=== PATIENT | female | born 1940 | race Caucasian/White ===

== ENCOUNTER 2017-11-15 10:36 | Emergency (ER) | payer MEDICARE, OTHER, SELFPAY ==
[2017-11-15 10:37] VITALS: BP 99/50; PULSE 58; RESP 17; TEMP 36.1; O2SAT 100; BMI 21.5
--- NOTE | 2017-11-15 12:06 | CT_ITS ---
STUDY: CT ABDOMEN AND PELVIS WITHOUT CONTRAST REASON FOR EXAM: Female, 77 years old. Abdominal pain and diarrhea. RADIATION DOSAGE (If Supplied By Facility): CTDIvol = ( 6.09 ) mGy, DLP = ( 283.11 ) mGycm TECHNIQUE: Transaxial images were obtained from the dome of the diaphragm to the symphysis pubis without oral contrast, and without intravenous contrast. Sagittal and coronal images were reconstructed. Individualized dose optimization techniques were used for this CT. COMPARISON: Comparison is made with prior study dated April 07, 2017. FINDINGS: The visualized lung bases are unremarkable. The visualized portions of the heart are within normal limits. Normal liver. There are surgical clips in the gallbladder fossa consistent with a prior cholecystectomy. Normal spleen. Normal pancreas. Normal bilateral adrenal glands. Normal right kidney. Normal left kidney. Normal visualized stomach. Normal small intestine. There are multiple colonic diverticula consistent with diverticulosis. The appendix is visualized and appears normal. There is diffuse atherosclerotic calcification of the abdominal aorta and its major visceral branches, without a demonstrated aneurysm. Normal inferior vena cava. There is borderline retroperitoneal lymphadenopathy with enlarged nodes no greater than 10mm in the short axis diameter. Normal urinary bladder. Normal abdominal wall. There are diffuse degenerative changes of the visualized lumbar spine. CT/Abdomen/Pelvis without Cont IMPRESSION: Sigmoid diverticulosis. No inflammatory changes are seen at this time. Electronically Signed: Miki Fuentes MD at 14:12 EDT Tel [phone], Service support ,
[2017-11-15 13:05] VITALS: PULSE 60; RESP 16
[2017-11-15] MEDS: 0.9% Normal Saline 1,000 ML 1000 ML IV (13:16)
[2017-11-15] MEDS: Ondansetron 4 MG/2 ML Vial IV (13:17)
[2017-11-15 13:26] LABS: ALB/GLOB Ratio 0.8 RATIO (0.9-2.4); AST(SGOT) 43 U/L (15-37); Alanine Aminotransfer ALT/SGPT 43 U/L (13-56); Alkaline Phosphatase 111 U/L (45-117); Anion Gap 8 (5-15); BUN 11 mg/dL (7-18); BUN/Creat Ratio 12.6 RATIO (10-20); Calcium,Total 9.4 mg/dL (8.5-10.1); Chloride 102 mmol/L (98-107); Creatinine, Serum 0.87 mg/dL (0.55-1.02); EST Glomerular Filtration Rate 67 mL/min (>60); Est Glom Filt Rate - Afr Amer 81 mL/min (>60); Estimated Creatinine Clearance 48.73 ml/min; Globulin 4.9 g/dL (2.2-4.2); Glucose 87 mg/dL (74-106); Lipase 172 U/L (73-393); Potassium 3.9 mmol/L (3.5-5.1); Protein, Total 8.9 g/dL (6.4-8.2); Sodium Level 138 mmol/L (136-145)
[2017-11-15 13:39] LABS: Absolute Lymphocyte Count 2.65 X10^3/ul (0.83-4.51); Absolute Neutrophil Count 5.9 X10^3/uL (2.0-7.7); Basophil# 0.03 X10^3/uL; Basophil% 0.3 % (0-1); Eosinophil# 0.18 X10^3/uL; Eosinophils% 1.9 % (0-5); Hematocrit 40.9 % (37-47); Hemoglobin 12.9 g/dl (12.0-15.0); Lymphocyte # 2.65 X10^3/ul (4.0); Lymphocyte % 27.9 % (19-41); Mean Corp Hgb Conc 31.5 g/gl (32-36); Mean Corpuscular Hgb 29.5 pg (27.0-32.0); Mean Corpuscular Volume 93.4 fL (81-99); Mean Platelet Vol. 10.7 fl (6.2-12.0); Monocyte# 0.67 X10^3/uL; Monocyte% 7.1 % (0-10); Neutrophil # 5.94 X10^3/uL (2.7-7.7); Neutrophil % 62.6 % (47-70); Platelet Count 273 K/mm3 (150-450); RBC Distribution Width CV 14.1 % (11.6-14.6); RBC Distribution Width SD 46.2 fl (35.1-43.9); Red Blood Count 4.38 M/mm3 (4.2-5.4); White Blood Count 9.5 K/mm3 (4.4-11.0)
[2017-11-15 13:41] LABS: POSITIVE COUNT NO; POSITIVE DIFFERENTIAL NO; POSITIVE MORPHOLOGY NO
[2017-11-15 14:20] LABS: International Normalized Ratio 2.7; Prothrombin Time (Protime)PT. 28.8 SECONDS (11.7-14.9)
--- NOTE | 2017-11-15 15:01 | ED.DCSUM_ITS ---
- ER Visit Summary Date of Service: 11/15/17 Chief Complaint: Abdominal pain and diarrhea History of Present Illness: The patient is a 77 F who states that for the past 4 days she has had diarrhea. She notes 2 episodes last night an episode this morning. She notes a crampy pain that comes and goes across her upper abdomen. She notes a history of IBS as well as diverticulitis. She is on digoxin as well as Coumadin for atrial fibrillation. She denies any fevers. She denies any blood in stool. She has been not eating as much but has been drinking water and notes that her urine is the same color as before the diarrhea. Physical Examination: Afebrile vital signs are stable blood pressure 99/56 which the patient states is normal. Gen: Well-nourished well-developed Head: Normocephalic atraumatic Eyes: Perrl EOMI ENT: TMs clear no rhinorrhea moist mucous membranes Neck: Supple no lymphadenopathy no JVD nontender CVS: Regular rate rhythm no murmurs normal S1-S2 Respiratory: No distress clear to auscultation bilaterally chest nontender Abdomen: Soft nontender nondistended normal bowel sounds no masses Back: Nontender Extremity: Nontender no edema Skin: Normal color no rash Neuro: alert orientated ?3 CN II-XII intact normal strength sensation reflexes gait cerebellar Psych: Normal affect normal mood Test Results: A [address] the pelvis without IV contrast did not demonstrate any colitis. Emergency Department Course and Treatment: Patient received IV fluids and Zofran. Patient will be discharged home with supportive care with instructions for Imodium. She is to continue hydration. She would like to advance her diet to think this is reasonable. Return if worsening or concerns. Impression: 1. Diarrhea This note was generated with [employer] dictation software. It may contain incorrect words, spelling, and punctuation that were not noted in review of the chart prior to signing ED Disposition - Plan for ED Patient: Disposition: Home or Assisted Living Chief Complaint: Diarrhea Instructions: ED Diarrhea Viral Referrals: Kwabena Marques MD [Primary Care Provider] - 3-5 Days if not improving
[2017-11-15 15:06] LABS: Digoxin Level 1.37 ng/mL (0.80-2.00)
[2017-11-15 15:47] VITALS: BP 116/52; PULSE 61; RESP 16
== END 2017-11-15 15:48 | disposition home or self-care (01) ==
PROVIDERS: Emergency Provider Emergency Medicine; Family Provider Family Medicine; PCP Family Medicine
DX: K58.0 Irritable bowel syndrome with diarrhea (principal); R10.9 Unspecified abdominal pain; R11.0 Nausea; I48.91 Unspecified atrial fibrillation; Z79.01 Long term (current) use of anticoagulants
CPT/HCPCS: 74176; 80053; 80162; 83690; 85025; 85610; 99283; J7030; A4216; J2405

== ENCOUNTER 2021-04-30 09:22 | Inpatient (IN) | payer MEDICARE, OTHER, SELFPAY ==
[2021-04-30] VITALS (30 sets, daily range): BP systolic 83–127; BP diastolic 38–88; PULSE 70–161; RESP 16–24; TEMP 35.9–37.2; O2SAT 87–96; BMI 23.0; BMI 22.6
--- NOTE | 2021-04-30 09:37 | EKG12_ITS ---
Test Reason : SOB Blood Pressure : / mmHG Vent. Rate : 095 BPM Atrial Rate : 202 BPM P-R Int : 000 ms QRS Dur : 074 ms QT Int : 336 ms P-R-T Axes : 000 076 099 degrees QTc Int : 422 ms Atrial fibrillation Nonspecific ST abnormality Abnormal ECG Confirmed by REJI FLEMING, LAITH ([id number]), film editor supervisor JACE EPPS ([id number]) on 05/02/2021 11:26:24 AM Referred By: MR Confirmed By:LAITH MENDOZA MD
--- NOTE | 2021-04-30 09:41 | ED.VIS.DYS ---
HPI History of Present Illness Chief Complaint: Shortness of Breath Narrative Narrative: Patient presenting for evaluation secondary to shortness of breath. Patient has a underlying history of chronically atrial fibrillation on anticoagulation, hypothyroidism, and mild intermittent asthma. Patient apparently had a relatively sudden onset of symptoms. Associated with cough, shortness of breath, chills, and dry heaves that started yesterday. Patient states that she has been feeling generally ill. She has not measured her temperature at home. She denies any chest pain. She denies any abdominal pain. She does feel that potentially she is getting dehydrated. Daughter called EMS EMS noted that the patient had low pulse ox is in the 70s and 80s she was placed on supplemental oxygen was brought to the emergency department. Patient denies any sick contacts. Review of systems otherwise negative. PFSH PFSH Home Medications acetaminophen [Tylenol] 325 mg PO Q4H PRN PRN 04/10/16 [History Last Taken 04/09/16] digoxin 0.125 mg PO DAILY 04/10/16 [History Last Taken 04/26/16 10:20] levothyroxine 50 mcg PO DAILY 04/10/16 [History Last Taken 04/26/16 05:30] cholestyramine (with sugar) 4 g PO DAILY 30 Days powder 04/14/16 [Rx Last Taken Unknown] loperamide 2 mg PO Q4H PRN PRN #0 capsule 04/14/16 [Rx Last Taken Unknown] metoprolol tartrate 50 mg PO BID tablet 04/14/16 [Rx Last Taken Unknown] multivitamin,[id number]-[id number]-thsgfokh [Therems-M] 1 tab PO DAILY 04/18/16 [History Last Taken 04/26/16 09:25] pantoprazole 40 mg PO DAILY tablet 04/26/16 [Rx Last Taken 04/26/16 09:25] ondansetron 4 mg PO Q8H PRN PRN #60 tablet 05/02/16 [Rx Last Taken Unknown] sertraline 100 mg PO DAILY #30 tablet 05/02/16 [Rx Last Taken Unknown] alprazolam 0.25 mg PO QHS 04/07/17 [History Last Taken Unknown] amoxicillin-pot clavulanate 875 mg PO Q12H #20 tablet 04/07/17 [Rx Last Taken Unknown] mometasone [Asmanex 220 mcg Twisthaler] 440 mcg INHALATION DAILY PRN 04/07/17 [History Last Taken Unknown] ondansetron 4 mg PO Q8H PRN PRN #10 tab 04/07/17 [Rx Last Taken Unknown] oxycodone 5 mg PO Q6H PRN PRN #20 tablet 04/07/17 [Rx Last Taken Unknown] warfarin [Jantoven] 2.5 mg PO DAILY 04/07/17 [History Last Taken Unknown] dicyclomine mg 04/30/21 [History Last Taken Unknown] warfarin [Jantoven] 04/30/21 [History Last Taken Unknown] Allergy/AdvReac Type Severity Reaction Status Date / Time morphine Allergy Intermediate Other Verified 04/30/21 09:44 aspirin Allergy Rash, hives Verified 04/30/21 09:44 Iodinated Contrast Media Allergy Hives Verified 04/30/21 09:44 [DYEE] Tetanus Vaccines and Toxoid Allergy Rash Verified 04/30/21 09:44 codeine AdvReac Severe Other Verified 04/30/21 09:44 azithromycin AdvReac Other Verified 04/30/21 09:44 [From Zithromax Z-Landen] cefaclor [From Ceclor] AdvReac Vomiting Verified 04/30/21 09:44 metronidazole [From Flagyl] AdvReac Nausea Verified 04/30/21 09:44 Sulfa (Sulfonamide AdvReac double Verified 04/30/21 09:44 Antibiotics) vision Social History Smoking Status: Former smoker ROS ROS ED Constitutional Constitutional ED: Reports chills ENT ENT ED: Denies rhinorrhea Cardiovascular Cardiovascular: Denies chest pain Respiratory/Chest Respiratory/Chest: Reports cough and dyspnea Gastrointestinal Gastrointestinal: Reports nausea and vomiting Genitourinary Genitourinary ED: Denies dysuria or hematuria Musculoskeletal Musculoskeletal: Denies back pain Integumentary Denies rash Neurologic Neurologic: Denies paresthesias or weakness Psychiatric Psychiatric: Denies depression Endocrine Endocrinology: Denies fatigue Allergic/Immunologic Allergic/Immunologic ED: Denies urticaria EXAM Physical Exam Const Vital Signs: 04/30/21 09:23 04/30/21 09:28 04/30/21 09:29 Temperature 98 F 98 F Temperature Source Oral Oral Pulse Rate 78 78 Respiratory Rate 24 H 24 H Respiratory Effort Short of Breath Respiratory Depth Deep Respiratory Pattern Hyperpnea Blood Pressure 83/58 L 83/58 L Blood Pressure Mean 66 66 Pulse Ox 87 93 Oxygen Delivery Method Room Air Nasal Cannula Oxygen Flow Rate (L/min) 2 2 04/30/21 09:45 04/30/21 09:46 04/30/21 10:11 Temperature 98 F Temperature Source Oral Pulse Rate Respiratory Rate Respiratory Effort Respiratory Depth Respiratory Pattern Blood Pressure 90/49 L Blood Pressure Mean 62 Pulse Ox 93 Oxygen Delivery Method Nasal Cannula Oxygen Flow Rate (L/min) 2 04/30/21 10:29 04/30/21 10:48 04/30/21 10:49 Temperature 98.9 F Temperature Source Temporal Pulse Rate Respiratory Rate Respiratory Effort Respiratory Depth Respiratory Pattern Blood Pressure 99/54 L Blood Pressure Mean 69 Pulse Ox 94 Oxygen Delivery Method Nasal Cannula Oxygen Flow Rate (L/min) 04/30/21 10:50 04/30/21 11:14 04/30/21 11:32 Temperature 98.9 F 98.9 F 99 F Temperature Source Temporal Temporal Temporal Pulse Rate 78 78 Respiratory Rate 24 H 24 H Respiratory Effort Respiratory Depth Respiratory Pattern Blood Pressure 99/54 L 99/54 L 114/88 H Blood Pressure Mean 69 69 96 Pulse Ox 94 94 Oxygen Delivery Method Nasal Cannula Nasal Cannula Oxygen Flow Rate (L/min) 2 2 04/30/21 11:34 Temperature 99 F Temperature Source Temporal Pulse Rate 80 Respiratory Rate 24 H Respiratory Effort Respiratory Depth Respiratory Pattern Blood Pressure 114/88 H Blood Pressure Mean 96 Pulse Ox 94 Oxygen Delivery Method Nasal Cannula Oxygen Flow Rate (L/min) 2 Positive well nourished and well developed Constitutional Narrative: Elderly female not acutely distressed General Appearance ED: well developed and NAD HEENT Reports dry mucous membranes Negative for trauma or tenderness Mouth ED: Yes dry mucous membranes Mouth: dry mucous membranes Eyes EOMs intact bilaterally Neck no lymphadenopathy, supple and no JVD Chest Wall inspection of chest normal Resp normal respiratory effort Resp Narrative: Rales noted throughout the left lung Cardio regular rate, no murmurs and peripheral pulses 2+ throughout Cardio Narrative: Irregular rhythm 2+ radial pulses bilaterally symmetric GI normal to inspection, nondistended, normoactive bowel sounds, non-tender and no masses Palpation: soft Back/Spine normal to inspection Extremity normal to inspection General Extremety ED: Negative for tenderness Neuro oriented x3 and no sensory deficits noted Sensorium / Orientation: alert Motor Exam: strength 5/5 throughout Psych mental status grossly normal Skin no rashes or lesions noted MDM MDM MDM Narrative Medical decision making narrative: Patient presented secondary to shortness of breath. Patient was noted to be hypoxic on room air has unilateral abnormal breath sounds, my supposition is that the patient likely has pneumonia. Chest x-ray by my personal review as well as radiology demonstrates asymmetry on the left with prominent interstitial markings potentially consistent with pneumonia patient was noted to have a leukocytosis. Patient was given fluids as she presented with modest hypotension she has a leukocytosis of 24,000 she was given Rocephin and azithromycin. Patient's blood pressure was fluid responsive, her lactic acid resulted as 4 so she was given additional fluid resuscitation. Patient has mild JOYCE. This is a presentation of severe sepsis with fluid responsive hypotension. Patient will be admitted for further treatment. Lab Data Labs: Laboratory Results - last 24 hr 04/30/21 04/30/21 04/30/21 09:30 10:10 10:10 WBC 24.0 H RBC 4.41 Hgb 13.4 Hct 41.1 MCV 93.2 MCH 30.4 MCHC 32.6 RDW Std Deviation 49.6 H RDW Coeff of Saundra 14.5 Plt Count 158 MPV 10.7 Immature Gran % (Auto) 1.200 H Neut % (Auto) 83.5 H Lymph % (Auto) 10.1 L [place] % (Auto) 4.8 Eos % (Auto) 0.0 Baso % (Auto) 0.4 Absolute Neuts (auto) 20.0 H Absolute Lymphs (auto) 2.41 Nucleated RBC % 0 PT 23.8 H INR 2.2 APTT 38.3 H Sodium Potassium Chloride Carbon Dioxide Anion Gap BUN Creatinine Estim Creat Clear Calc Est GFR (MDRD) Af Amer Est GFR (MDRD) Non-Af BUN/Creatinine Ratio Glucose Lactic Acid Calcium Magnesium 1.8 Total Bilirubin AST ALT Alkaline Phosphatase Total Creatine Kinase 29 Total Protein Albumin Globulin Albumin/Globulin Ratio 04/30/21 04/30/21 10:10 10:10 WBC RBC Hgb Hct MCV MCH MCHC RDW Std Deviation RDW Coeff of Saundra Plt Count MPV Immature Gran % (Auto) Neut % (Auto) Lymph % (Auto) [place] % (Auto) Eos % (Auto) Baso % (Auto) Absolute Neuts (auto) Absolute Lymphs (auto) Nucleated RBC % PT INR APTT Sodium 141 Potassium 4.0 Chloride 106 Carbon Dioxide 27.0 Anion Gap 8 BUN 21 H Creatinine 1.25 H Estim Creat Clear Calc 32.30 Est GFR (MDRD) Af Amer 53 L Est GFR (MDRD) Non-Af 44 L BUN/Creatinine Ratio 16.8 Glucose 134 H Lactic Acid 4.3 H* Calcium 9.7 Magnesium Total Bilirubin 2.80 H AST 38 H ALT 37 Alkaline Phosphatase 87 Total Creatine Kinase Total Protein 7.5 Albumin 3.2 Globulin 4.3 H Albumin/Globulin Ratio 0.7 L Radiography Diagnostic Testing: Clinical Impression(s) from Imaging Studies Chest X-Ray 04/30/21 09:50 IMPRESSION: Cardiomegaly. Prominent interstitial markings within the left midlung, may be secondary to confluence of shadows however cannot exclude underlying edema and/or an infectious process. Electronically Signed: Nieves Torres MD at 10:05 EST Tel , Service support , Critical Care Time Critical care time (excluding procedures): 30-74 minutes (41), Including time spent:, Discussing w/Patient &/or Family/Financial Services Agent, Discussing w/Consultants, Arranging Admission or Transfer and Performing Direct Patient Care at Bedside Discharge Plan Dx/Rx/DC Orders Clinical Impression: Community acquired pneumonia, Severe sepsis Disposition Disposition: Acute Care [facility] Discharge Date/Time: 04/30/21 12:31
--- NOTE | 2021-04-30 09:50 | RAD_ITS ---
STUDY: X-RAY CHEST REASON FOR EXAM: Female, 80 years old. Shortness of breath TECHNIQUE: Single frontal view of the chest. COMPARISON: 04/10/2016 FINDINGS: There are prominent interstitial markings within the left midlung. There is stable minimal left basilar atelectasis and/or scarring. There is cardiomegaly. Normal mediastinum and jorge luis. Normal visualized pulmonary arteries. Normal visualized aortic arch and descending thoracic aorta. Normal visualized thoracic spine. Normal visualized ribs, clavicles, and shoulders. There is no demonstrated abnormality of the visualized soft tissue structures of the upper abdomen. RAD/Chest 1 View (Portable) IMPRESSION: Cardiomegaly. Prominent interstitial markings within the left midlung, may be secondary to confluence of shadows however cannot exclude underlying edema and/or an infectious process. Electronically Signed: Nieves Torres MD at 10:05 EST Tel , Service support ,
[2021-04-30] MEDS: 0.9% Normal Saline 1,000 ML 999 ML IV ×2 (10:02→13:09)
[2021-04-30] MEDS: Ondansetron 4 MG/2 ML Vial IV ×2 (10:02→12:21)
[2021-04-30 10:24] LABS: Absolute Lymphocyte Count 2.41 X10^3/uL (0.83-4.51); Basophil% 0.4 % (0-1); Hematocrit 41.1 % (37-47); Hemoglobin 13.4 g/dL (12.0-15.0); Lymphocyte # 2.41 X10^3/ul (0.83-4.51); Lymphocyte % 10.1 % (19-41); Mean Corp Hgb Conc 32.6 g/dL (32-36); Mean Corpuscular Hgb 30.4 pg (27.0-32.0); Mean Corpuscular Volume 93.2 fL (81-99); Mean Platelet Vol. 10.7 fl (6.2-12.0); Monocyte# 1.15 X10^3/uL; Monocyte% 4.8 % (0-10); NRBC Flagged by Analyzer 0 % (0-5); Neutrophil # 20.02 X10^3/uL (2.7-7.7); Neutrophil % 83.5 % (47-70); POSITIVE DIFFERENTIAL YES; Platelet Count 158 K/mm3 (150-450); RBC Distribution Width CV 14.5 % (11.6-14.6); RBC Distribution Width SD 49.6 fl (35.1-43.9); Red Blood Count 4.41 M/mm3 (4.2-5.4)
[2021-04-30 10:27] LABS: Differential Indicated SCAN CRITERIA MET
[2021-04-30 10:31] LABS: International Normalized Ratio 2.2; Partial Thromboplast Time 38.3 Seconds (24.1-36.2); Prothrombin Time (Protime)PT. 23.8 SECONDS (11.7-14.9)
[2021-04-30 10:40] LABS: ALB/GLOB Ratio 0.7 RATIO (0.9-2.4); AST(SGOT) 38 U/L (15-37); Alanine Aminotransfer ALT/SGPT 37 U/L (13-56); Albumin, Serum 3.2 g/dL (3.2-5.0); Alkaline Phosphatase 87 U/L (45-117); Anion Gap 8 (5-15); BUN 21 mg/dL (7-18); BUN/Creat Ratio 16.8 RATIO (10-20); Calcium,Total 9.7 mg/dL (8.5-10.1); Chloride 106 mmol/L (98-107); Creatinine, Serum 1.25 mg/dL (0.55-1.02); EST Glomerular Filtration Rate 44 mL/min (>60); Est Glom Filt Rate - Afr Amer 53 mL/min (>60); Globulin 4.3 g/dL (2.2-4.2); Glucose 134 mg/dL (74-106); Protein, Total 7.5 g/dL (6.4-8.2); Sodium Level 141 mmol/L (136-145)
[2021-04-30] MEDS: Ceftriaxone 1 GM/50 ML BAG IV (11:06)
[2021-04-30 11:16] LABS: Lactic Acid 4.3 mmol/L (0.4-1.9)
[2021-04-30] MEDS: 0.9% Normal Saline 1,000 ML 1000 ML IV (11:23)
--- NOTE | 2021-04-30 11:48 | PCM.HP.STD ---
HPI - General General Date of Admission: 04/30/21 HPI Narrative ION MUNIZ, is a 80 F with multiple medical problems as listed below was brought in by EMS for shortness of breath, shallow and slow breathing, mild cough low-grade fever and hypoxia. Patient has been feeling weak and tired for last 1 week but yesterday she developed chills, cough, dry heaving, body aches and shortness of breath. She was found hypoxic pulse ox 85% on room air, not on oxygen at baseline. Patient has history of asthma but does not use his rescue inhaler, in fact she does not have and does not require it. She uses maintenance inhaler Asmanex. She had Covid vaccine but did not had booster yet. In ED, she was found hypotensive blood pressure 83/58, baseline systolic 110 during her last PCP office visit in February 2021. T-max 99 Fahrenheit. Her blood pressure responded with IV fluid, 110/88. Lactic acid elevated, 4.3. Leukocytosis with left shift, immature granulocytes. INR therapeutic. Magnesium 1.8. Chest x-ray shows interstitial opacity over left midlung. Patient is started on ceftriaxone and further admitted azithromycin [facility] Home Medications acetaminophen [Tylenol] 325 mg PO Q4H PRN PRN 04/10/16 [History Last Taken 04/09/16] digoxin 0.125 mg PO DAILY 04/10/16 [History Last Taken 04/26/16 10:20] levothyroxine 50 mcg PO DAILY 04/10/16 [History Last Taken 04/26/16 05:30] cholestyramine (with sugar) 4 g PO DAILY 30 Days powder 04/14/16 [Rx Last Taken Unknown] loperamide 2 mg PO Q4H PRN PRN #0 capsule 04/14/16 [Rx Last Taken Unknown] metoprolol tartrate 50 mg PO BID tablet 04/14/16 [Rx Last Taken Unknown] multivitamin,[id number] [Therems-M] 1 tab PO DAILY 04/18/16 [History Last Taken 04/26/16 09:25] pantoprazole 40 mg PO DAILY tablet 04/26/16 [Rx Last Taken 04/26/16 09:25] ondansetron 4 mg PO Q8H PRN PRN #60 tablet 05/02/16 [Rx Last Taken Unknown] sertraline 100 mg PO DAILY #30 tablet 05/02/16 [Rx Last Taken Unknown] alprazolam 0.25 mg PO QHS 04/07/17 [History Last Taken Unknown] amoxicillin-pot clavulanate 875 mg PO Q12H #20 tablet 04/07/17 [Rx Last Taken Unknown] mometasone [Asmanex 220 mcg Twisthaler] 440 mcg INHALATION DAILY PRN 04/07/17 [History Last Taken Unknown] ondansetron 4 mg PO Q8H PRN PRN #10 tab 04/07/17 [Rx Last Taken Unknown] oxycodone 5 mg PO Q6H PRN PRN #20 tablet 04/07/17 [Rx Last Taken Unknown] warfarin [Jantoven] 2.5 mg PO DAILY 04/07/17 [History Last Taken Unknown] dicyclomine mg 04/30/21 [History Last Taken Unknown] warfarin [Jantoven] 04/30/21 [History Last Taken Unknown] Allergy/AdvReac Type Severity Reaction Status Date / Time morphine Allergy Intermediate Other Verified 04/30/21 09:44 aspirin Allergy Rash, hives Verified 04/30/21 09:44 Iodinated Contrast Media Allergy Hives Verified 04/30/21 09:44 [DYEE] Tetanus Vaccines and Toxoid Allergy Rash Verified 04/30/21 09:44 codeine AdvReac Severe Other Verified 04/30/21 09:44 azithromycin AdvReac Other Verified 04/30/21 09:44 [From Zithromax Z-Landen] cefaclor [From Ceclor] AdvReac Vomiting Verified 04/30/21 09:44 metronidazole [From Flagyl] AdvReac Nausea Verified 04/30/21 09:44 Sulfa (Sulfonamide AdvReac double Verified 04/30/21 09:44 Antibiotics) vision Social History Smoking Status: Former smoker ROS ROS Narrative Constitutional: Reports fatigue and weakness. Chills HEENT: Reports systems reviewed and no addt'l complaints, except as documented Respiratory/Chest: Denies chest pain, shallow and slow breathing as per daughter Gastrointestinal: Denies coffee ground emesis, hematemesis or vomiting Genitourinary: Denies burning urination or new urinary tract symptoms Musculoskeletal: Left shoulder pain probably from shortness of breath. Denies chronic left shoulder pain. Reports arthritis and limited range of motion in lower extremities Neurologic: Denies seizure-like activity skin: No ulcer. No rash Endocrinology: Reports systems reviewed and no addt'l complaints, except as documented Hematologic/Lymphatic: Reports systems reviewed and no addt'l complaints, except as documented Rest 12 ROS are negative except as mentioned in HPI Vital Signs Vital Signs Vital Signs: 04/30/21 09:23 04/30/21 09:28 04/30/21 09:29 Temperature 98 F 98 F Temperature Source Oral Oral Pulse Rate 78 78 Respiratory Rate 24 H 24 H Respiratory Effort Short of Breath Respiratory Depth Deep Respiratory Pattern Hyperpnea Blood Pressure 83/58 L 83/58 L Blood Pressure Mean 66 66 Pulse Ox 87 93 Oxygen Delivery Method Room Air Nasal Cannula Oxygen Flow Rate (L/min) 2 2 04/30/21 09:45 04/30/21 09:46 04/30/21 10:11 Temperature 98 F Temperature Source Oral Pulse Rate Respiratory Rate Respiratory Effort Respiratory Depth Respiratory Pattern Blood Pressure 90/49 L Blood Pressure Mean 62 Pulse Ox 93 Oxygen Delivery Method Nasal Cannula Oxygen Flow Rate (L/min) 2 04/30/21 10:29 04/30/21 10:48 04/30/21 10:49 Temperature 98.9 F Temperature Source Temporal Pulse Rate Respiratory Rate Respiratory Effort Respiratory Depth Respiratory Pattern Blood Pressure 99/54 L Blood Pressure Mean 69 Pulse Ox 94 Oxygen Delivery Method Nasal Cannula Oxygen Flow Rate (L/min) 04/30/21 10:50 04/30/21 11:14 04/30/21 11:32 Temperature 98.9 F 98.9 F 99 F Temperature Source Temporal Temporal Temporal Pulse Rate 78 78 Respiratory Rate 24 H 24 H Respiratory Effort Respiratory Depth Respiratory Pattern Blood Pressure 99/54 L 99/54 L 114/88 H Blood Pressure Mean 69 69 96 Pulse Ox 94 94 Oxygen Delivery Method Nasal Cannula Nasal Cannula Oxygen Flow Rate (L/min) 2 2 Weight Weight: 138 lb 3.677 oz Body Mass Index (BMI) 23.0 Physical Exam Narrative General: Alert, Oriented x3, Cooperative HEENT: Atraumatic, PERRLA, EOMI, Normocephalic Oral: No Gingival or Mucosal Lesions/ Ulcerations Neck: Supple, No JVD, Negative Carotid Bruits Lungs: Air entry diminished predominantly in left lung. Mild bilateral expiratory rhonchi mainly left lung. Hypoxia Cardiovascular: A. fib, Normal S1, Normal S2, mid diastolic murmur over cardiac apex Abdomen: Bowel Sounds Present, Soft, Non Tender, Non-Distended : No renal angle tenderness. No suprapubic tenderness. Extremities: No edema, Capillary Refill Less than 3 Seconds Skin: No rashes, No breakdown Musculoskeletal: No Tenderness to Palpation of Joints or Extremities Neurological: Cranial nerves II-XII grossly intact, DTR 2+/4 and Symmetrical, Neuro grossly intact Psych/Mental Status: Flat affect. Results Lab / Micro Data Result Diagrams: 04/30/21 10:10 04/30/21 10:10 Labs: Laboratory Results - last 24 hr 04/30/21 10:10: WBC 24.0 H, RBC 4.41, Hgb 13.4, Hct 41.1, MCV 93.2, MCH 30.4, MCHC 32.6, RDW Std Deviation 49.6 H, RDW Coeff of Saundra 14.5, Plt Count 158, MPV 10.7, Immature Gran % (Auto) 1.200 H, Neut % (Auto) 83.5 H, Lymph % (Auto) 10.1 L, [place] % (Auto) 4.8, Eos % (Auto) 0.0, Baso % (Auto) 0.4, Absolute Neuts (auto) 20.0 H, Absolute Lymphs (auto) 2.41, Nucleated RBC % 0 04/30/21 10:10: PT 23.8 H, INR 2.2, APTT 38.3 H 04/30/21 10:10: Sodium 141, Potassium 4.0, Chloride 106, Carbon Dioxide 27.0, Anion Gap 8, BUN 21 H, Creatinine 1.25 H, Estim Creat Clear Calc 32.30, Est GFR (MDRD) Af Amer 53 L, Est GFR (MDRD) Non-Af 44 L, BUN/Creatinine Ratio 16.8, Glucose 134 H, Calcium 9.7, Total Bilirubin 2.80 H, AST 38 H, ALT 37, Alkaline Phosphatase 87, Total Protein 7.5, Albumin 3.2, Globulin 4.3 H, Albumin/Globulin Ratio 0.7 L 04/30/21 10:10: Lactic Acid 4.3 H* Micro: Microbiology 04/30/21 09:50 Mucosa - Nasopharyngeal Influenza Types A,B Direct FA (TYREE) - Final 04/30/21 09:50 Nasal Secretion SARS-CoV-2 Antigen (Rapid) - Final Radiology Impression Chest X-Ray 04/30/21 09:50 IMPRESSION: Cardiomegaly. Prominent interstitial markings within the left midlung, may be secondary to confluence of shadows however cannot exclude underlying edema and/or an infectious process. Electronically Signed: Nieves Torres MD at 10:05 EST Tel , Service support , Assessment & Plan Assessment/Plan (1) Community acquired pneumonia: (2) Severe sepsis: PLAN: 1. Septic shock (hypotension, lactic acidosis 4.3, total bilirubin 2.8, creatinine 1.25, leukocytosis with left shift) from left community-acquired pneumonia: Patient responded appropriately with IV fluid and blood pressure 114/88, 106/52. Continue IV fluid normal saline 100 mill per hour. Started on broad-spectrum antibiotic IV Zosyn and continue Zithromax for atypical coverage. Pneumonia work-up ordered. COVID-19 rapid antigen negative, PCR pending. MRSA nasal screen ordered. 2. Asthma exacerbation mostly due to pneumonia: IV Solu-Medrol 20 mg lower dose every 8 hourly, DuoNeb every 4 hourly, incentive spirometry and PEP. 3. Chronic A. fib on warfarin: INR is therapeutic. Hold antihypertensive and metoprolol today and resume when clinical status/hypotension improves and stabilizes on baseline. 4. Irritable bowel syndrome, diverticulosis, history of a sphincterotomy/removal of CBD sludge by ERCP in April 2016: Intermittently patient gets constipation, soft bowel/loose bowel movement. Monitor clinically. 5. Other comorbidities include chronic GERD/gastritis, hypothyroidism: Home medication reconciliation VTE prophylaxis: Patient on warfarin INR therapeutic. Monitor INR daily Living will/advanced directive/end of life care: Patient does have living will or advanced directive. Her is power of district attorney who is also elderly and daughter is trying to change, POA to her. After discussion of benefits/risks procedures involved with full code, DNR CC arrest and DNR CC, the patient and her daughter Mrs. Dailey Navarro unclear. His daughter said she will ask from her father and discuss among their family. By default we will put full code. Patient does want artificial life support including intubation, tube feed, ventilator and/chest compression, central venous catheter, vasopressor and DC shock if needed Total time spent in [id number] encounter in discussion of advanced directive 16 minutes. Microbiology Past 72 Hours 04/30/21 09:50 Mucosa - Nasopharyngeal Influenza Types A,B Direct FA (TYREE) - Final 04/30/21 09:50 Nasal Secretion SARS-CoV-2 Antigen (Rapid) - Final Laboratory Results 04/30/21 09:30: Magnesium 1.8, Total Creatine Kinase 29 04/30/21 10:10: WBC 24.0 H, RBC 4.41, Hgb 13.4, Hct 41.1, MCV 93.2, MCH 30.4, MCHC 32.6, RDW Std Deviation 49.6 H, RDW Coeff of Saundra 14.5, Plt Count 158, MPV 10.7, Immature Gran % (Auto) 1.200 H, Neut % (Auto) 83.5 H, Lymph % (Auto) 10.1 L, [place] % (Auto) 4.8, Eos % (Auto) 0.0, Baso % (Auto) 0.4, Absolute Neuts (auto) 20.0 H, Absolute Lymphs (auto) 2.41, Nucleated RBC % 0 04/30/21 10:10: PT 23.8 H, INR 2.2, APTT 38.3 H 04/30/21 10:10: Sodium 141, Potassium 4.0, Chloride 106, Carbon Dioxide 27.0, Anion Gap 8, BUN 21 H, Creatinine 1.25 H, Estim Creat Clear Calc 32.30, Est GFR (MDRD) Af Amer 53 L, Est GFR (MDRD) Non-Af 44 L, BUN/Creatinine Ratio 16.8, Glucose 134 H, Calcium 9.7, Total Bilirubin 2.80 H, AST 38 H, ALT 37, Alkaline Phosphatase 87, Total Protein 7.5, Albumin 3.2, Globulin 4.3 H, Albumin/Globulin Ratio 0.7 L 04/30/21 10:10: Lactic Acid 4.3 H* 04/30/21 11:43: COVID-19 ([place]) Pending Charges/Coding Visit Charges Inpatient E&M: 12307 Init Hosp L3 Procedures Hospitalists Procedures: 27531 Advncd Care Plan 30 Min
[2021-04-30 12:23] LABS: CPK Total, Creatine Kinase 29 U/L (26-192); Magnesium 1.8 mg/dL (1.6-2.6)
--- NOTE | 2021-04-30 13:23 | PCS.PANDOC ---
PANDEMIC DOCUMENTATION INITIATED: Date: 12/27/2020 Time: 190
[2021-04-30] MEDS: 0.9% Normal Saline 1,000 ML 100 ML IV (14:08)
[2021-04-30 14:14] LABS: Reflex Lactate? Y
[2021-04-30 15:08] LABS: M R Staph aureus DNA By PCR Negative (Negative)
[2021-04-30 15:09] LABS: Probe Check PASS; Specimen Processing Control PASS
[2021-04-30] MEDS: Ipratropium/Albuterol Sulfate 3 ML AMPUL.NEB INHALATION ×2 (15:15→18:57)
[2021-04-30 15:29] LABS: Lactic Acid 7.2 mmol/L (0.4-1.9)
[2021-04-30] MEDS: Metoclopramide 10 MG/2 ML Vial 5 MG IV (15:40)
[2021-04-30] MEDS: 0.9% Saline Lock 10 ML Syringe IV (15:40)
[2021-04-30] MEDS: Vancomycin IV 1,000 MG/200 ML BAG 200 MG IV (18:22)
[2021-04-30 18:57] LABS: Phosphorus 4.1 mg/dL (2.5-4.9)
[2021-04-30 19:34] LABS: Mucous, Urine 0 SEEN /hpf (<or=2+)
[2021-04-30 19:51] LABS: Lactic Acid 4.6 mmol/L (0.4-1.9)
[2021-04-30 19:58] LABS: Color, Urine Yellow (Yellow); Glucose, Dipstick Normal (Normal); Ketone-Dipstick 5 mg/dl (Negative); Leukocyte Esterase-Dipstick 25 /ul (Negative); Nitrite-Dipstick Negative (Negative); Occult Blood-Urine 10 /ul (Negative); Protein-Dipstick 30 mg/dl (Negative); Urine Bilirubin Dipstick Negative (Negative); Urine Clarity Cloudy (Clear); Urine Urobilinogen Normal (Normal)
[2021-04-30 20:04] LABS: Squamous Epithelial Cells - UA 0-5 SEEN /hpf (5-10)
[2021-04-30 20:06] LABS: Bacteria 1+ /hpf (None Seen); Hyaline Cast 0-5 SEEN /lpf (0-5)
[2021-04-30 20:08] LABS: Red Blood Cells-Urine 0-5 SEEN /hpf (0-5); White Blood Cells 0-5 SEEN /hpf (0-5)
--- NOTE | 2021-04-30 20:11 | PCM.RX.CS ---
Consult Pharmacy has been consulted to manage selected antiobiotic: Vancomycin Type of Consult: New start Suspected Infection: Pneumonia Labs: Sodium 141 mmol/L (136-145) 04/30/21 10:10 Potassium 4.0 mmol/L (3.5-5.1) 04/30/21 10:10 Chloride 106 mmol/L (98-107) 04/30/21 10:10 Carbon Dioxide 27.0 mmol/L (21.0-32.0) 04/30/21 10:10 Anion Gap 8 (5-15) 04/30/21 10:10 BUN 21 mg/dL (7-18) H 04/30/21 10:10 Creatinine 1.25 mg/dL (0.55-1.02) H 04/30/21 10:10 Est GFR (MDRD) Af Amer 53 mL/min (>60) L 04/30/21 10:10 Est GFR (MDRD) Non-Af 44 mL/min (>60) L 04/30/21 10:10 BUN/Creatinine Ratio 16.8 RATIO (10-20) 04/30/21 10:10 Glucose 134 mg/dL (74-106) H 04/30/21 10:10 Microbiology: Microbiology 04/30/21 17:45 Urine, Clean Catch Legionella Antigen - Final 04/30/21 17:45 Urine, Clean Catch Streptococcus pneumoniae Antigen (M - Final 04/30/21 13:45 Mucosa - Nasopharyngeal Respiratory Panel (PCR) - Final 04/30/21 09:50 Mucosa - Nasopharyngeal Influenza Types A,B Direct FA (TYREE) - Final 04/30/21 09:50 Nasal Secretion SARS-CoV-2 Antigen (Rapid) - Final Goal Trough: 15-20 mcg/mL Pharmacy Plan for Drug Dosing: Pharmacy Service will continue to monitor and adjust dosing as required. Medications Vancomycin HCl 750 mg/ Sodium (Chloride) 265 mls @ 250 mls/hr IV Q24H MIKE Discontinued Medications Vancomycin HCl (Vancomycin) 1,000 mg in 200 mls @ 200 mls/hr IV X1 ONE Stop: 04/30/21 18:59 Last Admin: 04/30/21 19:22 Dose: Infused Documented by: Follow-Up Labs: Trough Vancomycin Labs to be done on [date and time ordered]: 05/02 @ 0417
[2021-04-30] MEDS: 0.9% Normal Saline 1,000 ML 500 ML IV (20:28)
[2021-04-30 22:50] LABS: Reflex Lactate? Y
[2021-05-01] VITALS (22 sets, daily range): BP systolic 93–125; BP diastolic 51–74; PULSE 74–129; RESP 15–22; TEMP 35.8–36.7; O2SAT 93–99
[2021-05-01] MEDS: 0.9% Normal Saline 1,000 ML 125 ML IV ×2 (00:38→07:27)
[2021-05-01] MEDS: Ipratropium/Albuterol Sulfate 3 ML AMPUL.NEB INHALATION ×4 (06:48→18:54)
[2021-05-01 06:54] LABS: Absolute Lymphocyte Count 1.79 X10^3/uL (0.83-4.51); Absolute Neutrophil Count 17.6 X10^3/uL (2.0-7.7); Basophil# 0.06 X10^3/uL; Basophil% 0.3 % (0-1); Hematocrit 34.5 % (37-47); Hemoglobin 11.2 g/dL (12.0-15.0); Lymphocyte # 1.79 X10^3/ul (0.83-4.51); Lymphocyte % 8.6 % (19-41); Mean Corp Hgb Conc 32.5 g/dL (32-36); Mean Corpuscular Hgb 29.6 pg (27.0-32.0); Mean Platelet Vol. 11.2 fl (6.2-12.0); Monocyte# 1.02 X10^3/uL; Monocyte% 4.9 % (0-10); NRBC Flagged by Analyzer 0 % (0-5); Neutrophil # 17.56 X10^3/uL (2.7-7.7); Neutrophil % 83.8 % (47-70); Platelet Count 121 K/mm3 (150-450); RBC Distribution Width CV 14.9 % (11.6-14.6); RBC Distribution Width SD 49.9 fl (35.1-43.9); Red Blood Count 3.79 M/mm3 (4.2-5.4); White Blood Count 20.9 K/mm3 (4.4-11.0)
[2021-05-01 06:57] LABS: International Normalized Ratio 3.4; Prothrombin Time (Protime)PT. 33.5 SECONDS (11.7-14.9)
[2021-05-01 07:32] LABS: Anion Gap 8 (5-15); BUN 15 mg/dL (7-18); BUN/Creat Ratio 19.6 RATIO (10-20); Calcium,Total 8.1 mg/dL (8.5-10.1); Chloride 114 mmol/L (98-107); Creatinine, Serum 0.77 mg/dL (0.55-1.02); EST Glomerular Filtration Rate 77 mL/min (>60); Est Glom Filt Rate - Afr Amer 93 mL/min (>60); Glucose 141 mg/dL (74-106); Sodium Level 144 mmol/L (136-145)
[2021-05-01] MEDS: Digoxin 125 MCG Tablet PO (09:28)
[2021-05-01] MEDS: Pantoprazole Sodium 40 MG Tablet PO (09:29)
[2021-05-01] MEDS: Sertraline 100 MG Tablet PO (09:29)
[2021-05-01] MEDS: Doxycycline 100 MG CAPSULE PO ×2 (11:34→22:47)
--- NOTE | 2021-05-01 12:55 | PCM.PN.HOSP ---
Subjective Subjective Patient breathing status is better. No fever. Blood pressure 91/61 last night therefore 1 L was given. Patient is positive for liter balance therefore discontinue IV fluid. Temperature 96.8 ?F low. Objective Data Objective Data Vital Signs: Vital Signs Temp Pulse Resp BP Pulse Ox 96.7 F L 100 20 H 114/74 94 05/01/21 11:00 05/01/21 11:07 05/01/21 11:07 05/01/21 11:00 05/01/21 11:00 Oxygen Flow Rate (L/min) 2 Oxygen Delivery Method Nasal Cannula Weight: 140 lb 3.424 oz Body Mass Index (BMI) 22.6 Intake & Output: Intake and Output for Last 24 Hours 04/29/21 04/30/21 05/01/21 23:59 23:59 23:59 Intake Total 5045.42 / 5045.42 1861.66 / 1861.66 Output Total 900 / 900 700 / 700 Balance 4145.42 / 4145.42 1161.66 / 1161.66 Lab / Micro Data Result Diagrams: 05/01/21 06:19 05/01/21 06:19 Labs: Laboratory Results - last 24 hr 04/30/21 09:30: Phosphorus 4.1 04/30/21 11:43: COVID-19 ([place]) Not Detected 04/30/21 13:40: MRSA (PCR) Negative 04/30/21 14:40: Lactic Acid 7.2 H* 04/30/21 17:45: Urine Color Yellow, Urine Clarity Cloudy, Urine pH 5.0, Ur Specific [place] 1.020, Urine Protein 30 H, Urine Glucose (UA) Normal, Urine Ketones 5 H, Urine Occult Blood 10 H, Urine Nitrite Negative, Urine Bilirubin Negative, Urine Urobilinogen Normal, Ur Leukocyte Esterase 25 H, Urine RBC 0-5 SEEN, Urine WBC 0-5 SEEN, Ur Squamous Epith Cells 0-5 SEEN, Urine Bacteria 1+, Hyaline Casts 0-5 SEEN, Urine Mucus 0 SEEN 04/30/21 18:40: Lactic Acid 4.6 H* 05/01/21 06:19: WBC 20.9 H, RBC 3.79 L, Hgb 11.2 L, Hct 34.5 L, MCV 91.0, MCH 29.6, MCHC 32.5, RDW Std Deviation 49.9 H, RDW Coeff of Saundra 14.9 H, Plt Count 121 L, MPV 11.2, Immature Gran % (Auto) 2.400 H, Neut % (Auto) 83.8 H, Lymph % (Auto) 8.6 L, [place] % (Auto) 4.9, Eos % (Auto) 0.0, Baso % (Auto) 0.3, Absolute Neuts (auto) 17.6 H, Absolute Lymphs (auto) 1.79, Nucleated RBC % 0 05/01/21 06:19: Sodium 144, Potassium 4.0, Chloride 114 H, Carbon Dioxide 22.0, Anion Gap 8, BUN 15, Creatinine 0.77, Estim Creat Clear Calc 42.00, Est GFR (MDRD) Af Amer 93, Est GFR (MDRD) Non-Af 77, BUN/Creatinine Ratio 19.6, Glucose 141 H, Calcium 8.1 L 05/01/21 06:19: PT 33.5 H, INR 3.4 Micro: Microbiology 04/30/21 17:45 Urine, Clean Catch Legionella Antigen - Final 04/30/21 17:45 Urine, Clean Catch Streptococcus pneumoniae Antigen (M - Final 04/30/21 13:45 Mucosa - Nasopharyngeal Respiratory Panel (PCR) - Final 04/30/21 09:50 Mucosa - Nasopharyngeal Influenza Types A,B Direct FA (TYREE) - Final 04/30/21 09:50 Nasal Secretion SARS-CoV-2 Antigen (Rapid) - Final Physical Exam Narrative The patient had 6 beats of NSVT. Serum magnesium phosphorus level normal. Serum potassium 4.0. General: Alert, Oriented x3, Cooperative HEENT: Atraumatic, PERRLA, EOMI, Normocephalic Oral: No Gingival or Mucosal Lesions/ Ulcerations Neck: Supple, No JVD, Negative Carotid Bruits Lungs: Air entry diminished in bilateral lung bases. Mild expiratory rhonchi. Mild bilateral expiratory rhonchi mainly left lung. Hypoxia on 2 L of oxygen Cardiovascular: A. fib, heart rate in 90s normal S1, Normal S2, mid diastolic murmur over cardiac apex Abdomen: Bowel Sounds Present, Soft, Non Tender, Non-Distended : No renal angle tenderness. No suprapubic tenderness. Extremities: No edema, Capillary Refill Less than 3 Seconds Skin: No rashes, No breakdown Musculoskeletal: No Tenderness to Palpation of Joints or Extremities Neurological: Cranial nerves II-XII grossly intact, DTR 2+/4 and Symmetrical, Neuro grossly intact Psych/Mental Status: Flat affect. Assessment & Plan Assessment/Plan (1) Community acquired pneumonia: (2) Severe sepsis: PLAN: 1. Septic shock (hypotension, lactic acidosis 4.3, total bilirubin 2.8, creatinine 1.25, leukocytosis with left shift) from left community-acquired pneumonia: Patient responded appropriately with IV fluid and blood pressure 114/88, 106/52. Continue IV fluid normal saline 100 mill per hour. Started on broad-spectrum antibiotic IV Zosyn and continue Zithromax for atypical coverage. Pneumonia work-up ordered. COVID-19 rapid antigen negative, PCR pending. MRSA nasal screen ordered. 05/01: WBC count decreasing. Blood pressure improved. Patient is positive 4 liter balance therefore IV fluid discontinued. Discussed with nursing staff. WBC count improving. Patient does not want to take Zithromax but agreed for doxycycline. Vancomycin discontinued as MRSA nasal screen negative seems community-acquired pneumonia and low risk for MRSA. Respiratory panel negative urinary antigens negative. Previous culture reported no history of MRSA. On IV Zosyn. 2. Asthma exacerbation mostly due to pneumonia: IV Solu-Medrol 20 mg lower dose every 8 hourly, DuoNeb every 4 hourly, incentive spirometry and PEP. 3. Chronic A. fib on warfarin: INR is therapeutic. Hold antihypertensive and metoprolol today and resume when clinical status/hypotension improves and stabilizes on baseline. 05/01: INR 3.4. Warfarin discontinued. Monitor INR daily. 4. Irritable bowel syndrome, diverticulosis, history of a sphincterotomy/removal of CBD sludge by ERCP in April 2016: Intermittently patient gets constipation, soft bowel/loose bowel movement. Monitor clinically. 5. Other comorbidities include chronic GERD/gastritis, hypothyroidism: Home medication reconciliation VTE prophylaxis: Patient on warfarin INR therapeutic. Monitor INR daily Living will/advanced directive/end of life care: Patient does have living will or advanced directive. Her is power of criminal attorney who is also elderly and daughter is trying to change, POA to her. After discussion of benefits/risks procedures involved with full code, DNR CC arrest and DNR CC, the patient and her daughter Mrs. Dailey [place] unclear. His daughter said she will ask from her father and discuss among their family. By default we will put full code. Patient does want artificial life support including intubation, tube feed, ventilator and/chest compression, central venous catheter, vasopressor and DC shock if needed Total time spent in [id number] encounter in discussion of advanced directive 16 minutes. Microbiology Past 72 Hours 04/30/21 17:45 Urine, Clean Catch Legionella Antigen - Final 04/30/21 17:45 Urine, Clean Catch Streptococcus pneumoniae Antigen (M - Final 04/30/21 13:45 Mucosa - Nasopharyngeal Respiratory Panel (PCR) - Final 04/30/21 09:50 Mucosa - Nasopharyngeal Influenza Types A,B Direct FA (TYREE) - Final 04/30/21 09:50 Nasal Secretion SARS-CoV-2 Antigen (Rapid) - Final Laboratory Results 04/30/21 09:30: Phosphorus 4.1 04/30/21 11:43: COVID-19 ([place]) Not Detected 04/30/21 13:40: MRSA (PCR) Negative 04/30/21 14:40: Lactic Acid 7.2 H* 04/30/21 17:45: Urine Color Yellow, Urine Clarity Cloudy, Urine pH 5.0, Ur Specific [place] 1.020, Urine Protein 30 H, Urine Glucose (UA) Normal, Urine Ketones 5 H, Urine Occult Blood 10 H, Urine Nitrite Negative, Urine Bilirubin Negative, Urine Urobilinogen Normal, Ur Leukocyte Esterase 25 H, Urine RBC 0-5 SEEN, Urine WBC 0-5 SEEN, Ur Squamous Epith Cells 0-5 SEEN, Urine Bacteria 1+, Hyaline Casts 0-5 SEEN, Urine Mucus 0 SEEN 04/30/21 18:40: Lactic Acid 4.6 H* 05/01/21 06:19: WBC 20.9 H, RBC 3.79 L, Hgb 11.2 L, Hct 34.5 L, MCV 91.0, MCH 29.6, MCHC 32.5, RDW Std Deviation 49.9 H, RDW Coeff of Saundra 14.9 H, Plt Count 121 L, MPV 11.2, Immature Gran % (Auto) 2.400 H, Neut % (Auto) 83.8 H, Lymph % (Auto) 8.6 L, [place] % (Auto) 4.9, Eos % (Auto) 0.0, Baso % (Auto) 0.3, Absolute Neuts (auto) 17.6 H, Absolute Lymphs (auto) 1.79, Nucleated RBC % 0 05/01/21 06:19: Sodium 144, Potassium 4.0, Chloride 114 H, Carbon Dioxide 22.0, Anion Gap 8, BUN 15, Creatinine 0.77, Estim Creat Clear Calc 42.00, Est GFR (MDRD) Af Amer 93, Est GFR (MDRD) Non-Af 77, BUN/Creatinine Ratio 19.6, Glucose 141 H, Calcium 8.1 L 05/01/21 06:19: PT 33.5 H, INR 3.4 Charges/Coding Visit Charges Inpatient E&M: 28841 Subs Hosp L2
[2021-05-01] MEDS: 0.9% Saline Lock 10 ML Syringe IV ×2 (13:09→23:05)
[2021-05-01] MEDS: Metoprolol Tartrate 25 MG Tablet PO (17:51)
[2021-05-01] MEDS: Acetaminophen 325 MG Tablet 650 MG PO (20:17)
[2021-05-02] VITALS (18 sets, daily range): BP systolic 123–152; BP diastolic 64–80; PULSE 73–97; RESP 16–22; TEMP 36.4–36.7; O2SAT 92–96
[2021-05-02] MEDS: Levothyroxine 50 MCG Tablet PO (05:18)
[2021-05-02 06:22] LABS: Absolute Lymphocyte Count 1.18 X10^3/uL (0.83-4.51); Absolute Neutrophil Count 17.8 X10^3/uL (2.0-7.7); Basophil# 0.03 X10^3/uL; Basophil% 0.2 % (0-1); Hemoglobin 10.6 g/dL (12.0-15.0); Lymphocyte # 1.18 X10^3/ul (0.83-4.51); Lymphocyte % 5.9 % (19-41); Mean Corp Hgb Conc 32.1 g/dL (32-36); Mean Corpuscular Hgb 30.1 pg (27.0-32.0); Mean Corpuscular Volume 93.8 fL (81-99); Mean Platelet Vol. 11.5 fl (6.2-12.0); Monocyte# 0.64 X10^3/uL; Monocyte% 3.2 % (0-10); NRBC Flagged by Analyzer 0 % (0-5); Neutrophil # 17.83 X10^3/uL (2.7-7.7); Neutrophil % 89.6 % (47-70); Platelet Count 114 K/mm3 (150-450); RBC Distribution Width SD 52.1 fl (35.1-43.9); Red Blood Count 3.52 M/mm3 (4.2-5.4); White Blood Count 19.9 K/mm3 (4.4-11.0)
[2021-05-02 06:25] LABS: Prothrombin Time (Protime)PT. 39.3 SECONDS (11.7-14.9)
[2021-05-02 06:45] LABS: Anion Gap 6 (5-15); BUN 15 mg/dL (7-18); BUN/Creat Ratio 22.5 RATIO (10-20); Calcium,Total 9.2 mg/dL (8.5-10.1); Chloride 112 mmol/L (98-107); Creatinine, Serum 0.67 mg/dL (0.55-1.02); EST Glomerular Filtration Rate 90 mL/min (>60); Est Glom Filt Rate - Afr Amer 109 mL/min (>60); Glucose 139 mg/dL (74-106); Potassium 3.8 mmol/L (3.5-5.1); Sodium Level 141 mmol/L (136-145)
[2021-05-02] MEDS: Ipratropium/Albuterol Sulfate 3 ML AMPUL.NEB INHALATION ×4 (07:24→20:25)
[2021-05-02 07:57] LABS: International Normalized Ratio 4.1
[2021-05-02] MEDS: Digoxin 125 MCG Tablet PO (09:08)
[2021-05-02] MEDS: Sertraline 100 MG Tablet PO (09:09)
[2021-05-02] MEDS: Metoprolol Tartrate 25 MG Tablet PO ×2 (09:09→20:32)
[2021-05-02] MEDS: Pantoprazole Sodium 40 MG Tablet PO (09:09)
[2021-05-02] MEDS: Doxycycline 100 MG CAPSULE PO ×2 (09:09→20:32)
[2021-05-02] MEDS: Acetaminophen 325 MG Tablet 650 MG PO (09:13)
--- NOTE | 2021-05-02 11:50 | CASEMGMT ---
ARACELI GERBER assessment: Face to Face with patient for initial transition planning/care coordination assessment. ARACELI GERBER introduced self and role at [facility], pt voices understanding and consents to assessment. Pt is sitting up in chair in no distress on room air. Pt is A/Ox4 and answers all questions appropriately. Pt's daughter, Hermelinda, is at bedside during assessment. Care providers, pharmacy, and demographics verified. Presentation: Pt c/o not feeling well after dinner the night before, c/o chills, SOB, nausea, pulse ox 85% on RA Admitting dx: Sepsis, pna PCP: Shelli Specialists: Priya, eyes; Yolis, cardio; Joellen GI [facility] [place] Insurance: [facility] A/B, AAR Prescription Benefit: [employer] Living Will/HPOA: Pt/daughter believe that pt does have LW/HPOA but pt only has financial POA on file at [facility]. Pt/daughter aware. LNOK: Kwabena Adorno, ; Ashlie Israel, daughter; Beverly Adorno, daughter Living Arrangements: Pt lives with in 1 story home and states no concerns at home. Pt is independent with ADL's. Transportation: Pt states drives self or family drives and states no transportation concerns. DME/HHC: Pt has the following DME: cane, walker, director of religious life, and grab bars in shower. Pt states no need for any further DME. Pt states has had HHC in the past and has been to [place] in [place] and [facility] in past. HHC list provided. Pt/daughter state no concerns with pt going home at discharge. Pt is retired. Pt states does not smoke or drink ETOH. Pt states no further concerns/needs. CM to follow for home oxygen need and any further discharge planning/needs. Advised pt/daughter to ask for CM if any further questions/concerns/needs arise, voice understanding. Pt Goal: Home Plan[place] ARACELI GERBER
--- NOTE | 2021-05-02 12:55 | PN.HOSP_ITS ---
Subjective Subjective Doing well, not requiring any oxygen though she does still feel little bit weak. Is concerned about going home today Objective Data Objective Data Vital Signs: Vital Signs Temp Pulse Resp BP Pulse Ox 98.0 F 78 17 123/80 H 96 05/02/21 09:05 05/02/21 11:30 05/02/21 11:18 05/02/21 09:09 05/02/21 10:44 Oxygen Flow Rate (L/min) 2 Oxygen Delivery Method Room Air Weight: 140 lb 3.424 oz Body Mass Index (BMI) 22.6 Intake & Output: Intake and Output for Last 24 Hours 05/01/21 05/02/21 05/03/21 03:59 03:59 03:59 Intake Total 5605.00 / 5605.00 2902.08 / 2902.08 50 / 50 Output Total 900 / 900 1800 / 1800 Balance 4705.00 / 4705.00 1102.08 / 1102.08 50 / 50 Lab / Micro Data Result Diagrams: 05/02/21 05:55 05/02/21 05:55 Labs: Laboratory Results - last 24 hr 05/02/21 05:55: WBC 19.9 H, RBC 3.52 L, Hgb 10.6 L, Hct 33.0 L, MCV 93.8, MCH 30.1, MCHC 32.1, RDW Std Deviation 52.1 H, RDW Coeff of Saundra 15.0 H, Plt Count 114 L, MPV 11.5, Immature Gran % (Auto) 1.100 H, Neut % (Auto) 89.6 H, Lymph % (Auto) 5.9 L, [place] % (Auto) 3.2, Eos % (Auto) 0.0, Baso % (Auto) 0.2, Absolute Neuts (auto) 17.8 H, Absolute Lymphs (auto) 1.18, Nucleated RBC % 0 05/02/21 05:55: Sodium 141, Potassium 3.8, Chloride 112 H, Carbon Dioxide 23.0, Anion Gap 6, BUN 15, Creatinine 0.67, Estim Creat Clear Calc 42.00, Est GFR ( MDRD) Af Amer 109, Est GFR (MDRD) Non-Af 90, BUN/Creatinine Ratio 22.5 H, Glucose 139 H, Calcium 9.2 05/02/21 05:55: PT 39.3 H, INR 4.1 H* Micro: Microbiology 04/30/21 10:10 Blood Culture (Wb) - Left Wrist Blood Culture - Preliminary No growth in 48 hours. 04/30/21 09:30 Blood Culture (Wb) - Right Hand Blood Culture - Preliminary No growth in 48 hours. 04/30/21 17:45 Urine, Clean Catch Urine Culture - Final Mixed Gram Positive Organisms 04/30/21 17:45 Urine, Clean Catch Legionella Antigen - Final 04/30/21 17:45 Urine, Clean Catch Streptococcus pneumoniae Antigen (M - Final 04/30/21 13:45 Mucosa - Nasopharyngeal Respiratory Panel (PCR) - Final 04/30/21 09:50 Mucosa - Nasopharyngeal Influenza Types A,B Direct FA (TYREE) - Final 04/30/21 09:50 Nasal Secretion SARS-CoV-2 Antigen (Rapid) - Final Physical Exam Const alert, oriented x3 and no apparent distress General Appearance: cooperative HEENT normocephalic and moist oral mucous membranes Eyes PERRL, EOMs intact bilaterally and conjunctivae normal Neck supple and no JVD Resp normal respiratory effort, no retractions and no use of accessory muscles Auscultation: diminished lung sounds; Negative for crackles, rales, rhonchi or wheezes Cardio regular rate, regular rhythm, S1 normal heart sound, S2 normal heart sound and no murmurs GI soft to palpation, non-tender and non-distended; Negative for hepatosplenomegaly Extremity no clubbing, cyanosis or edema Skin no rashes or lesions noted Neuro no focal motor deficits and no sensory deficits noted Psych affect normal Appearance: appropriate Assessment & Plan Assessment/Plan (1) Community acquired pneumonia: (2) Severe sepsis: PLAN: 1. Septic shock (hypotension, lactic acidosis 4.3, total bilirubin 2.8, creatinine 1.25, leukocytosis with left shift) from left community- acquired pneumonia: Patient responded appropriately with IV fluid and blood pressure 114/88, 106/52. Continue IV fluid normal saline 100 mill per hour. Started on broad-spectrum antibiotic IV Zosyn and continue Zithromax for atypical coverage. Pneumonia work-up ordered. COVID-19 rapid antigen negative, PCR pending. MRSA nasal screen ordered. 05/01: WBC count decreasing. Blood pressure improved. Patient is positive 4 liter balance therefore IV fluid discontinued. Discussed with nursing staff. WBC count improving. Patient does not want to take Zithromax but agreed for doxycycline. Vancomycin discontinued as MRSA nasal screen negative seems community-acquired pneumonia and low risk for MRSA. Respiratory panel negative urinary antigens negative. Previous culture reported no history of MRSA. On IV Zosyn. 05/02/2021: With IV Zosyn and doxycycline. On discharge recommend Levaquin. She is concerned about azithromycin with QT prolongation and her A. fib. She feels little bit weak today and is uncomfortable going home. Physical therapy does not think that she will need placement. Unable to assess WBC response given the fact that she is on steroids 2. Asthma exacerbation mostly due to pneumonia: IV Solu-Medrol 20 mg lower dose every 8 hourly, DuoNeb every 4 hourly, incentive spirometry and PEP. 3. Chronic A. fib on warfarin: INR is therapeutic. Hold antihypertensive and metoprolol today and resume when clinical status/hypotension improves and stabilizes on baseline. 05/01: INR 3.4. Warfarin discontinued. Monitor INR daily. 05/02/2021: INR is 4.1 therefore continue to hold Coumadin 4. Irritable bowel syndrome, diverticulosis, history of a sphincterotomy/removal of CBD sludge by ERCP in April 2016: Intermittently patient gets constipation, soft bowel/loose bowel movement. Monitor clinically. 5. Other comorbidities include chronic GERD/gastritis, hypothyroidism: Home medication reconciliation DVT: Supratherapeutic INR Charges/Coding Visit Charges Inpatient E&M: 37276 [facility] Hosp L2
[2021-05-02] MEDS: 0.9% Saline Lock 10 ML Syringe IV (13:42)
[2021-05-02] MEDS: Loperamide 2 MG Capsule PO (22:16)
[2021-05-03] VITALS (9 sets, daily range): BP systolic 133–166; BP diastolic 61–98; PULSE 62–82; RESP 18–20; TEMP 36.2–36.6; O2SAT 93–97
[2021-05-03] MEDS: Levothyroxine 50 MCG Tablet PO (05:44)
[2021-05-03 06:44] LABS: Absolute Lymphocyte Count 1.22 X10^3/uL (0.83-4.51); Absolute Neutrophil Count 12.4 X10^3/uL (2.0-7.7); Basophil# 0.01 X10^3/uL; Basophil% 0.1 % (0-1); Hemoglobin 11.1 g/dL (12.0-15.0); Lymphocyte # 1.22 X10^3/ul (0.83-4.51); Lymphocyte % 8.6 % (19-41); Mean Corp Hgb Conc 32.6 g/dL (32-36); Mean Corpuscular Hgb 29.9 pg (27.0-32.0); Mean Corpuscular Volume 91.6 fL (81-99); Mean Platelet Vol. 11.1 fl (6.2-12.0); Monocyte# 0.56 X10^3/uL; Monocyte% 3.9 % (0-10); NRBC Flagged by Analyzer 0 % (0-5); Neutrophil # 12.35 X10^3/uL (2.7-7.7); Neutrophil % 86.7 % (47-70); Platelet Count 142 K/mm3 (150-450); RBC Distribution Width CV 14.9 % (11.6-14.6); RBC Distribution Width SD 50.4 fl (35.1-43.9); Red Blood Count 3.71 M/mm3 (4.2-5.4); White Blood Count 14.2 K/mm3 (4.4-11.0)
[2021-05-03 06:46] LABS: International Normalized Ratio 2.8
[2021-05-03 07:02] LABS: Anion Gap 8 (5-15); BUN 17 mg/dL (7-18); BUN/Creat Ratio 24.1 RATIO (10-20); Chloride 110 mmol/L (98-107); EST Glomerular Filtration Rate 85 mL/min (>60); Est Glom Filt Rate - Afr Amer 103 mL/min (>60); Glucose 142 mg/dL (74-106); Potassium 3.8 mmol/L (3.5-5.1); Sodium Level 143 mmol/L (136-145)
[2021-05-03] MEDS: Ipratropium/Albuterol Sulfate 3 ML AMPUL.NEB INHALATION ×2 (07:35→11:05)
[2021-05-03] MEDS: Doxycycline 100 MG CAPSULE PO (09:43)
[2021-05-03] MEDS: Metoprolol Tartrate 25 MG Tablet PO (09:43)
[2021-05-03] MEDS: Sertraline 100 MG Tablet PO (09:43)
[2021-05-03] MEDS: Digoxin 125 MCG Tablet PO (09:43)
[2021-05-03] MEDS: Pantoprazole Sodium 40 MG Tablet PO (09:43)
--- NOTE | 2021-05-03 10:28 | PCM.DC ---
Discharge Instructions Diet Discharge Diet: Low fat / Low cholesterol Activity Discharge Activity: Return to Normal Activity Dressing / Incision Call your doctor if you observe: Fever of 101 or Higher, Shortness of breath, Dizziness, Fainting spells, Swelling in the ankles, Chest pain and Increased palpitations (irregular heartbeat) Follow Up Care Test Results: Test results from this visit will be discussed in further detail at your follow-up appointment, if applicable. Discharge Plan Admission Admit Date/Time: 04/30/21 11:35 Attending Provider: Myles Reddy Primary Care Provider: Kwabena Marques Instructions Additional Instructions / Restrictions: Levaquin can interact with your Coumadin therefore follow-up with your PCP to obtain an INR prior to restarting your Coumadin. Discharge Orders/Prescriptions Prescriptions: New levofloxacin 750 mg tablet 750 mg PO Q48H Qty: 3 RF: 0 Continued digoxin 0.125 MG/2.5 ML solution 0.125 mg PO DAILY RF: 0 levothyroxine 50 MCG tablet 75 mcg PO DAILY RF: 0 cholestyramine (with sugar) 378 GM powder 4 g PO DAILY 30 Days RF: 0 sertraline 100 MG tablet 100 mg PO DAILY Qty: 30 RF: 0 alprazolam 0.5 MG tablet 0.25 mg PO QHS RF: 0 dicyclomine 20 mg tablet 20 mg PO BID RF: 0 Flovent HFA 220 mcg/actuation HFA aerosol inhaler 2 puff INHALATION BID RF: 0 metoprolol tartrate 25 mg tablet 25 mg PO BID RF: 0 rabeprazole 20 mg tablet,delayed release (DR/EC) 20 mg PO DAILY RF: 0 nitrofurantoin monohyd/m-cryst 100 mg capsule 100 mg PO Q12H RF: 0 Held warfarin [Jantoven] 2 MG tablet 2.5 mg PO DAILY RF: 0 Hold Instructions: Resume on 05/09/21. Referrals / Follow Up: Kwabena Marques MD [Primary Care Provider] - Within 1 Week Disposition Disposition (needs filled in before D/C Order can be placed): Home, Self Care
--- NOTE | 2021-05-03 10:34 | PCM.DC.SUM ---
Providers Date of Admission: 04/30/21 Primary Care Physician: Dr. Kwabena Marques MD Reason For Visit: SEPSIS Diagnosis Discharge Diagnosis (1) Community acquired pneumonia: Status: Acute Code(s): J18.9 - Pneumonia, unspecified organism (2) Severe sepsis: Status: Acute Code(s): A41.9 - Sepsis, unspecified organism; R65.20 - Severe sepsis without septic shock Medications at Discharge Home Medications digoxin 0.125 mg PO DAILY 04/10/16 levothyroxine 75 mcg PO DAILY 04/10/16 cholestyramine (with sugar) 4 g PO DAILY 30 Days powder 04/14/16 sertraline 100 mg PO DAILY #30 tablet 05/02/16 alprazolam 0.25 mg PO QHS 04/07/17 warfarin [Jantoven] 2.5 mg PO DAILY 04/07/17 Flovent HFA 2 puff INHALATION BID 04/30/21 dicyclomine 20 mg PO BID 04/30/21 metoprolol tartrate 25 mg PO BID 04/30/21 nitrofurantoin monohyd/m-cryst 100 mg PO Q12H 04/30/21 rabeprazole 20 mg PO DAILY 04/30/21 levofloxacin 750 mg PO Q48H #3 tab 05/03/21 Hospital Course Operations None Procedures None Summary of Care Provided Minutes Spent on Discharge: 45 Hospital Course: Per HPI: ION MUNIZ, is a 80 F with multiple medical problems as listed below was brought in by EMS for shortness of breath, shallow and slow breathing, mild cough low-grade fever and hypoxia. Patient has been feeling weak and tired for last 1 week but yesterday she developed chills, cough, dry heaving, body aches and shortness of breath. She was found hypoxic pulse ox 85% on room air, not on oxygen at baseline. Patient has history of asthma but does not use his rescue inhaler, in fact she does not have and does not require it. She uses maintenance inhaler Asmanex. She had Covid vaccine but did not had booster yet. In ED, she was found hypotensive blood pressure 83/58, baseline systolic 110 during her last PCP office visit in February 2021. T-max 99 Fahrenheit. Her blood pressure responded with IV fluid, 110/88. Lactic acid elevated, 4.3. Leukocytosis with left shift, immature granulocytes. INR therapeutic. Magnesium 1.8. Chest x-ray shows interstitial opacity over left midlung. Patient is started on ceftriaxone and further admitted azithromycin Hospital Course: 1. Septic shock (hypotension, lactic acidosis 4.3, total bilirubin 2.8, creatinine 1.25, leukocytosis with left shift) from left community-acquired pneumonia: Patient responded appropriately with IV fluid and blood pressure 114/88, 106/52. Continue IV fluid normal saline 100 mill per hour. Started on broad-spectrum antibiotic IV Zosyn and continue Zithromax for atypical coverage. Pneumonia work-up ordered. COVID-19 rapid antigen negative, PCR pending. MRSA nasal screen ordered. 05/01: WBC count decreasing. Blood pressure improved. Patient is positive 4 liter balance therefore IV fluid discontinued. Discussed with nursing staff. WBC count improving. Patient does not want to take Zithromax but agreed for doxycycline. Vancomycin discontinued as MRSA nasal screen negative seems community-acquired pneumonia and low risk for MRSA. Respiratory panel negative urinary antigens negative. Previous culture reported no history of MRSA. On IV Zosyn. 05/02/2021: With IV Zosyn and doxycycline. On discharge recommend Levaquin. She is concerned about azithromycin with QT prolongation and her A. fib. She feels little bit weak today and is uncomfortable going home. Physical therapy does not think that she will need placement. Unable to assess WBC response given the fact that she is on steroids 05/03/2021: She is feeling much better today and would like to go home. Given her creatinine clearance and the fact that she does not want to be on azithromycin, will place her on Levaquin 750 to 48 hours to complete 6 more days on discharge. I do recommend she follow-up with her PCP in 3 to 5 days for evaluation and adjustment of her medications. I also explained to her that Levaquin and Coumadin do interact and her INR today is less than 3 however I do recommend that she hold her Coumadin until she obtain an outpatient INR for evaluation and then her PCP can help monitor her Coumadin and make adjustments as necessary as an outpatient. I did discuss with her the plan for discharge today and she expressed understanding the risk benefits of going home and would like to go home today. 2. Asthma exacerbation mostly due to pneumonia: IV Solu-Medrol 20 mg lower dose every 8 hourly, DuoNeb every 4 hourly, incentive spirometry and PEP. 05/03/2021: This does appear to have resolved, therefore we will hold off on prednisone on discharge however if she does develop wheezing at home her PCP can prescribe her prednisone 3. Chronic A. fib on warfarin: INR is therapeutic. Hold antihypertensive and metoprolol today and resume when clinical status/hypotension improves and stabilizes on baseline. 05/01: INR 3.4. Warfarin discontinued. Monitor INR daily. 05/02/2021: INR is 4.1 therefore continue to hold Coumadin 05/03/2021: INR is less than 3 hold Coumadin and have outpatient follow-up as described above 4. Irritable bowel syndrome, diverticulosis, history of a sphincterotomy/removal of CBD sludge by ERCP in April 2016: Intermittently patient gets constipation, soft bowel/loose bowel movement. Monitor clinically. 5. Other comorbidities include chronic GERD/gastritis, hypothyroidism: Home medication reconciliation Physical Exam Const alert, oriented x3 and no apparent distress General Appearance: cooperative HEENT normocephalic and moist oral mucous membranes Eyes PERRL, EOMs intact bilaterally and conjunctivae normal Neck supple and no JVD Resp normal respiratory effort, no retractions and no use of accessory muscles Auscultation: diminished lung sounds; Negative for crackles, rales, rhonchi or wheezes Cardio regular rate, regular rhythm, S1 normal heart sound, S2 normal heart sound and no murmurs GI soft to palpation, non-tender and non-distended; Negative for hepatosplenomegaly Extremity no clubbing, cyanosis or edema Skin no rashes or lesions noted Neuro no focal motor deficits and no sensory deficits noted Psych affect normal Appearance: appropriate Weight / BMI Weight Weight: 140 lb 3.424 oz Body Mass Index (BMI) 22.6 ABG / Lab / Microbiology Data Result Diagrams: 05/03/21 06:00 05/03/21 06:00 Laboratory: Laboratory Results - last 24 hr 05/03/21 06:00: WBC 14.2 H, RBC 3.71 L, Hgb 11.1 L, Hct 34.0 L, MCV 91.6, MCH 29.9, MCHC 32.6, RDW Std Deviation 50.4 H, RDW Coeff of Saundra 14.9 H, Plt Count 142 L, MPV 11.1, Immature Gran % (Auto) 0.700, Neut % (Auto) 86.7 H, Lymph % (Auto) 8.6 L, [place] % (Auto) 3.9, Eos % (Auto) 0.0, Baso % (Auto) 0.1, Absolute Neuts (auto) 12.4 H, Absolute Lymphs (auto) 1.22, Nucleated RBC % 0 05/03/21 06:00: Sodium 143, Potassium 3.8, Chloride 110 H, Carbon Dioxide 25.0, Anion Gap 8, BUN 17, Creatinine 0.70, Estim Creat Clear Calc 42.00, Est GFR (MDRD) Af Amer 103, Est GFR (MDRD) Non-Af 85, BUN/Creatinine Ratio 24.1 H, Glucose 142 H, Calcium 9.0 05/03/21 06:00: PT 29.0 H, INR 2.8 Microbiology: Microbiology 04/30/21 10:10 Blood Culture (Wb) - Left Wrist Blood Culture - Preliminary No growth in 48 hours. 04/30/21 09:30 Blood Culture (Wb) - Right Hand Blood Culture - Preliminary No growth in 48 hours. 04/30/21 17:45 Urine, Clean Catch Urine Culture - Final Mixed Gram Positive Organisms 04/30/21 17:45 Urine, Clean Catch Legionella Antigen - Final 04/30/21 17:45 Urine, Clean Catch Streptococcus pneumoniae Antigen (M - Final 04/30/21 13:45 Mucosa - Nasopharyngeal Respiratory Panel (PCR) - Final 04/30/21 09:50 Mucosa - Nasopharyngeal Influenza Types A,B Direct FA (TYREE) - Final 04/30/21 09:50 Nasal Secretion SARS-CoV-2 Antigen (Rapid) - Final D/C Instructions Discharge Diet: Low fat / Low cholesterol Call your doctor if you observe: Fever of 101 or Higher, Shortness of breath, Dizziness, Fainting spells, Swelling in the ankles, Chest pain and Increased palpitations (irregular heartbeat) Meaningful Use Info Meaningful Use Diagnoses (Choose all that apply): None applicable Discharge Plan Admission Admit Date/Time: 04/30/21 11:35 Attending Provider: Myles Reddy Primary Care Provider: Kwabena Marques Instructions Additional Instructions / Restrictions: Levaquin can interact with your Coumadin therefore follow-up with your PCP to obtain an INR prior to restarting your Coumadin. Discharge Orders/Prescriptions Prescriptions: New levofloxacin 750 mg tablet 750 mg PO Q48H Qty: 3 RF: 0 Continued digoxin 0.125 MG/2.5 ML solution 0.125 mg PO DAILY RF: 0 levothyroxine 50 MCG tablet 75 mcg PO DAILY RF: 0 cholestyramine (with sugar) 378 GM powder 4 g PO DAILY 30 Days RF: 0 sertraline 100 MG tablet 100 mg PO DAILY Qty: 30 RF: 0 alprazolam 0.5 MG tablet 0.25 mg PO QHS RF: 0 dicyclomine 20 mg tablet 20 mg PO BID RF: 0 Flovent HFA 220 mcg/actuation HFA aerosol inhaler 2 puff INHALATION BID RF: 0 metoprolol tartrate 25 mg tablet 25 mg PO BID RF: 0 rabeprazole 20 mg tablet,delayed release (DR/EC) 20 mg PO DAILY RF: 0 nitrofurantoin monohyd/m-cryst 100 mg capsule 100 mg PO Q12H RF: 0 Held warfarin [Jantoven] 2 MG tablet 2.5 mg PO DAILY RF: 0 Hold Instructions: Resume on 05/09/21. Referrals / Follow Up: Kwabena Marques MD [Primary Care Provider] - Within 1 Week Disposition Disposition (needs filled in before D/C Order can be placed): Home, Self Care Charges/Coding Visit Charges Inpatient E&M: 69286 Disch Hosp
--- NOTE | 2021-05-03 11:02 | CASEMGMT ---
Addendum entered by Jagruti Harkins 05/03/21 11:23: Per Harsh CHALRES, pt does not qualify for home oxygen at discharge. Ernesto CHARLES CM Original Note: Pt declines need for any further therapy at discharge. Pt states has family that can assist, if needed. CM following for ambulatory pulse ox. Ernesto CHARLES CM
== END 2021-05-03 12:39 | disposition home or self-care (01) | DRG 871 ==
LOC: ED 09:59 → PCU 11:54
PROVIDERS: Admitting Provider Internal Medicine; Emergency Provider Emergency Medicine; PCP Family Medicine; Visit Provider Family Medicine
DX: A41.9 Sepsis, unspecified organism (principal); J18.9 Pneumonia, unspecified organism; R65.21 Severe sepsis with septic shock; I48.20 Chronic atrial fibrillation, unspecified; E87.2 Acidosis; J45.21 Mild intermittent asthma with (acute) exacerbation; E03.9 Hypothyroidism, unspecified; K58.9 Irritable bowel syndrome, unspecified; K21.9 Gastro-esophageal reflux disease without esophagitis; Z66 Do not resuscitate; K57.90 Diverticulosis of intestine, part unspecified, without perforation or abscess without bleeding; K29.70 Gastritis, unspecified, without bleeding; Z87.891 Personal history of nicotine dependence; Z79.01 Long term (current) use of anticoagulants; Z88.5 Allergy status to narcotic agent; Z88.6 Allergy status to analgesic agent; Z91.041 Radiographic dye allergy status
CPT/HCPCS: 36415; 71045; 80048; 80053; 81001; 82550; 83605; 83735; 84100; 85025; 85610; 85730; 87040; 87086; 87088; 87426; 87449; 87633; 87635; 87641; 87804; 92610; 93005; 94640; 94667; 94668; 97110; 97162; 97166; 97530; 97535; 97802; 99285; J7030; J7040; J7050; U0005; A4216; J2405; U0003

== ENCOUNTER 2023-06-29 19:45 | Inpatient (IN) | payer MEDICARE, SELFPAY ==
[2023-06-29 20:43] VITALS: BP 101/58; PULSE 101; RESP 16; TEMP 36.8; O2SAT 95; BMI 18.7
[2023-06-30] MEDS: Petrolatum,White 3.75GM OPTH.TUBE 1 APPLIC EACH EYE (01:31)
[2023-06-30 01:34] VITALS: BP 113/50; PULSE 99
[2023-06-30] MEDS: Metoprolol Tartrate 25 MG Tablet GT ×3 (01:34→22:50)
[2023-06-30] MEDS: MELATONIN 3 MG TABLET GT ×2 (01:35→22:53)
[2023-06-30] MEDS: traMADol 50 MG Tablet GT ×2 (01:47→22:52)
[2023-06-30] MEDS: Jevity 1.5 1,000 ML 55 ML GT ×2 (01:48→23:03)
[2023-06-30 02:15] VITALS: BP 113/50; PULSE 99
[2023-06-30 06:00] VITALS: BMI 18.7
[2023-06-30] MEDS: Levothyroxine 50 MCG Tablet GT (06:09)
[2023-06-30 07:27] LABS: Absolute Lymphocyte Count 2.75 X10^3/uL (0.83-4.51); Basophil# 0.07 X10^3/uL; Basophil% 0.8 % (0-1); Eosinophils% 3.3 % (0-5); Hematocrit 31.9 % (37-47); Hemoglobin 9.9 g/dL (12.0-15.0); Lymphocyte # 2.75 X10^3/ul (0.83-4.51); Mean Corpuscular Hgb 29.6 pg (27.0-32.0); Mean Corpuscular Volume 95.2 fL (81-99); Mean Platelet Vol. 10.5 fl (6.2-12.0); Monocyte# 1.02 X10^3/uL; Monocyte% 11.1 % (0-10); NRBC Flagged by Analyzer 0 % (0-5); Neutrophil # 4.99 X10^3/uL (2.7-7.7); Neutrophil % 54.5 % (47-70); Platelet Count 204 K/mm3 (150-450); RBC Distribution Width SD 51.2 fl (35.1-43.9); Red Blood Count 3.35 M/mm3 (4.2-5.4); White Blood Count 9.2 K/mm3 (4.4-11.0)
[2023-06-30 07:58] LABS: Anion Gap 1 (5-15); BUN 24 mg/dL (7-18); BUN/Creat Ratio 37.3 RATIO (10-20); Calcium,Total 9.1 mg/dL (8.5-10.1); Chloride 105 mmol/L (98-107); Creatinine, Serum 0.64 mg/dL (0.55-1.02); EST Glomerular Filtration Rate 94 mL/min (>60); Est Glom Filt Rate - Afr Amer 113 mL/min (>60); Estimated Creatinine Clearance 42.88 ml/min; Glucose 128 mg/dL (74-106); Sodium Level 138 mmol/L (136-145)
[2023-06-30 08:01] LABS: Prothrombin Time (Protime)PT. 22.7 SECONDS (11.7-14.9)
--- NOTE | 2023-06-30 09:06 | HP.PCM_ITS ---
HPI - General General Date of Admission: 06/29/23 Date of Service: 07/02/23 Chief Complaint: Here for rehabilitation. HPI Narrative ION MUNIZ, is a 83 Female who presents with followin06/04/2023 Admit to [facility]. 82 year old female who presents with history significant for rheumatic heart disease, severe mitral stenosis, moderate tricuspid regurgitation, and aortic insufficiency, for elective heart cath as part of scheduled MV/LASHAUN+MAZE/AMY surgery on 06/07/[address] Taylor. PMH also significant for chronic afib (On coumadin), HTN, Hypothyroidism, cataracts, GERD, scarlet fever, anxiety/depression. List of Surgeries: 06/07/2023 Cryomaze, Mitral Valve Replacement with 33mm Epic Plus, Tricuspid Valve repair with 28mm MC3 Band, Removal of mass Aortic Valve. 07/09/2023 Chest exploration/washout. Findings: Diffuse coagulopathy noticed and no specific source found for bleeding. Repair sutures with autologous pericardium were reinforced on the aortic suture line and right atrial suture line, prior right superior wire site with some venous bleeding that was repaired, right lung with small area bleeding was repaired. 06/22/2023 PEG tube placed by IR. Active problems: 1. 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 2. Delirium - since resolved, A&O x 3, Psych recommended hold home Xanax, schedule Melatonin at HS, PRN Zyprexa discontinued per TCU request, ordered qhs for insomnia. 3. Vision changes - Postop, first mentioned 06/16/2023, Likely 2/2 delirium, now resolved. Ophthalmology evaluated patient 06/20/2023 per patient/family, unremarkable, improvement in symptoms, no interventions. 4. History of afib (preop on digoxin, BB, coumadin)s/p MAZE, currently in rate controlled afib, continue BB, on Bival (HIT+) and coumadin. 5. HTN (preop on Metoprolol) - SBP stable, continue management BB, PO Lasix, and Cardura ( started for urinary retention as Flomax cannot be crushed). Adjuste as needed. 6. Pleural efusions - Chest ultrasound with bilateral pleural effusions, both sides marked on 06/13/2023, Underwent right thoracentesis 600cc 06/14/2023. Procedure Team had assessed left at the sane time with not enough fluid to drain. CXR showing small left trace effusion, On PO lasix. 7. Dysphagia/aspiration risk/mild malnutrition: OCCUP THERAPIST consulted, failed BS eval on 06/11/2023, 06/13/2023, Failed MBS on 06/18/2023, No plans for repeat MBS for at least 2 weeks. PEG tube placement 06/22/2023 with IR, TF at goal. 8. Acute blood loss anemia - POD [address], received multiple blood products with eventual chest exploration/washout, H&H stable, follow trend. 9. 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 Right IJ fibrin sheath noted - no need to repeat imaging per Dr. Taylor. [place] Bival/coumadin bridge (platlets recovered), started bridge 06/21/2023, INR therapeutic, Bival turned off and rechecked, INR 3.0, dose coumadin 3mg tonight. 10. Hypothyroidism - Recent TSH 0.485, continue home Synthroid. 11. Urinary retention - inability to void post smith removal 06/02/2023, Smith replaced, Smith discontinued 06/15/2023, voiding. On Cardura. 12. Leukocytosis - WBC normalized, Afebrile. UA from 06/18/2023 with 3+ leuks, negative nitrites. ? UTI, urine culture ordered but not sent prior to starting Macrobid. Completed 5 day course of Macrobid. 13. History of IBS (Preop on Bentyl), Has issues at home with diarrhea, no acute concerns, hold home medication for now. 14. History of depression, continue home Zoloft. 15. Blood culture 06/04/2023 + MRSE in 1 of 2 sets. No symptoms of infection, repeat culture (1 set obtained 06/05/2023 negative ), Per ID likely contaminant, continued on Vancomycin postop until intra-op studies reviewed, negative. ID recommended monitoring off antibiotics. 06/29/2023 Admit to TCU with debility, here for rehabilitation, strengthening, prior to discharge home with . [facility] Medical History (Updated 06/30/23 @ 10:[address] Javad Mccarthy MD) Acute encephalopathy Anxiety Aortic insufficiency Aortic valve mass Cataract Debility Depression Dysphagia GERD (gastroesophageal reflux disease) HIT (heparin-induced thrombocytopenia) Mitral valve regurgitation Tricuspid valve regurgitation Urinary retention Home Medications digoxin 50 mcg/mL (0.05 mg/mL) oral solution 0.125 mg PO DAILY BP 04/10/16 [History Last Taken 04/26/16 10:20] levothyroxine 50 mcg tablet 75 mcg PO DAILY thyroid 04/10/16 [History Last Taken 04/26/16 05:30] cholestyramine (with sugar) 4 gram oral powder 4 g PO DAILY 30 days 04/14/16 [Rx Last Taken Unknown] sertraline 100 mg tablet 100 mg PO DAILY ##30 05/02/16 [Rx Last Taken Unknown] alprazolam 0.5 mg tablet 0.25 mg PO QHS sleep 04/07/17 [History Last Taken Unknown] warfarin 2 mg tablet (Jantoven) 2.5 mg PO DAILY blood thinner 04/07/17 [History Last Taken Unknown] dicyclomine 20 mg tablet 20 mg PO BID IBS 04/30/21 [History Last Taken Unknown] fluticasone propionate 220 mcg/actuation HFA aerosol inhaler (Flovent HFA) 2 puff inhalation BID inhaler 04/30/21 [History Last Taken Unknown] metoprolol tartrate 25 mg tablet 25 mg PO BID bp 04/30/21 [History Last Taken Unknown] nitrofurantoin monohydrate/macrocrystals 100 mg capsule 100 mg PO Q12H uti 04/30/21 [History Last Taken Unknown] rabeprazole 20 mg tablet,delayed release 20 mg PO DAILY reflux 04/30/21 [History Last Taken Unknown] levofloxacin 750 mg tablet 750 mg PO Q48H #3 tabs 05/03/21 [Rx Last Taken Un known] Allergy/AdvReac Type Severity Reaction Status Date / Time morphine Allergy Intermediate Other Verified 06/30/23 03:58 aspirin Allergy Unknown Rash, hives Verified 06/30/23 03:58 Iodinated Contrast Media Allergy Hives Verified 04/30/21 09:44 [DYEE] Tetanus Vaccines and Toxoid Allergy Rash Verified 06/30/23 03:58 azithromycin AdvReac Severe Other Verified 07/01/23 05:34 [From Zithromax Z-Landen] codeine AdvReac Severe Itching Verified 06/30/23 03:58 heparin AdvReac Severe Bleeding Verified 06/30/23 03:58 cefaclor [From Ceclor] AdvReac Vomiting Verified 06/30/23 03:58 metronidazole [From Flagyl] AdvReac Nausea/Vom/ Verified 06/30/23 03:58 Diarrhea Sulfa (Sulfonamide AdvReac double Verified 07/01/23 05:34 Antibiotics) vision Family History (Updated 06/30/23 @ 10:[address] Javad Mccarthy MD) Mother Diabetes Father Prostate cancer Sister CVA (cerebral vascular accident) Sister COPD (chronic obstructive pulmonary disease) Surgical History (Updated 06/30/23 @ 10:[address] Javad Mccarthy MD) History of bladder suspension procedure History of cholecystectomy History of maze procedure History of mitral valve replacement History of tricuspid valve replacement S/P percutaneous endoscopic gastrostomy (PEG) tube placement Social History (Updated 06/30/23 @ 10:[address] Javad Mccarthy MD) household members: spouse Smoking Status: Former smoker alcohol intake: never substance use type: does not use ROS Constitutional Constitutional: Reports weakness; Denies chills, fever(s) or weight gain ENT HEENT: Denies headache(s), nasal congestion or nasal discharge Cardiovascular Cardiovascular: Denies chest pain or palpitations Respiratory/Chest Respiratory/Chest: Denies cough, excessive phlegm production or shortness of breath with exertion Gastrointestinal Gastrointestinal: Denies abdominal pain, nausea or vomiting Genitourinary Genitourinary: Denies dysuria Musculoskeletal Musculoskeletal: Denies joint pain or joint swelling Integumentary Integumentary: Denies rash or wounds Neurologic Neurologic: Denies focal weakness, numbness or tingling Psychiatric Psychiatric: Denies anxiety, auditory hallucinations, depression, homicidal ideation or suicidal ideation Vital Signs Vital Signs Vital Signs: 06/29/23 20:43 06/30/23 01:34 06/30/23 02:15 Temperature 98.2 F Temperature Source Temporal Pulse Rate 101 H 99 99 Pulse Rhythm Pulse Strength Respiratory Rate 16 Respiratory Effort Respiratory Depth Respiratory Pattern Blood Pressure 101/58 L 113/50 L 113/50 L Blood Pressure Mean 72 71 Blood Pressure Source Monitor Monitor Blood Pressure Position Supine Semi-Fowlers Blood Pressure Location Left Arm Left Arm Pulse Ox 95 Oxygen Delivery Method Room Air 06/29/23 20:43 Temperature Temperature Source Pulse Rate 101 H Pulse Rhythm Irregular Pulse Strength Normal (2+) Respiratory Rate 16 Respiratory Effort Normal Non-Labored Respiratory Depth Normal Respiratory Pattern Normal Blood Pressure Blood Pressure Mean Blood Pressure Source Blood Pressure Position Blood Pressure Location Pulse Ox 95 Oxygen Delivery Method Room Air Weight Weight: 50.984 kg Body Mass Index (BMI) 18.7 Physical Exam Const alert General Appearance: cooperative HEENT normocephalic Eyes PERRL and EOMs intact bilaterally Neck supple, no JVD and no carotid bruits Resp normal respiratory effort, normal air movement and clear to auscultation bilaterally Cardio regular rate and regular rhythm GI normal to inspection, nondistended, normoactive bowel sounds, non-tender and non-distended GI Narrative: Peg. Extremity normal capillary refill General Extremity: Negative for edema Skin no rashes or lesions noted General Skin Exam: no breakdown Psych affect normal Appearance: appropriate Results Lab / Micro Data 06/30/23 07:14 06/30/23 07:14 Labs: Laboratory Results - last 24 hr 06/30/23 07:14: WBC 9.2, RBC 3.35 L, Hgb 9.9 L, Hct 31.9 L, MCV 95.2, MCH 29.6, MCHC 31.0 L, RDW Std Deviation 51.2 H, RDW Coeff of Saundra 15.0 H, Plt Count 204, MPV 10.5, Immature Gran % (Auto) 0.300, Neut % (Auto) 54.5, Lymph % (Auto) 30.0, [place] % (Auto) 11.1 H, Eos % (Auto) 3.3, Baso % (Auto) 0.8, Absolute Neuts (auto) 5.0, Absolute Lymphs (auto) 2.75, Nucleated RBC % 0, Sodium 138, Potassium 4.0, Chloride 105, Carbon Dioxide 32.0, Anion Gap 1 L, BUN 24 H, Creatinine 0.64, Estim Creat Clear Calc 42.88, Est GFR (MDRD) Af Amer 113, Est GFR (MDRD) Non-Af 94, BUN/Creatinine Ratio 37.3 H, Glucose 128 H, Calcium 9.1 06/30/23 07:16: PT 22.7 H, INR 2.0 Assessment & Plan Assessment/Plan (1) Debility: (2) Mitral valve regurgitation: (3) Tricuspid valve regurgitation: (4) Aortic insufficiency: (5) Aortic valve mass: (6) Afib: (7) HIT (heparin-induced thrombocytopenia): (8) Acute encephalopathy: (9) Urinary retention: (10) Asthma: (11) IBS (irritable bowel syndrome): (12) GERD (gastroesophageal reflux disease): (13) Hypothyroidism: (14) Depression: (15) Anxiety: (16) Cataract: (17) Dysphagia: (18) S/P percutaneous endoscopic gastrostomy (PEG) tube placement: PLAN: Plan 83 year old female with below past medical history hospitalized for MVR, TVR, A ortic mass removal, MAZE, complicated by encephalopathy, coagulopathy, urinary retention, dysphagia requiring PEG, admitted to TCU with debility, here for rehabilitation, strengthening, prior to discharge home with . * Debility - PT/OT. * Dysphagia - ST. * Pain - Tylenol 325mg q4 prn, Tramadol 50mg q6 prn, Lidoderm patch 1 patch td daily. * Bowel - Miralax 17gm bid prn, Senna/colace 1 tablet bid prn, Ducolax 10mg pr prn, MOM 15ml q6 prn. * Adult immunization - Administer pneumonia vaccine, covid vaccine, flu vaccine as appropriate. * DVT prophylaxis - on coumadin. * Sore throat - Cepacol 1 lozenge q2h prn. * Indigestion - TUMS 1250mg tid prn. * IBS - Cholestyramine 4gm daily, Bentyl 20mg daily, Loperamide 2mg q2 prn. * Urinary retention - Cardura 4mg daily. * Asthma - Flovent 110mcg 2 puff daily. * Edema - Furosemide 20mg daily. * Cough - Robitussin 10ml q4h prn. * s/p peg/nutrition - Jevity 1.5 55cc/hour. * GI prophylaxis - Lactobacillus 1 tablet daily. * GERD - Lansoprazole 30mg daily * Hypothyroidism - Levothyroxine 50mcg daily. * Insomnia - Melatonin 3mg qhs. * Skin irritation - Calmoseptine topical bid, Zinic oxide topical daily prn. * Atrial fibrillation s/p MAZE - Metoprolol 25mg bid, coumadin 3mg daily, monitor INR. * Dry eyes - Lacrilube ou qhs. * Hypokalemia - KCL 10meq daily. * Depression - Sertraline 100mg daily, stable chronic manager long term care use, GDR not recommended.
[2023-06-30] MEDS: Potassium Chloride Oral Soln 20 MEQ/15 ML UDC 10 MEQ GT (10:28)
[2023-06-30] MEDS: Dicyclomine 10 MG Capsule 20 MG GT (10:29)
[2023-06-30] MEDS: Furosemide 20 MG Tablet GT (10:29)
[2023-06-30] MEDS: Doxazosin 4 MG Tablet GT (10:29)
[2023-06-30] MEDS: Sertraline 100 MG Tablet GT (10:30)
[2023-06-30] MEDS: Lidocaine 5% Patch 1 PATCH TOPICAL (10:30)
--- NOTE | 2023-06-30 10:30 | NURSING ---
Residual checked prior to administering medication 0ml noted.
[2023-06-30] MEDS: Lansoprazole 15 MG Capsule.DR 30 MG GT (10:33)
[2023-06-30 10:38] VITALS: BP 107/55; PULSE 95
[2023-06-30] MEDS: Tuberculin,Purif.prot.deriv. 50 TU/ML Vial 0.100000000000000006 ML ID (10:38)
[2023-06-30] MEDS: Fluticasone Propionate 110 MCG AER.W.ADAP 2 PUFF INHALATION (12:37)
[2023-06-30] MEDS: Menthol/Lanolin/Calamine/Znox 113 GM Tube 1 APPLIC TOPICAL (12:46)
[2023-06-30] MEDS: Cholestyramine/Sucrose 4 GM/PACKET GT (12:46)
--- NOTE | 2023-06-30 13:47 | NURSING ---
Pt came with order for Protonix, and multivitiamins which are not able to be crushed. Dr. Mccarthy updated Order changed to 30mg of Lansoprazole and discontinue multivitamins. Order read back.
[2023-06-30 15:30] VITALS: BP 104/47; PULSE 85; RESP 16; TEMP 36.1; O2SAT 99
[2023-06-30 18:51] LABS: International Normalized Ratio 1.9; Prothrombin Time (Protime)PT. 22.1 SECONDS (11.7-14.9)
--- NOTE | 2023-06-30 19:07 | NURSING ---
Residual checked prior to administering medication 0ml noted.
[2023-06-30 22:50] VITALS: BP 113/58; PULSE 92
[2023-06-30] MEDS: Acetaminophen 325 MG Tablet PO (22:51)
[2023-07-01] MEDS: Levothyroxine 50 MCG Tablet GT (06:20)
[2023-07-01] MEDS: Dicyclomine 10 MG Capsule 20 MG GT (10:23)
[2023-07-01] MEDS: Sertraline 100 MG Tablet GT (10:23)
[2023-07-01] MEDS: Potassium Chloride Oral Soln 20 MEQ/15 ML UDC 10 MEQ GT (10:23)
[2023-07-01 10:24] VITALS: BP 100/58; PULSE 92
[2023-07-01] MEDS: Metoprolol Tartrate 25 MG Tablet GT ×2 (10:24→21:20)
[2023-07-01] MEDS: Doxazosin 4 MG Tablet GT (10:24)
[2023-07-01] MEDS: Lansoprazole 15 MG Capsule.DR 30 MG GT (10:24)
[2023-07-01] MEDS: Furosemide 20 MG Tablet GT (10:24)
[2023-07-01] MEDS: Fluticasone Propionate 110 MCG AER.W.ADAP 2 PUFF INHALATION (10:25)
[2023-07-01] MEDS: Menthol/Lanolin/Calamine/Znox 113 GM Tube 1 APPLIC TOPICAL ×2 (10:25→21:50)
[2023-07-01] MEDS: Lidocaine 5% Patch 1 PATCH TOPICAL (10:27)
[2023-07-01 10:46] LABS: International Normalized Ratio 1.9; Prothrombin Time (Protime)PT. 21.7 SECONDS (11.7-14.9)
--- NOTE | 2023-07-01 11:54 | NURSING ---
Pt voiced that she was started on Keflex at [facility] for UTI. Pt denies having any signs or symptoms of UTI. Dr Mccarthy updated and would like to continue to monitor for Signs and symptoms of UTI at this time. Pt also requestion to have Balance eye drops at bed side. Per Dr. Mccarthy okay to keep eye drops at bedside.
[2023-07-01] MEDS: Cholestyramine/Sucrose 4 GM/PACKET GT (12:26)
[2023-07-01 15:33] VITALS: BP 95/42; PULSE 86; RESP 16; TEMP 36.6; O2SAT 97
[2023-07-01] MEDS: traMADol 50 MG Tablet GT (15:59)
[2023-07-01] MEDS: Warfarin 3 MG, Warfarin 0.5 MG 3.5 MG GT (15:59)
[2023-07-01 21:20] VITALS: BP 101/63; PULSE 91
[2023-07-01] MEDS: Loperamide 2 MG Capsule GT (21:21)
[2023-07-01] MEDS: MELATONIN 3 MG TABLET GT (21:21)
[2023-07-01] MEDS: Acetaminophen 325 MG Tablet PO (21:41)
[2023-07-01] MEDS: Jevity 1.5 1,000 ML 55 ML GT (21:47)
[2023-07-02 06:00] VITALS: BMI 18.7
[2023-07-02 06:21] LABS: International Normalized Ratio 2.1; Prothrombin Time (Protime)PT. 23.5 SECONDS (11.7-14.9)
[2023-07-02] MEDS: Levothyroxine 50 MCG Tablet GT (06:36)
--- NOTE | 2023-07-02 07:42 | NURSING ---
Late entry for 07/01/23: Spoke w/ Dr. Mccarthy via phone to update pt would like to have Miralax and Senna-S changed to PRN d/t loose stools as a result of tube feeds and hx of IBS-D. New orders received and read back for Miralax 17 gm po BID PRN and Senna-S po BID PRN- as per JUL.
[2023-07-02 08:45] LABS: Mucous, Urine 0 SEEN /hpf (<or=2+)
[2023-07-02 08:58] LABS: Color, Urine Yellow (Yellow); Glucose, Dipstick Normal (Normal); Ketone-Dipstick 5 mg/dl (Negative); Leukocyte Esterase-Dipstick 100 /ul (Negative); Nitrite-Dipstick Positive (Negative); Occult Blood-Urine 10 /ul (Negative); Protein-Dipstick 15 mg/dl (Negative); Urine Bilirubin Dipstick Negative (Negative); Urine Clarity Cloudy (Clear); Urine Urobilinogen 1 mg/dl (Normal)
[2023-07-02 09:06] LABS: Bacteria 4+ /hpf (None Seen); White Blood Cells 5-10 SEEN /hpf (0-5)
[2023-07-02 09:12] LABS: Red Blood Cells-Urine 0-5 SEEN /hpf (0-5); Squamous Epithelial Cells - UA 0-5 SEEN /hpf (5-10)
[2023-07-02 11:30] VITALS: BP 95/59; PULSE 89; RESP 16; TEMP 36.6; O2SAT 99
--- NOTE | 2023-07-02 11:48 | NURSING ---
Offered covid vaccine, VIS provided. Patient refuses at this time.
[2023-07-02] MEDS: Potassium Chloride Oral Soln 20 MEQ/15 ML UDC 10 MEQ GT (11:51)
[2023-07-02] MEDS: Lansoprazole 15 MG Capsule.DR 30 MG GT (11:53)
[2023-07-02] MEDS: Doxazosin 4 MG Tablet GT (11:53)
[2023-07-02] MEDS: Lidocaine 5% Patch 1 PATCH TOPICAL (11:53)
[2023-07-02] MEDS: Fluticasone Propionate 110 MCG AER.W.ADAP 2 PUFF INHALATION (11:54)
[2023-07-02] MEDS: Furosemide 20 MG Tablet GT (11:54)
[2023-07-02] MEDS: Sertraline 100 MG Tablet GT (11:54)
[2023-07-02] MEDS: Dicyclomine 10 MG Capsule 20 MG GT (11:54)
[2023-07-02 11:55] VITALS: PULSE 89
[2023-07-02] MEDS: Metoprolol Tartrate 25 MG Tablet GT ×2 (11:55→20:48)
[2023-07-02] MEDS: Menthol/Lanolin/Calamine/Znox 113 GM Tube 1 APPLIC TOPICAL ×2 (11:55→20:46)
[2023-07-02] MEDS: Cholestyramine/Sucrose 4 GM/PACKET GT (11:56)
--- NOTE | 2023-07-02 11:57 | NURSING ---
host coordinator Note; Activity Asset: Arias Jacobo is independent in her choice of daily activities. She enjoys talking w/other, family, friends and welcomes visits from the surgical assistant certified and therapy dog when available. She will read, watch tv and rest when not in therapy. Staff will remind her of weekly activities and respect her right to say no.
--- NOTE | 2023-07-02 13:26 | ST.MBS ---
Modified Barium Swallow Patient Information Study Date: 07/02/23 Study Time: 12:30 Direct Billable Minutes: 140 Total Minutes procedure & reportin Diagnosis: Oropharyngeal dysphagia, R13.12 Referring Physician: Javad Mccarthy Chi Reason for Referral: Objectively assess swallow function, assess risk for aspiration, and determine recommendations for least restrictive diet textures and compensatory strategies to improve safety of swallow. Medical History: Odalis Adorno is an 83 year old female hospitalized for MVR, TVR, Aortic mass removal, MAZE, complicated by encephalopathy, coagulopathy, urinary retention, dysphagia requiring PEG, admitted to TCU with debility, here for rehabilitation, strengthening, prior to discharge home with . Patient participated in MBSS at [facility] on 06/18/23 w/ recommendations for NPO/ alternative means of primary hydration and nutrition. Results of MBSS are as follows re: sev pharyngeal dysphagia resulting in penetration before, during and after the swallow across all trialed consistencies and aspiration after the swallow of thin and mildly thick from contrast remaining in the laryngeal vestibule and/or pharyngeal residue. Mod-sev pharyngeal residue remained across thicker viscosities allowing for penetration to the vocal cords after the swallow. Pt. coughed spontaneously in response to aspiration. Could not clear residue despite cued secondary swallows and utilizing mildly thick wash. Participated in BSE on 06/30/23 w/ recommendations for implementation of FFWP w/ plan for repeat MBSS to assess swallow function to determine the least restrictive diet. List of Surgeries: 06/07/2023 Cryomaze, Mitral Valve Replacement with 33mm Epic Plus, Tricuspid Valve repair with 28mm MC3 Band, Removal of mass Aortic Valve. 07/09/2023 Chest exploration/washout. Findings: Diffuse coagulopathy noticed and no specific source found for bleeding. Repair sutures with autologous pericardium were reinforced on the aortic suture line and right atrial suture line, prior right superior wire site with some venous bleeding that was repaired, right lung with small area bleeding was repaired. 06/22/2023 PEG tube placed by IR. Current Diet Ordered: NPO Dentition: Natural Teeth Mental Status: WNL Respiratory Status: Oxygenating on Room Air Penetration-Aspiration Scale Penetration-Aspiration Scale: OBJECTIVE ASSESSMENT OF SWALLOW FUNCTION (QUANTITATIVE ? PER TRIAL): PENETRATION / ASPIRATION SCALE (ZAIDI): 1 = does not enter airway 2 = enters airway/above vocal folds/ejected 3 = enters airway/above vocal folds/not ejected 4 = enters airway/contacts vocal folds/ejected 5 = enters airway/contacts vocal folds/not ejected 6 = enters airway/below vocal folds/ejected 7 = enters airway/below vocal folds/not ejected despite effort 8 = enters airway/below vocal folds/no effort VIDEOFLOROSCOPIC SCALE SCORE (ZAIDI): Grade I = aspiration of material that has penetrated into the laryngeal vestibule, intact cough reflex Grade II = aspiration < 10 % of the bolus, intact cough reflex Grade III = aspiration of < 10 % of the bolus, reduced cough reflex or aspiration of > 10 % of the bolus, intact cough reflex Grade IV = aspiration of > 10 % of the bolus, reduced cough reflex Penetration-Aspiration Scale Score Thin Liquid via teaspoon: Result: 2= enter airway/above vocal folds/ejected Comment: w/ reflexive cough Thin Liquid via teaspoon Trial 2: Result: 2= enter airway/above vocal folds/ejected Thin Liquid via teaspoon Trial 3: Result: 1= does not enter airway Thin Liquid via teaspoon Trial 4: Result: 1= does not enter airway Thin Liquid via small single sip: cup: Result: 1= does not enter airway Thin Liquid via small single sip: cup Trial 2: Result: 2= enter airway/above vocal folds/ejected Thin Liquid via small single sip: cup Trial 3: Result: 1= does not enter airway Thin Liquid via small single sip: cup Trial 4: Result: 5= enters airways/contacts vocal folds/not ejected Pudding: Result: 1= does not enter airway Cookie: Result: 1= does not enter airway Oral Phase Labial Seal: No Labial Escape Tongue Control During Bolus Hold: Posterior escape of less than half of bolus Bolus Preparation/Mastication: Slow prolonged chewing/mashing with complete recollection Bolus Transport/Lingual Motion: Slowed tongue motion Oral Residue: Trace residue lining oral structures Pharyngeal Phase Initiation of Pharyngeal Swallow: Bolus head at posterior laryngeal surgace of epiglottis Soft Palate Elevation: No bolus between soft palate and pharyngeal wall Laryngeal Elevation: Partial superior movement thyroid cart/partial apprx aryt-epig petiole Anterior Hyoid Excursion: Partial anterior movement Epiglottic Movement: Partial inversion Laryngeal Vestibule Closure at Height of Swallow: Incomplete; narrow column of air/contrast in laryngeal vestibule Pharyngeal Stripping Wave: Present - diminished Pharyngoesophageal Segment Opening: Complete distension and complete duration; no obstruction of flow Tongue Base Retraction: Wide column of contrast between tongue base & post. pharyngeal wall Pharyngeal Residue: Collection of residue within or on pharyngeal structures Treatment Strategies Effects of treatment strategies attemped:: effortful swallow = effective chin tuck to clear pharyngeal residue = not effective, increases risk of penetration/aspiration of residues liquid wash to clear pharyngeal residue = effective Diagnosis/Impression Diagnosis: Moderate oropharyngeal dysphagia R13.12 Impression: Oral phase primarily marked by... - slowed, but functional mastication w/ slowed lingual motion w/ premature pharyngeal entry prior to inition of swallow. Pharyngeal phase primarily marked by... - delayed pharyngeal onset timing resulting in suboptimal bolus placement upon swallow onset. - reduced airway closure d/t decreased laryngeal elevation and reduced anterior hyoid excursion. - trace penetration observed w/ thin liquids vis tsp however independently cleared w/ use of double swallow and/or reflexive cough. - trace penetration to the vocal cords that resulted in reflexive cough, otherwise no aspiration observed during the study w/ thin liquids, purees or regular textures. - poor pharyngeal motility attributed to wide tongue base and reduced posterior pharyngeal stripping wave action resulting in pharyngeal residues within the vallecula and pyriforms after the swallow. Pt. is at risk of post prandial penetration/aspiration of residues. Chin tuck was not effective in clearing pharyngeal residues as residues seen spilling into the airway. Most effective to clear pharyngeal residue was effortful swallow and liquid wash. Increased pharyngeal residues w/ cookie trial than puree. Recommendations Diet: NPO Comment: Pt. is to continue w/ PEG for primary nutrition and hydration. Pt. will trial purees; thin liquids w/ aspiration precautions w/ SECOND OFFICER ONLY at bedside to assess appropriateness for PO diet advancement. Compensatory Strategies: Small Sips (w/ effortful swallow and intermittent cough and re-swallow), Multiple Swallows, Alternate bites/solids and sips/liquids, Sitting upright and Remain sitting upright for 30 minutes after PO intake Supervision: 1:1 Close Supervision Recommend Repeat Modified Barium Swallow: Yes Comment: Repeat MBSS in 2-4 weeks to assess improvement in swallow function Need for Skilled Speech Therapy Services: Yes Comment: Pt. requires intensive skilled speech therapy intervention targeting continued diet texture management, training and implementation of recommended compensatory swallowing strategies and training and implementation of oropharyngeal strengthening exercises to facilitate improved swallow function. Education Completed: 1. Described result of evaluation. and 2. Pt understands evaluation & agrees with goals and treatment plan. Status Active ST Patient: Active Contact Information [facility] Speech Therapy:: Connie Calero M.A., SECOND OFFICER Speech-Language Pathologist [facility] [address] [place] [address] [email or web address] [phone]
--- NOTE | 2023-07-02 13:46 | PHA.CONS_ITS ---
Documented by User: Annia Conner 07/02/23 14:17 TCU RX Drug Regimen Review Subjective/Objective Subjective/Objective: Subjective: TCU Admission. 83 YOF hospitalized for MVR, TVR, Aortic mass removal, MAZE, complicated by encephalopathy, coagulopathy, urinary retention, d ysphagia requiring PEG. Admitted to TCU with debility for strengthening and rehabilitation. Objective: Allergies morphine Allergy (Intermediate, Verified 06/30/23 03:58) Other HAD TOPICAL REACTION WHEN IV MORPHINE GIVEN - SITE SWELLING AND REDNESS aspirin Allergy (Unknown, Verified 06/30/23 03:58) Rash, hives itching Iodinated Contrast Media [DYEE] Allergy (Verified 04/30/21 09:44) Hives Tetanus Vaccines and Toxoid Allergy (Verified 06/30/23 03:58) Rash azithromycin [From Zithromax Z-Landen] Adverse Reaction (Severe, Verified 07/01/23 05:34) Other uncontrolled AFib codeine Adverse Reaction (Severe, Verified 06/30/23 03:58) Itching heparin Adverse Reaction (Severe, Verified 06/30/23 03:58) Bleeding Heparin Induced Thrombocytopenia cefaclor [From Ceclor] Adverse Reaction (Verified 06/30/23 03:58) Vomiting metronidazole [From Flagyl] Adverse Reaction (Verified 06/30/23 03:58) Nausea/Vom/Diarrhea Sulfa (Sulfonamide Antibiotics) Adverse Reaction (Verified 07/01/23 05:34) double vision Current Medications Generic Name Dose Route Start Last Admin Trade Name Freq PRN Reason Stop Dose Admin Acetaminophen 325 mg 06/29/23 21:51 07/01/23 21:41 Acetaminophen 325 Mg Tablet PO 325 mg Q4H PRN PRN Administration Pain Score 1-10 Calamine/Phenol 1 applic 06/30/23 10:00 07/02/23 11:55 Menthol/Lanolin/Calamine/Znox 113 Gm Tube TOPICAL 1 applic BID MIKE Administration Protocol Calcium Carbonate 1,250 mg 06/30/23 06:00 Calcium Carbonate Liquid 1,250 Mg/5 Ml Po.Syringe GT TID PRN PRN INDIGESTION Cholestyramine Resin 4 gm 06/30/23 10:00 07/02/23 11:56 Cholestyramine/Sucrose 4 Gm/Packet GT 4 gm DAILY MIEK Administration Dicyclomine HCl 20 mg 06/30/23 10:00 07/02/23 11:54 Dicyclomine 10 Mg Capsule GT 20 mg DAILY MIKE Administration Doxazosin Mesylate 4 mg 06/30/23 10:00 07/02/23 11:53 Doxazosin 4 Mg Tablet GT 4 mg DAILY MIKE Administration Protocol Fluticasone Propionate 2 puff 06/30/23 10:00 07/02/23 11:54 Fluticasone Propionate 110 Mcg Aer.W.Adap INHALATION 2 puff DAILY MIKE Administration Furosemide 20 mg 06/30/23 10:00 07/02/23 11:54 Furosemide 20 Mg Tablet GT 20 mg DAILY MIKE Administration Protocol Guaifenesin 10 ml 06/30/23 04:11 Guaifenesin 10 Ml Udc (200mg/10ml) GT Q4H PRN PRN COUGH Enteral Nutritional Formula 1,000 mls @ 50 mls/hr 06/30/23 02:00 07/01/23 21:47 Jevity 1.5 GT 55 mls/hr .Q20H MIKE Administration Lactobacillus Acidophilus 1 tablet 06/30/23 10:00 07/02/23 11:54 Lactobacillus Acidophilus GT 1 tablet DAILY MIKE Administration Lansoprazole 30 mg 06/30/23 10:00 07/02/23 11:53 Lansoprazole 15 Mg Capsule.Dr GT 30 mg DAILY MIKE Administration Levothyroxine Sodium 50 mcg 06/30/23 06:00 07/02/23 06:36 Levothyroxine 50 Mcg Tablet GT 50 mcg DAILY@0600 MIKE Administration Lidocaine 1 patch 06/30/23 10:00 07/02/23 11:53 Lidocaine 5% Patch TOPICAL 1 patch DAILY MIKE Administration Protocol Loperamide HCl 2 mg 06/29/23 22:30 07/01/23 21:21 Loperamide 2 Mg Capsule GT 2 mg Q2H PRN PRN Administration Diarrhea Magnesium Hydroxide 15 ml 06/30/23 06:00 Magnesium Hydroxide 30 Ml Udc GT Q6H PRN Constipation Melatonin 3 mg 06/29/23 23:30 07/01/23 21:21 Melatonin 3 Mg Tablet GT 3 mg QHS MIKE Administration Metoprolol Tartrate 25 mg 06/29/23 23:30 07/02/23 11:55 Metoprolol Tartrate 25 Mg Tablet GT 25 mg BID MIKE Administration Protocol Multi-Ingredient Cream 1 applic 06/29/23 23:30 07/01/23 21:16 Petrolatum,White 3.75gm Opth.Tube EACH EYE Not Given QHS [facility] Multi-Ingredient Ointment 1 applic 06/29/23 22:25 Zinc Oxide 30gm Tube TOPICAL PRN PRN PERIANAL EXCORIATION Protocol Polyethylene Glycol 17 gm 07/01/23 22:00 Polyethylene Glycol 3350 17 Gm Packet PO BID PRN Constipation Potassium Chloride 10 meq 06/30/23 10:00 07/02/23 11:51 Potassium Chloride Oral Soln 20 Meq/15 Ml Udc GT 10 meq DAILY MIKE Administration Senna/Docusate Sodium 1 tablet 07/01/23 22:00 Senna/Docusate Sodium 1 Tablet PO BID PRN Constipation Sertraline HCl 100 mg 06/30/23 10:00 07/02/23 11:54 Sertraline 100 Mg Tablet GT 100 mg DAILY MIKE Administration Throat Lozenges 1 lozenge 06/29/23 21:51 Benzocaine/Menthol 1 Lozenge MUCOUS MEM Q2H PRN PRN SORE THROAT Tramadol HCl 50 mg 06/29/23 22:22 07/01/23 15:59 Tramadol 50 Mg Tablet GT 07/05/23 00:00 50 mg Q6H PRN PRN Administration Pain Score 6-10 Tuberculin PPD 0.1 ml 07/07/23 10:00 Tuberculin,Purif.Prot.Deriv. 50 Tu/Ml Vial ID 07/07/23 10:01 X1 ONE Warfarin Sodium 3 mg/ Warfarin 3.5 mg 07/01/23 17:00 07/01/23 15:59 Sodium 0.5 mg GT 3.5 mg DINNER MIKE Administration Problem List (Updated 06/30/23 @ 10:[address] 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) Aortic valve mass (Acute) Aortic insufficiency (Acute) Tricuspid valve regurgitation (Acute) Mitral valve regurgitation (Acute) Debility (Acute) IBS (irritable bowel syndrome) (Chronic) Hypothyroidism (Chronic) Asthma (Chronic) Afib (Chronic) Vital Signs Temp Pulse Resp BP Pulse Ox O2 Del Method 97.9 F 89 16 101/63 97 Room Air 07/01/23 15:33 07/02/23 11:55 07/01/23 15:33 07/01/23 21:20 07/01/23 15:33 07/01/23 16:17 Oxygen Delivery Method Room Air Weight: 51.075 kg Body Mass Index (BMI) 18.7 Sodium 138 mmol/L (136-145) 06/30/23 07:14 Potassium 4.0 mmol/L (3.5-5.1) 06/30/23 07:14 Chloride 105 mmol/L (98-107) 06/30/23 07:14 Carbon Dioxide 32.0 mmol/L (21.0-32.0) 06/30/23 07:14 Anion Gap 1 (5-15) L 06/30/23 07:14 BUN 24 mg/dL (7-18) H 06/30/23 07:14 Creatinine 0.64 mg/dL (0.55-1.02) 06/30/23 07:14 Est GFR (MDRD) Af Amer 113 mL/min (>60) 06/30/23 07:14 Est GFR (MDRD) Non-Af 94 mL/min (>60) 06/30/23 07:14 BUN/Creatinine Ratio 37.3 RATIO (10-20) H 06/30/23 07:14 Glucose 128 mg/dL (74-106) H 06/30/23 07:14 Assessment/Plan: 1. Pain: acetaminophen 325mg GT Q4H PRN pain 1-10, lidocaine 5% patch 1 patch topical daily, tramadol 50mg GT Q6H PRN pain 6-10. Resident has had 2 doses of acetaminophen (pain 4 and 6 in the back) and 3 doses of tramadol (pain 6 and 8 in the back/chest). Please continue to monitor for increased pain, PRN usage, constipation, renal function and respiratory depression. 2. Bowel: Miralax 17gm GT BID PRN constipation, senna/docusate 1T GT BID PRN constipation, MOM 15mL GT Q6H PRN constipation. Please continue to monitor for constipation, diarrhea and PRN usage. Per nursing note from today, resident with loose stools. 3. Atrial fibrillation s/p MAZE: metoprolol tartrate 25mg GT BID and warfarin 3.5mg GT dinner. Most recent INR therapeutic at 2.1 on 07/02/23. Monitor for signs of irregular heartbeat. Monitor heart rate (recent range = 86-101 beats/min), BP (last 101/63), s/s of bleeding/excessive bruising. Monitor Hgb- last 9.9 g/dl on 06/30/23. 4. GERD: lansoprazole 30mg GT daily.?Continue to monitor for S/S of acid reflux, diarrhea (BEERs medication), constipation. 5. Asthma: fluticasone 110mcg 2 puff inhalation daily. Please rinse mouth with water and spit following administration to prevent thrush.?Please ensure proper usage of inhaler to avoid thrush and improve efficacy of medication. 6. Edema: Furosemide 20mg GT daily. Monitor for water retention, weight gain, extremity swelling, renal function. Most recent electrolyte panel 06/30/23 (Na, K WNL. SCr 0.64) Continue to repeat labs to monitor electrolytes, current K supplementation.?? 7. Hypokalemia: potassium chloride 10meq GT daily.?Continue to monitor potassium level and need for replacement, most recent K: 4.0 on 06/30/23.?? 8. Hypothyroidism: levothyroxine 50mcg GT daily. Monitor for s/s of hypo/hyperthyroidism.??No recent documented TSH/T3/T4 thyroid labs (2015), please consider ordering TSH and T4 levels if clinically appropriate. Thanks. 9. Urinary retention: doxazosin 4mg GT daily. Monitor for dizziness, s/s hypotension, ability to void, urinary frequency. 10. IBS: cholestyramine 4gm GT daily, dicyclomine 20mg GT daily, loperamide 2mg GT Q2H PRN diarrhea. Documented dose of PRN medication given 07/01/23. Monitor for loose stool, diarrhea, constipation, GI discomfort, upset stomach, stomach pain, dehydration, anticholinergic effects, and prn medication use.?? 11. Insomnia: melatonin 3mg GT QHS. Monitor for difficulty falling asleep, nighttime awakenings, daytime drowsiness.? 12. Cough/sore throat: guaifenesin 10mL GT Q4H PRN cough,?Cepacol 1 lozenge Q2H PRN sore throat. No documented administrations of PRN medication. Monitor for improvement/worsening of cough, sore throat.? 13. GI prophylaxis and Indigestion: lactobacillus 1 table GT daily, calcium carbonate 1250mg GT TID PRN indigestion. No documented use of PRN medication. Monitor for s/s of indigestion, upset stomach, diarrhea, calcium (last 9.1mg/dL). 14. Dry eyes: Lacrilube OU QHS. Monitor for s/s of dry eye. 15. Skin irritation: calmoseptine topical bid, Zinc oxide topical daily prn for perianal excoriation.?Monitor for resolution of skin irritation. No documented PRN med use.? Assessment/Plan for indications treated with psychotropic medications: 1. Depression: sertraline 100mg GT daily. See provider note regarding stable chronic long-term therapy GDR not recommended. Continue to monitor for depression, for SI (black box warning), for s/s of serotonin syndrome, f alls/fractures (BEERs medication), sodium (last 138mmol/l) and for diarrhea. Medical chart and medication regimen reviewed. The following medication irregularities or issues were identified: 1. Levothyroxine 50mcg GT daily.??No recent documented TSH/T3/T4 thyroid labs (2015), please consider ordering TSH and T4 levels if clinically appropriate. Thanks. Date Date of Note:: 07/02/23 Documented by User: Dr. Javad Mccarthy MD 07/02/23 17:38 TCU RX Drug Regimen Review Provider Comments Provider responsibility Provider Comments to Recommendations by Pharmacy: Agree
[2023-07-02] MEDS: CALCIUM CARBONATE 1250 MG/5 ML GT (14:15)
[2023-07-02] MEDS: Warfarin 3 MG, Warfarin 0.5 MG 3.5 MG GT (16:49)
[2023-07-02] MEDS: Jevity 1.5. 1,000 ML Bottle 300 ML GT ×2 (16:50→20:47)
--- NOTE | 2023-07-02 16:50 | CASEMGMT ---
Social Work Met with patient to complete initial assessment. Introduced self and role. Verified/updated contacts. Patient confirmed code status as full code. SW requested pt to have family provide copies of advanced directives. Educated to [facility] insurance with NRD 07/03 and continued stay is not guaranteed with each review. Broached topic of pt discharging home with peg tube and whom can assist. Pt stated her children outside of work hours, but she has a friend that is a retired RN, she could ask for assistance. Pt was unaware she would not have the peg removed prior to DC. Pt exhibited high anxiety by continuously asking questions, such as peg tube needs, medical alert, BUSINESS CONTINUITY MANAGEMENT DIRECTOR, [facility]. SW provided ongoing reassurance that closer to DC, this worker and staff will coordinate therapy training and peg tube training with family/friends and coordinate any needs at [facility]. Assured pt for this worker to focus on those needs and pt focus on rehab. SW offered for pt to write down questions when they come to mind to ask staff. Pt agreed. SW provided paper and pen. SW noted further explanation of needs, plan of care and insurance coverage will be shared at POC meeting Sunday. Pt expressed understanding. SW will continue to follow for DC planning and support. Laverne Cox, LAVERNE TOLBERTW
--- NOTE | 2023-07-02 17:42 | RAD_ITS ---
STUDY: X-RAY - ABDOMEN/PELVIS REASON FOR EXAM: Female, 83 years old. Nausea TECHNIQUE: KUB COMPARISON: None. FINDINGS: Nonvisualized visualized lung bases. PEG tube noted projecting over left upper quadrant There is an unremarkable bowel gas pattern. There is residual contrast seen within the right colon. There is no demonstrated free abdominal air. The visualized liver, spleen and kidneys are grossly normal in size and morphology. Gallbladder has been removed surgically. Lumbar spine demonstrates degenerative change. RAD/Abdomen Single View IMPRESSION: Nonspecific abdomen. Electronically Signed: Lam Newby MD at 21:12 EST ,
[2023-07-02] MEDS: Ondansetron 8 MG Tablet GT (17:59)
[2023-07-02 20:38] VITALS: BP 103/57; PULSE 105
[2023-07-02 20:48] VITALS: BP 103/57; PULSE 105
[2023-07-02] MEDS: MELATONIN 3 MG TABLET GT (20:48)
[2023-07-02] MEDS: Loperamide 2 MG Capsule GT (20:48)
--- NOTE | 2023-07-02 22:50 | NURSING ---
Patient tolerated 230ml of Jevity 1.5 bolus feed this HS. Stated she felt bloated and nauseas. This nurse asked if her PRN zofran helped with nausea earlier, and she stated a little bit. She denies PRN zofran at this time but understands it is available if she needs it. This nurse will continue to encourage nutritional intake and will consult dietary if intolerance continues. Call light is in reach, ice chips were given, and bed is in lowest position.
[2023-07-03] MEDS: Levothyroxine 50 MCG Tablet GT (05:26)
[2023-07-03 05:59] LABS: International Normalized Ratio 1.8; Prothrombin Time (Protime)PT. 21.5 SECONDS (11.7-14.9)
[2023-07-03 06:00] VITALS: BMI 19.1
[2023-07-03] MEDS: Jevity 1.5. 1,000 ML Bottle 300 ML GT (06:22)
[2023-07-03 06:30] LABS: T4 Free Direct 1.02 ng/dL (0.76-1.46)
[2023-07-03] MEDS: Ondansetron 8 MG Tablet GT (06:53)
[2023-07-03 08:09] VITALS: BP 106/48; PULSE 86; RESP 20; TEMP 36.7; O2SAT 93
[2023-07-03 08:16] VITALS: PULSE 86; RESP 20; O2SAT 93
[2023-07-03] MEDS: Amox/Clavulanate 500 MG Tablet GT ×2 (08:40→17:33)
[2023-07-03] MEDS: Dicyclomine 10 MG Capsule 20 MG GT (08:42)
[2023-07-03] MEDS: Menthol/Lanolin/Calamine/Znox 113 GM Tube 1 APPLIC TOPICAL ×2 (08:43→22:22)
[2023-07-03] MEDS: Doxazosin 4 MG Tablet GT (08:43)
[2023-07-03] MEDS: Fluticasone Propionate 110 MCG AER.W.ADAP 2 PUFF INHALATION (08:44)
[2023-07-03] MEDS: Potassium Chloride Oral Soln 20 MEQ/15 ML UDC 10 MEQ GT (08:45)
[2023-07-03] MEDS: Lansoprazole 15 MG Capsule.DR 30 MG GT (08:46)
[2023-07-03] MEDS: Furosemide 20 MG Tablet GT (08:47)
[2023-07-03] MEDS: Cholestyramine/Sucrose 4 GM/PACKET GT (08:49)
[2023-07-03] MEDS: Sertraline 100 MG Tablet GT (08:49)
[2023-07-03 09:08] VITALS: BP 106/48; PULSE 86
[2023-07-03] MEDS: Metoprolol Tartrate 25 MG Tablet GT ×2 (09:08→22:20)
[2023-07-03] MEDS: Lidocaine 5% Patch 1 PATCH TOPICAL (09:57)
[2023-07-03] MEDS: traMADol 50 MG Tablet GT (12:17)
[2023-07-03] MEDS: Warfarin 3 MG, Warfarin 0.5 MG 3.5 MG GT (17:33)
[2023-07-03] MEDS: Jevity 1.5. 1,000 ML Bottle 200 ML GT ×2 (17:34→22:20)
--- NOTE | 2023-07-03 19:20 | NURSING ---
PEG tube education done this shift, will need to continue.
[2023-07-03] MEDS: Petrolatum,White 3.75GM OPTH.TUBE 1 APPLIC EACH EYE (22:19)
[2023-07-03 22:20] VITALS: BP 114/48; PULSE 97
[2023-07-03] MEDS: MELATONIN 3 MG TABLET GT (22:20)
[2023-07-04 06:00] VITALS: BMI 18.8
[2023-07-04 06:19] LABS: International Normalized Ratio 2.1; Prothrombin Time (Protime)PT. 23.5 SECONDS (11.7-14.9)
[2023-07-04] MEDS: Jevity 1.5. 1,000 ML Bottle 200 ML GT ×4 (06:31→20:43)
[2023-07-04] MEDS: Levothyroxine 50 MCG Tablet GT (06:31)
[2023-07-04] MEDS: Amox/Clavulanate 500 MG Tablet GT ×2 (09:33→18:13)
[2023-07-04] MEDS: Dicyclomine 10 MG Capsule 20 MG GT (09:35)
[2023-07-04] MEDS: Menthol/Lanolin/Calamine/Znox 113 GM Tube 1 APPLIC TOPICAL ×2 (09:36→20:44)
[2023-07-04] MEDS: Fluticasone Propionate 110 MCG AER.W.ADAP 2 PUFF INHALATION (09:37)
[2023-07-04] MEDS: Doxazosin 4 MG Tablet GT (09:37)
[2023-07-04] MEDS: Potassium Chloride Oral Soln 20 MEQ/15 ML UDC 10 MEQ GT (09:38)
[2023-07-04] MEDS: Lansoprazole 15 MG Capsule.DR 30 MG GT (09:40)
[2023-07-04] MEDS: Furosemide 20 MG Tablet GT (09:40)
[2023-07-04] MEDS: Cholestyramine/Sucrose 4 GM/PACKET GT (09:48)
[2023-07-04] MEDS: Sertraline 100 MG Tablet GT (09:48)
[2023-07-04 09:49] VITALS: BP 106/46; PULSE 100
[2023-07-04] MEDS: Metoprolol Tartrate 25 MG Tablet GT ×2 (09:49→20:43)
--- NOTE | 2023-07-04 10:14 | CASEMGMT ---
Social Work IDT met with patient and dtr via conference call for care plan meeting. Discussed patient's progress in PT/OT/ST/SN. Educated to [facility] insurance with [employer]D 07/11 with [facility]C 07/13, continued stay is not guaranteed with each review. Pt has a new peg and now receiving bolus feedings with modified PO diet. SW requested family provide copies of advanced directives. SW provided requested resources for medical alert and nonskilled WORSHIP PASTOR. Pt's goal is to return home with but cannot assist. SW will continue to follow for DC planning. Laverne Cox, LAVERNE TOLBERTW
[2023-07-04 11:15] VITALS: BP 96/54; PULSE 97; RESP 20; TEMP 36; O2SAT 96
[2023-07-04] MEDS: Lidocaine 5% Patch 1 PATCH TOPICAL (11:45)
[2023-07-04] MEDS: Ensure Clear 120 ML Liquid PO (17:48)
[2023-07-04] MEDS: Warfarin 3 MG, Warfarin 0.5 MG 3.5 MG GT (18:13)
[2023-07-04 20:43] VITALS: BP 113/70; PULSE 105
[2023-07-04] MEDS: MELATONIN 3 MG TABLET GT (20:43)
[2023-07-04] MEDS: Ondansetron 8 MG Tablet GT (20:43)
[2023-07-04] MEDS: Loperamide 2 MG Capsule GT (20:46)
[2023-07-04 21:13] VITALS: BP 113/70; PULSE 105
[2023-07-05] MEDS: Levothyroxine 50 MCG Tablet GT (05:27)
[2023-07-05 06:00] VITALS: BMI 19.1
[2023-07-05 06:24] LABS: International Normalized Ratio 1.9; Prothrombin Time (Protime)PT. 22.1 SECONDS (11.7-14.9)
[2023-07-05] MEDS: Potassium Chloride Oral Soln 20 MEQ/15 ML UDC 10 MEQ GT (09:09)
[2023-07-05] MEDS: Lansoprazole 15 MG Capsule.DR 30 MG GT (09:09)
[2023-07-05] MEDS: Doxazosin 4 MG Tablet GT (09:09)
[2023-07-05] MEDS: Amox/Clavulanate 500 MG Tablet GT ×2 (09:09→18:15)
[2023-07-05] MEDS: Dicyclomine 10 MG Capsule 20 MG GT (09:09)
[2023-07-05 09:10] VITALS: BP 102/62; PULSE 106
[2023-07-05] MEDS: Sertraline 100 MG Tablet GT (09:10)
[2023-07-05] MEDS: Metoprolol Tartrate 25 MG Tablet GT ×2 (09:10→20:44)
[2023-07-05] MEDS: Furosemide 20 MG Tablet GT (09:10)
[2023-07-05] MEDS: Fluticasone Propionate 110 MCG AER.W.ADAP 2 PUFF INHALATION (09:10)
[2023-07-05] MEDS: Ondansetron 8 MG Tablet GT ×2 (09:10→20:42)
[2023-07-05] MEDS: Ensure Clear 120 ML Liquid PO ×3 (09:15→17:48)
[2023-07-05] MEDS: Loperamide 2 MG Capsule GT ×2 (09:28→18:14)
[2023-07-05] MEDS: Cholestyramine/Sucrose 4 GM/PACKET GT (11:36)
[2023-07-05] MEDS: Lidocaine 5% Patch 1 PATCH TOPICAL (11:36)
[2023-07-05 11:37] VITALS: BP 96/51; PULSE 66; RESP 16; TEMP 36.1; O2SAT 96
[2023-07-05] MEDS: Menthol/Lanolin/Calamine/Znox 113 GM Tube 1 APPLIC TOPICAL ×2 (11:37→20:45)
[2023-07-05] MEDS: Warfarin 3 MG, Warfarin 0.5 MG 3.5 MG GT (18:15)
[2023-07-05] MEDS: Acetaminophen 650 MG/20 ML UDC 325 MG GT (18:58)
[2023-07-05] MEDS: Jevity 1.5. 1,000 ML Bottle 200 ML GT (20:43)
[2023-07-05 20:44] VITALS: BP 104/60; PULSE 94
[2023-07-05] MEDS: MELATONIN 3 MG TABLET GT (20:44)
[2023-07-05 21:17] VITALS: BP 104/60; PULSE 94
[2023-07-06] MEDS: Levothyroxine 50 MCG Tablet GT (05:56)
[2023-07-06 06:00] VITALS: RESP 15; BMI 18.3
[2023-07-06] MEDS: Sertraline 100 MG Tablet GT (08:07)
[2023-07-06 08:08] VITALS: BP 147/57; PULSE 99
[2023-07-06] MEDS: Metoprolol Tartrate 25 MG Tablet GT ×2 (08:08→23:02)
[2023-07-06] MEDS: Cholestyramine/Sucrose 4 GM/PACKET GT (08:40)
[2023-07-06] MEDS: Amox/Clavulanate 500 MG Tablet GT ×2 (08:52→16:51)
[2023-07-06] MEDS: Dicyclomine 10 MG Capsule 20 MG GT (08:53)
[2023-07-06] MEDS: Doxazosin 4 MG Tablet GT (08:54)
[2023-07-06] MEDS: Lansoprazole 15 MG Capsule.DR 30 MG GT (08:55)
--- NOTE | 2023-07-06 09:12 | NURSING ---
Circuit Designer Note; MDS for 07/06/2023 Complete
[2023-07-06] MEDS: Lidocaine 5% Patch 1 PATCH TOPICAL (09:40)
[2023-07-06] MEDS: Potassium Chloride Oral Soln 20 MEQ/15 ML UDC 10 MEQ GT (09:41)
[2023-07-06] MEDS: Fluticasone Propionate 110 MCG AER.W.ADAP 2 PUFF INHALATION (09:42)
--- NOTE | 2023-07-06 10:27 | CASEMGMT ---
Social Work BIMS () and PHQ-2 () completed for MDS assessment. SW also educated pt to insurance approval with [employer]D 07/11, EDC 07/13. LAVERNE JonesW
[2023-07-06] MEDS: Ensure Clear 120 ML Liquid PO ×2 (10:52→12:27)
[2023-07-06] MEDS: Menthol/Lanolin/Calamine/Znox 113 GM Tube 1 APPLIC TOPICAL ×2 (10:53→23:15)
[2023-07-06] MEDS: Furosemide 20 MG Tablet GT (10:55)
[2023-07-06] MEDS: traMADol 50 MG Tablet GT ×2 (12:26→18:00)
[2023-07-06 16:00] VITALS: BP 106/58; PULSE 94; RESP 15; TEMP 36.6; O2SAT 100
[2023-07-06] MEDS: Warfarin 3 MG, Warfarin 0.5 MG 3.5 MG GT (16:54)
[2023-07-06 23:02] VITALS: BP 112/62; PULSE 105
[2023-07-06] MEDS: MELATONIN 3 MG TABLET GT (23:02)
[2023-07-06] MEDS: Jevity 1.5. 1,000 ML Bottle 200 ML GT (23:10)
[2023-07-06] MEDS: Loperamide 2 MG Capsule GT (23:11)
[2023-07-07] MEDS: Levothyroxine 50 MCG Tablet GT (05:45)
[2023-07-07 08:08] LABS: Absolute Lymphocyte Count 3.01 X10^3/uL (0.83-4.51); Absolute Neutrophil Count 4.6 X10^3/uL (2.0-7.7); Basophil# 0.05 X10^3/uL; Basophil% 0.6 % (0-1); Eosinophil# 0.23 X10^3/uL; Eosinophils% 2.6 % (0-5); Hematocrit 30.8 % (37-47); Hemoglobin 9.4 g/dL (12.0-15.0); Lymphocyte # 3.01 X10^3/ul (0.83-4.51); Lymphocyte % 34.6 % (19-41); Mean Corp Hgb Conc 30.5 g/dL (32-36); Mean Corpuscular Hgb 29.7 pg (27.0-32.0); Mean Corpuscular Volume 97.2 fL (81-99); Mean Platelet Vol. 10.1 fl (6.2-12.0); Monocyte# 0.75 X10^3/uL; Monocyte% 8.6 % (0-10); NRBC Flagged by Analyzer 0 % (0-5); Neutrophil # 4.61 X10^3/uL (2.7-7.7); Neutrophil % 53.1 % (47-70); Platelet Count 193 K/mm3 (150-450); RBC Distribution Width SD 56.8 fl (35.1-43.9); Red Blood Count 3.17 M/mm3 (4.2-5.4); White Blood Count 8.7 K/mm3 (4.4-11.0)
[2023-07-07 08:29] LABS: Anion Gap 4 (5-15); BUN 9 mg/dL (7-18); BUN/Creat Ratio 17.3 RATIO (10-20); Calcium,Total 9.3 mg/dL (8.5-10.1); Chloride 109 mmol/L (98-107); Creatinine, Serum 0.52 mg/dL (0.55-1.02); EST Glomerular Filtration Rate 119 mL/min (>60); Est Glom Filt Rate - Afr Amer 145 mL/min (>60); Estimated Creatinine Clearance 42.12 ml/min; Glucose 90 mg/dL (74-106); Potassium 4.1 mmol/L (3.5-5.1); Sodium Level 139 mmol/L (136-145)
[2023-07-07 08:55] VITALS: BP 112/53; PULSE 90; RESP 16; TEMP 36.2; O2SAT 99
[2023-07-07] MEDS: Ensure Clear 120 ML Liquid PO (09:00)
[2023-07-07] MEDS: Amox/Clavulanate 500 MG Tablet GT ×2 (09:00→17:42)
[2023-07-07] MEDS: Dicyclomine 10 MG Capsule 20 MG GT (09:01)
[2023-07-07] MEDS: Doxazosin 4 MG Tablet GT (09:01)
[2023-07-07] MEDS: Potassium Chloride Oral Soln 20 MEQ/15 ML UDC 10 MEQ GT (09:02)
[2023-07-07 09:03] VITALS: PULSE 90
[2023-07-07] MEDS: Furosemide 20 MG Tablet GT (09:03)
[2023-07-07] MEDS: Metoprolol Tartrate 25 MG Tablet GT ×2 (09:03→21:58)
[2023-07-07] MEDS: Lansoprazole 15 MG Capsule.DR 30 MG GT (09:03)
[2023-07-07] MEDS: Sertraline 100 MG Tablet GT (09:04)
[2023-07-07] MEDS: Lidocaine 5% Patch 1 PATCH TOPICAL (09:15)
[2023-07-07] MEDS: Menthol/Lanolin/Calamine/Znox 113 GM Tube 1 APPLIC TOPICAL ×2 (09:16→21:59)
[2023-07-07] MEDS: Tuberculin,Purif.prot.deriv. 50 TU/ML Vial 0.100000000000000006 ML ID (11:46)
[2023-07-07] MEDS: Fluticasone Propionate 110 MCG AER.W.ADAP 2 PUFF INHALATION (11:46)
[2023-07-07] MEDS: Cholestyramine/Sucrose 4 GM/PACKET GT (11:46)
[2023-07-07] MEDS: traMADol 50 MG Tablet GT ×2 (15:29→21:58)
[2023-07-07] MEDS: Warfarin 3 MG, Warfarin 0.5 MG 3.5 MG GT (17:42)
[2023-07-07] MEDS: Jevity 1.5. 1,000 ML Bottle 200 ML GT (21:57)
[2023-07-07 21:58] VITALS: BP 124/65; PULSE 84
[2023-07-07] MEDS: MELATONIN 3 MG TABLET GT (21:58)
[2023-07-07 22:00] VITALS: PULSE 84; RESP 18; O2SAT 98
[2023-07-08] MEDS: Levothyroxine 50 MCG Tablet GT (05:30)
[2023-07-08 06:00] VITALS: BMI 18.6
[2023-07-08 06:03] LABS: Hematocrit 30.3 % (37-47); Hemoglobin 9.3 g/dL (12.0-15.0)
[2023-07-08] MEDS: Cholestyramine/Sucrose 4 GM/PACKET GT (07:35)
[2023-07-08 08:52] VITALS: BP 116/61; PULSE 98; RESP 17; TEMP 36.2; O2SAT 97
[2023-07-08] MEDS: Ensure Clear 120 ML Liquid PO (08:56)
[2023-07-08] MEDS: Amox/Clavulanate 500 MG Tablet GT ×2 (08:56→18:23)
[2023-07-08] MEDS: Dicyclomine 10 MG Capsule 20 MG GT (08:57)
[2023-07-08] MEDS: Doxazosin 4 MG Tablet GT (08:58)
[2023-07-08] MEDS: Fluticasone Propionate 110 MCG AER.W.ADAP 2 PUFF INHALATION (08:58)
[2023-07-08] MEDS: Menthol/Lanolin/Calamine/Znox 113 GM Tube 1 APPLIC TOPICAL ×2 (08:58→22:00)
[2023-07-08] MEDS: Potassium Chloride Oral Soln 20 MEQ/15 ML UDC 10 MEQ GT (08:59)
[2023-07-08] MEDS: Lansoprazole 15 MG Capsule.DR 30 MG GT (08:59)
[2023-07-08] MEDS: Furosemide 20 MG Tablet GT (08:59)
[2023-07-08 09:00] VITALS: PULSE 98
[2023-07-08] MEDS: Lidocaine 5% Patch 1 PATCH TOPICAL (09:00)
[2023-07-08] MEDS: Metoprolol Tartrate 25 MG Tablet GT ×2 (09:00→21:48)
[2023-07-08] MEDS: Sertraline 100 MG Tablet GT (09:00)
[2023-07-08] MEDS: Warfarin 3 MG, Warfarin 0.5 MG 3.5 MG GT (18:23)
[2023-07-08] MEDS: Jevity 1.5. 1,000 ML Bottle 200 ML GT (21:46)
[2023-07-08] MEDS: traMADol 50 MG Tablet GT (21:47)
[2023-07-08 21:48] VITALS: BP 127/58; PULSE 74
[2023-07-08] MEDS: MELATONIN 3 MG TABLET GT (21:48)
[2023-07-09] MEDS: Levothyroxine 50 MCG Tablet GT (05:55)
[2023-07-09 06:01] LABS: Hematocrit 28.2 % (37-47); Hemoglobin 8.8 g/dL (12.0-15.0)
[2023-07-09 06:19] LABS: International Normalized Ratio 3.1; Prothrombin Time (Protime)PT. 31.8 SECONDS (11.7-14.9)
[2023-07-09] MEDS: Amox/Clavulanate 500 MG Tablet GT ×2 (09:03→18:14)
[2023-07-09] MEDS: Dicyclomine 10 MG Capsule 20 MG GT (09:03)
[2023-07-09] MEDS: Doxazosin 4 MG Tablet GT (09:04)
[2023-07-09] MEDS: Potassium Chloride Oral Soln 20 MEQ/15 ML UDC 10 MEQ GT (09:04)
[2023-07-09] MEDS: Fluticasone Propionate 110 MCG AER.W.ADAP 2 PUFF INHALATION (09:04)
[2023-07-09] MEDS: Lansoprazole 15 MG Capsule.DR 30 MG GT (09:04)
[2023-07-09 09:05] VITALS: BP 120/72; PULSE 118
[2023-07-09] MEDS: Metoprolol Tartrate 25 MG Tablet GT ×2 (09:05→20:49)
[2023-07-09] MEDS: Furosemide 20 MG Tablet GT (09:05)
[2023-07-09] MEDS: Sertraline 100 MG Tablet GT (09:06)
[2023-07-09] MEDS: Ondansetron 8 MG Tablet GT ×2 (11:09→20:50)
[2023-07-09] MEDS: Menthol/Lanolin/Calamine/Znox 113 GM Tube 1 APPLIC TOPICAL ×2 (11:57→20:51)
[2023-07-09] MEDS: Cholestyramine/Sucrose 4 GM/PACKET GT (11:57)
[2023-07-09] MEDS: Lidocaine 5% Patch 1 PATCH TOPICAL (12:08)
--- NOTE | 2023-07-09 13:58 | NURSING ---
Patient reports N/V prior to lunch today with small amount of yellow emesis with mucus. PRN Zofran administered and is effective. Patient able to eat lunch with no further symptoms of N/V.
[2023-07-09 20:49] VITALS: BP 145/63; PULSE 100
[2023-07-09] MEDS: MELATONIN 3 MG TABLET GT (20:50)
[2023-07-09] MEDS: Jevity 1.5. 1,000 ML Bottle 200 ML GT (20:51)
[2023-07-09 21:03] VITALS: BP 145/63; PULSE 100
[2023-07-09 22:00] VITALS: PULSE 100; RESP 16
[2023-07-10] MEDS: Levothyroxine 50 MCG Tablet GT (05:26)
[2023-07-10] MEDS: Dicyclomine 10 MG Capsule 20 MG GT (05:27)
[2023-07-10 05:37] VITALS: RESP 16
[2023-07-10 06:00] VITALS: BMI 19.2
[2023-07-10 08:06] VITALS: BP 112/56; PULSE 99; RESP 22; TEMP 36.3; O2SAT 90
[2023-07-10] MEDS: Ondansetron 8 MG Tablet GT ×2 (08:22→16:40)
[2023-07-10] MEDS: Amox/Clavulanate 500 MG Tablet GT (08:23)
[2023-07-10] MEDS: Fluticasone Propionate 110 MCG AER.W.ADAP 2 PUFF INHALATION (08:24)
[2023-07-10] MEDS: Lansoprazole 15 MG Capsule.DR 30 MG GT (08:24)
[2023-07-10] MEDS: Lidocaine 5% Patch 1 PATCH TOPICAL (08:38)
[2023-07-10] MEDS: traMADol 50 MG Tablet GT (08:43)
[2023-07-10] MEDS: Ensure Clear 120 ML Liquid PO (09:30)
[2023-07-10] MEDS: Menthol/Lanolin/Calamine/Znox 113 GM Tube 1 APPLIC TOPICAL ×2 (09:33→21:45)
[2023-07-10] MEDS: Furosemide 20 MG Tablet GT (09:33)
[2023-07-10 09:34] VITALS: BP 112/56; PULSE 99
[2023-07-10] MEDS: Metoprolol Tartrate 25 MG Tablet GT ×2 (09:34→21:43)
[2023-07-10] MEDS: Cholestyramine/Sucrose 4 GM/PACKET GT (09:34)
[2023-07-10] MEDS: Doxazosin 4 MG Tablet GT (16:14)
[2023-07-10] MEDS: Potassium Chloride Oral Soln 20 MEQ/15 ML UDC 10 MEQ GT (16:15)
[2023-07-10] MEDS: Sertraline 100 MG Tablet GT (16:16)
--- NOTE | 2023-07-10 16:38 | CASEMGMT ---
Social Work SW spoke with pt to follow up on DC planning. Inquired how pt felt she was doing therapy and goals for DC. Pt stated her goals would be to improve on her walking and activity tolerance, improve on managing toileting tasks, and that her dtr will assist her with showers. SW explained IDT agrees as pt fluctuates with fatigue and assistance levels. Pt has been having good PO intake and would like to see how does with final bolus tube feeding discontinued. Nursing will continue with peg training with pt. SW inquired about pt's mood. Pt stated she has felt down these past few days and discouraged with being in the hospital for so long; she is wanting to return home. SW provided emotional support. SW offered staff noticing pt doing well when interacting with others and being out of her room. Pt agreed. SW offered for pt to each all meals in the central lounge. Pt agreed to lunch and dinner. SW reminded pt of activity calendar and pt can ask to be brought to the central lounge at any time. Pt agreed and appreciative. JUSTIN inquired about antidepressant. Pt stated she has been on Zoloft for many years but does not feel it is effective anymore and is open to medication adjustment. SW agreed to follow up with Dr on request. Pt appreciative. SW notified nursing of lunch and dinner preference. Left written communication for Dr on antidepressant adjustment. IDT recommending continued stay for ongoing stabilization/consistency in several areas prior to DC home. SW will coordinate skilled HHC and DME at [facility]. Will continue to follow. LAVERNE JonesW
--- NOTE | 2023-07-10 19:04 | NURSING ---
Education provided to patient regarding PEG care. This nurse demonstrated how to cleanse around PEG tube and signs to look for of infection or issues around insertion site. This nurse also demonstrated how to flush PEG and patient return demonstrated. Patient denies questions at this time. Handout provided that goes over how to cleanse PEG site, how to flush and S/S to look for and when to call doctor.
[2023-07-10 20:19] VITALS: BP 101/53; PULSE 101; RESP 18; TEMP 36.3; O2SAT 92
[2023-07-10 21:43] VITALS: BP 101/53; PULSE 101
[2023-07-10] MEDS: Jevity 1.5. 1,000 ML Bottle 200 ML GT (21:43)
[2023-07-10] MEDS: MELATONIN 3 MG TABLET GT (21:45)
[2023-07-11] MEDS: Polyethylene Glycol 3350 17 GM PACKET GT (05:40)
[2023-07-11] MEDS: Dicyclomine 10 MG Capsule 20 MG GT (05:40)
[2023-07-11] MEDS: Levothyroxine 50 MCG Tablet GT (05:40)
[2023-07-11 05:59] LABS: Hematocrit 31.4 % (37-47); Hemoglobin 9.7 g/dL (12.0-15.0)
[2023-07-11 06:00] VITALS: BMI 19.1
[2023-07-11] MEDS: Ondansetron 8 MG Tablet GT (08:03)
--- NOTE | 2023-07-11 08:05 | NURSING ---
pt c/o nausea this AM before brkfst, PRN zofran given at this time. was able to swallow whole with sips of water w/out difficulty. student in supervising pt with cristofer.
[2023-07-11] MEDS: Menthol/Lanolin/Calamine/Znox 113 GM Tube 1 APPLIC TOPICAL ×2 (08:43→21:43)
[2023-07-11] MEDS: Fluticasone Propionate 110 MCG AER.W.ADAP 2 PUFF INHALATION (08:44)
--- NOTE | 2023-07-11 08:54 | MDS.RN ---
Information for the mds was obtained from review of the clinical record, interview of resident, staff, and direct observation of resident's care.
[2023-07-11 08:57] VITALS: BP 107/60; PULSE 112; RESP 22; TEMP 36.3; O2SAT 99
[2023-07-11 09:59] VITALS: PULSE 107
[2023-07-11] MEDS: Metoprolol Tartrate 25 MG Tablet GT ×2 (09:59→21:42)
[2023-07-11] MEDS: Furosemide 20 MG Tablet GT (09:59)
[2023-07-11] MEDS: Lansoprazole 15 MG Capsule.DR 30 MG GT (09:59)
[2023-07-11 10:00] VITALS: PULSE 81; RESP 22; O2SAT 99
[2023-07-11] MEDS: Cholestyramine/Sucrose 4 GM/PACKET GT (10:00)
[2023-07-11] MEDS: Lidocaine 5% Patch 1 PATCH TOPICAL (10:00)
[2023-07-11] MEDS: Sertraline 50 MG Tablet 75 MG GT (18:32)
[2023-07-11] MEDS: Potassium Chloride Oral Soln 20 MEQ/15 ML UDC 10 MEQ GT (18:32)
[2023-07-11] MEDS: Doxazosin 4 MG Tablet GT (18:33)
[2023-07-11 21:42] VITALS: BP 116/53; PULSE 95
[2023-07-11] MEDS: MELATONIN 3 MG TABLET GT (21:42)
[2023-07-11 22:00] VITALS: PULSE 101; RESP 20; O2SAT 99
[2023-07-12 06:00] VITALS: BMI 19.0
[2023-07-12] MEDS: Levothyroxine 50 MCG Tablet GT (06:42)
[2023-07-12] MEDS: Acetaminophen 650 MG/20 ML UDC 1000 MG GT (06:42)
[2023-07-12] MEDS: Dicyclomine 10 MG Capsule 20 MG GT (06:42)
[2023-07-12 06:49] LABS: International Normalized Ratio 3.9; Prothrombin Time (Protime)PT. 37.9 SECONDS (11.7-14.9)
[2023-07-12 06:51] LABS: Hematocrit 30.2 % (37-47); Hemoglobin 9.4 g/dL (12.0-15.0)
--- NOTE | 2023-07-12 07:41 | RAD_ITS ---
STUDY: X-RAY - ABDOMEN/PELVIS REASON FOR EXAM: Female, 83 years old. Bloating. TECHNIQUE: Single AP view of the abdomen / pelvis. COMPARISON: Comparison is made with prior study July 02, 2023. FINDINGS: Blunting of the left costophrenic angle with mild left basilar atelectasis. Moderate amount of fecal material is seen throughout the colon. A PEG tube is seen in the body of the stomach. The visualized liver, spleen and kidneys are grossly normal in size and morphology. Normal soft tissue structures. There are degenerative changes of the visualized lumbar spine. RAD/Abdomen Single View IMPRESSION: Moderate amount of fecal material is seen in the colon. A PEG tube is seen within the body of the stomach. Electronically Signed: Miki Fuentes MD at 12:26 EST ,
--- NOTE | 2023-07-12 07:41 | RAD_ITS ---
STUDY: X-RAY CHEST REASON FOR EXAM: Female, 83 years old. SOB. TECHNIQUE: PA and lateral views of the chest. COMPARISON: None. FINDINGS: Small left pleural effusion with left basilar atelectasis. Minimal increased interstitial markings at the lung bases. Minimal interstitial edema. Blunting of the right costophrenic angle. Sternal cerclage wires are present from a prior sternotomy. Prior mitral valve and aortic valve replacements. Prior clipping of the left atrial appendage. Normal mediastinum and jorge luis. Normal visualized pulmonary arteries. Normal visualized aortic arch and descending thoracic aorta. There are degenerative changes of the visualized thoracic spine. Normal visualized ribs, clavicles, and shoulders. There is no demonstrated abnormality of the visualized soft tissue structures of the upper abdomen. RAD/Chest PA and Lateral IMPRESSION: Minimal interstitial edema. Small left pleural effusion with left basilar atelectasis and blunting of the right costophrenic angle. Electronically Signed: Miki Fuentes MD at 12:37 EST ,
[2023-07-12] MEDS: Lansoprazole 15 MG Capsule.DR 30 MG GT (09:11)
[2023-07-12] MEDS: Fluticasone Propionate 110 MCG AER.W.ADAP 2 PUFF INHALATION (09:11)
[2023-07-12] MEDS: Furosemide 20 MG Tablet GT (09:11)
[2023-07-12 09:15] VITALS: BP 112/50; PULSE 95
[2023-07-12] MEDS: Metoprolol Tartrate 25 MG Tablet 50 MG GT ×2 (09:15→20:34)
[2023-07-12] MEDS: Senna/Docusate Sodium 1 Tablet GT ×2 (09:16→20:34)
[2023-07-12] MEDS: Lidocaine 5% Patch 1 PATCH TOPICAL (09:18)
[2023-07-12] MEDS: Cholestyramine/Sucrose 4 GM/PACKET GT (11:55)
[2023-07-12] MEDS: Menthol/Lanolin/Calamine/Znox 113 GM Tube 1 APPLIC TOPICAL ×2 (11:55→20:35)
--- NOTE | 2023-07-12 12:32 | NURSING ---
Patient demonstrated how to clean around PEG site and how to flush her PEG tube. Had some difficulty visualizing around PEG to clean and we discussed some tips to make this easier. Patient also reports daughter interested in learning how to care for PEG. She reports daughter will not be in today so this nurse states to have daughter let nursing know when she is in and we can review PEG care with her.
[2023-07-12 16:00] VITALS: BP 114/57; PULSE 85; RESP 16; TEMP 36.1; O2SAT 98
--- NOTE | 2023-07-12 16:26 | CASEMGMT ---
Social Work SW updated pt on insurance approval with [employer]D 07/15, EDC 07/18. Pt appreciative. Laverne Cox, REGIONAL DIRECTOR TRUCK STRIKER
[2023-07-12] MEDS: Doxazosin 4 MG Tablet GT (17:27)
[2023-07-12] MEDS: Sertraline 50 MG Tablet 75 MG GT (17:27)
[2023-07-12] MEDS: Potassium Chloride Oral Soln 20 MEQ/15 ML UDC 10 MEQ GT (17:30)
--- NOTE | 2023-07-12 18:54 | NURSING ---
Patient c/o abdominal distention to Dr. Mccarthy this AM. NO for KUB and CXR which are completed this AM.
[2023-07-12 20:34] VITALS: BP 113/60; PULSE 88
[2023-07-12] MEDS: MELATONIN 3 MG TABLET GT (20:35)
[2023-07-13 06:00] VITALS: BMI 19.1
[2023-07-13 06:00] LABS: Absolute Lymphocyte Count 2.78 X10^3/uL (0.83-4.51); Absolute Neutrophil Count 3.7 X10^3/uL (2.0-7.7); Basophil# 0.04 X10^3/uL; Basophil% 0.5 % (0-1); Eosinophil# 0.31 X10^3/uL; Eosinophils% 4.1 % (0-5); Hematocrit 31.1 % (37-47); Hemoglobin 9.7 g/dL (12.0-15.0); Lymphocyte # 2.78 X10^3/ul (0.83-4.51); Lymphocyte % 36.5 % (19-41); Mean Corp Hgb Conc 31.2 g/dL (32-36); Mean Corpuscular Volume 96.3 fL (81-99); Mean Platelet Vol. 10.5 fl (6.2-12.0); Monocyte# 0.72 X10^3/uL; Monocyte% 9.5 % (0-10); NRBC Flagged by Analyzer 0 % (0-5); Neutrophil # 3.74 X10^3/uL (2.7-7.7); Neutrophil % 49.1 % (47-70); Platelet Count 173 K/mm3 (150-450); RBC Distribution Width CV 15.6 % (11.6-14.6); RBC Distribution Width SD 55.6 fl (35.1-43.9); Red Blood Count 3.23 M/mm3 (4.2-5.4); White Blood Count 7.6 K/mm3 (4.4-11.0)
[2023-07-13] MEDS: Levothyroxine 50 MCG Tablet GT ×2 (06:09)
[2023-07-13 06:14] LABS: International Normalized Ratio 3.9; Prothrombin Time (Protime)PT. 37.8 SECONDS (11.7-14.9)
[2023-07-13 06:26] LABS: Anion Gap 5 (5-15); BUN 9 mg/dL (7-18); BUN/Creat Ratio 18.9 RATIO (10-20); Calcium,Total 8.8 mg/dL (8.5-10.1); Chloride 110 mmol/L (98-107); Creatinine, Serum 0.48 mg/dL (0.55-1.02); EST Glomerular Filtration Rate 133 mL/min (>60); Est Glom Filt Rate - Afr Amer 160 mL/min (>60); Estimated Creatinine Clearance 43.57 ml/min; Glucose 92 mg/dL (74-106); Potassium 3.8 mmol/L (3.5-5.1); Sodium Level 139 mmol/L (136-145)
[2023-07-13 08:41] VITALS: BP 117/44; PULSE 109; RESP 17; TEMP 36.9; O2SAT 99
[2023-07-13] MEDS: Menthol/Lanolin/Calamine/Znox 113 GM Tube 1 APPLIC TOPICAL ×2 (08:45→21:21)
[2023-07-13] MEDS: traMADol 50 MG Tablet GT (08:46)
[2023-07-13] MEDS: Fluticasone Propionate 110 MCG AER.W.ADAP 2 PUFF INHALATION (08:46)
[2023-07-13 08:47] VITALS: PULSE 109
[2023-07-13] MEDS: Metoprolol Tartrate 25 MG Tablet 50 MG GT ×2 (08:47→21:20)
[2023-07-13] MEDS: Lidocaine 5% Patch 1 PATCH TOPICAL (08:47)
[2023-07-13] MEDS: Furosemide 20 MG Tablet GT (08:47)
[2023-07-13] MEDS: Lansoprazole 15 MG Capsule.DR 30 MG GT (08:47)
[2023-07-13] MEDS: Senna/Docusate Sodium 1 Tablet GT (08:48)
[2023-07-13] MEDS: Cholestyramine/Sucrose 4 GM/PACKET GT (12:28)
--- NOTE | 2023-07-13 13:18 | NURSING ---
Patient requesting an increase in stool softener. Patient had large firm stool this morning that was difficult for her to pass. Updated Dr. Mccarthy. New order to increase Senna to 2 tabs BID. Patient refusing ensure clear. New order to discontinue ensure clear. Orders entered by Dr. Mccarthy.
[2023-07-13] MEDS: Doxazosin 4 MG Tablet GT (18:22)
[2023-07-13] MEDS: Potassium Chloride Oral Soln 20 MEQ/15 ML UDC 10 MEQ GT (18:22)
[2023-07-13] MEDS: Sertraline 50 MG Tablet 75 MG GT (18:24)
[2023-07-13 21:15] VITALS: PULSE 95; RESP 18; O2SAT 99
[2023-07-13 21:20] VITALS: BP 108/56; PULSE 92
[2023-07-13] MEDS: Senna/Docusate Sodium 1 Tablet 2 TABLET GT (21:20)
[2023-07-13] MEDS: MELATONIN 3 MG TABLET GT (21:20)
--- NOTE | 2023-07-13 21:51 | NURSING ---
Confidential voicemail left for community mental health social worker per pt request, patient requesting to speak with SW on sunday, has questions regarding home health and INR monitoring with discharge home.
[2023-07-14 06:52] LABS: Absolute Lymphocyte Count 2.74 X10^3/uL (0.83-4.51); Absolute Neutrophil Count 3.3 X10^3/uL (2.0-7.7); Basophil# 0.07 X10^3/uL; Eosinophil# 0.33 X10^3/uL; Eosinophils% 4.6 % (0-5); Hematocrit 30.9 % (37-47); Hemoglobin 9.5 g/dL (12.0-15.0); Lymphocyte # 2.74 X10^3/ul (0.83-4.51); Mean Corp Hgb Conc 30.7 g/dL (32-36); Mean Corpuscular Hgb 29.5 pg (27.0-32.0); Mean Platelet Vol. 10.1 fl (6.2-12.0); Monocyte% 9.7 % (0-10); NRBC Flagged by Analyzer 0 % (0-5); Neutrophil # 3.34 X10^3/uL (2.7-7.7); Neutrophil % 46.3 % (47-70); Platelet Count 186 K/mm3 (150-450); RBC Distribution Width CV 15.4 % (11.6-14.6); RBC Distribution Width SD 55.1 fl (35.1-43.9); Red Blood Count 3.22 M/mm3 (4.2-5.4); White Blood Count 7.2 K/mm3 (4.4-11.0)
[2023-07-14 07:03] LABS: International Normalized Ratio 2.6; Prothrombin Time (Protime)PT. 27.4 SECONDS (11.7-14.9)
[2023-07-14 07:09] LABS: Anion Gap 2 (5-15); BUN 7 mg/dL (7-18); BUN/Creat Ratio 16.2 RATIO (10-20); Calcium,Total 9.1 mg/dL (8.5-10.1); Chloride 111 mmol/L (98-107); Creatinine, Serum 0.43 mg/dL (0.55-1.02); EST Glomerular Filtration Rate 148 mL/min (>60); Est Glom Filt Rate - Afr Amer 179 mL/min (>60); Estimated Creatinine Clearance 43.65 ml/min; Glucose 90 mg/dL (74-106); Potassium 3.7 mmol/L (3.5-5.1); Sodium Level 140 mmol/L (136-145)
[2023-07-14 09:31] VITALS: BP 120/59; PULSE 83; RESP 16; TEMP 36.4; O2SAT 97
[2023-07-14] MEDS: Lidocaine 5% Patch 1 PATCH TOPICAL (09:34)
[2023-07-14] MEDS: Fluticasone Propionate 110 MCG AER.W.ADAP 2 PUFF INHALATION (09:36)
[2023-07-14] MEDS: Furosemide 20 MG Tablet GT (09:36)
[2023-07-14] MEDS: Senna/Docusate Sodium 1 Tablet 2 TABLET GT ×2 (09:36→20:33)
[2023-07-14] MEDS: Cholestyramine/Sucrose 4 GM/PACKET GT (09:38)
[2023-07-14] MEDS: Lansoprazole 15 MG Capsule.DR 30 MG GT (09:38)
[2023-07-14 09:39] VITALS: PULSE 83
[2023-07-14] MEDS: Menthol/Lanolin/Calamine/Znox 113 GM Tube 1 APPLIC TOPICAL ×2 (09:39→20:40)
[2023-07-14] MEDS: Metoprolol Tartrate 25 MG Tablet 50 MG GT ×2 (09:39→20:31)
[2023-07-14 10:00] VITALS: PULSE 88; RESP 16; O2SAT 97
[2023-07-14 16:22] VITALS: BMI 19.3
--- NOTE | 2023-07-14 18:15 | NURSING ---
pt asking that bentyl dose be decreased to 10mg per her home regimen, dr garcia notified, new order entered.
[2023-07-14] MEDS: Doxazosin 4 MG Tablet GT (18:24)
[2023-07-14] MEDS: Sertraline 50 MG Tablet 75 MG GT (18:25)
[2023-07-14] MEDS: Potassium Chloride Oral Soln 20 MEQ/15 ML UDC 10 MEQ GT (18:25)
[2023-07-14 20:31] VITALS: BP 107/59; PULSE 106
[2023-07-14] MEDS: MELATONIN 3 MG TABLET GT (20:32)
[2023-07-14 21:15] VITALS: BP 107/59; PULSE 106
[2023-07-15] MEDS: Levothyroxine 50 MCG Tablet GT (04:56)
[2023-07-15] MEDS: Dicyclomine 10 MG Capsule GT (04:57)
[2023-07-15 07:16] LABS: International Normalized Ratio 1.9; Prothrombin Time (Protime)PT. 21.6 SECONDS (11.7-14.9)
[2023-07-15 08:44] VITALS: BP 119/60; PULSE 82; RESP 16; TEMP 36.3; O2SAT 99
[2023-07-15] MEDS: Menthol/Lanolin/Calamine/Znox 113 GM Tube 1 APPLIC TOPICAL ×2 (08:50→21:09)
[2023-07-15] MEDS: Polyethylene Glycol 3350 17 GM PACKET GT (08:51)
[2023-07-15] MEDS: Fluticasone Propionate 110 MCG AER.W.ADAP 2 PUFF INHALATION (08:51)
[2023-07-15 08:52] VITALS: PULSE 82
[2023-07-15] MEDS: Lidocaine 5% Patch 1 PATCH TOPICAL (08:52)
[2023-07-15] MEDS: Metoprolol Tartrate 25 MG Tablet 50 MG GT ×2 (08:52→21:09)
[2023-07-15] MEDS: Furosemide 20 MG Tablet GT (08:52)
[2023-07-15 10:14] VITALS: BMI 18.9
[2023-07-15] MEDS: Lansoprazole 15 MG Capsule.DR 30 MG GT (10:49)
[2023-07-15] MEDS: Cholestyramine/Sucrose 4 GM/PACKET GT (10:49)
[2023-07-15] MEDS: Senna/Docusate Sodium 1 Tablet 2 TABLET GT ×2 (10:49→21:08)
[2023-07-15] MEDS: traMADol 50 MG Tablet GT (12:57)
[2023-07-15 13:32] VITALS: PULSE 92; RESP 16; O2SAT 99
[2023-07-15] MEDS: Sertraline 50 MG Tablet 75 MG GT (18:41)
[2023-07-15] MEDS: Potassium Chloride Oral Soln 20 MEQ/15 ML UDC 10 MEQ GT (18:41)
[2023-07-15] MEDS: Doxazosin 4 MG Tablet GT (18:43)
[2023-07-15] MEDS: MELATONIN 3 MG TABLET GT (21:08)
[2023-07-15 21:09] VITALS: BP 105/47; PULSE 95
[2023-07-15 21:16] VITALS: BP 105/47; PULSE 95
[2023-07-16] MEDS: Dicyclomine 10 MG Capsule GT (05:12)
[2023-07-16] MEDS: Levothyroxine 50 MCG Tablet GT (05:12)
[2023-07-16 05:36] VITALS: RESP 16
[2023-07-16 06:00] VITALS: BMI 19.2
[2023-07-16 06:35] LABS: International Normalized Ratio 1.7; Prothrombin Time (Protime)PT. 19.7 SECONDS (11.7-14.9)
[2023-07-16 10:19] VITALS: BP 108/57; PULSE 102
[2023-07-16] MEDS: Fluticasone Propionate 110 MCG AER.W.ADAP 2 PUFF INHALATION (10:19)
[2023-07-16] MEDS: Lidocaine 5% Patch 1 PATCH TOPICAL (10:19)
[2023-07-16] MEDS: Metoprolol Tartrate 25 MG Tablet 50 MG GT ×2 (10:19→21:51)
[2023-07-16] MEDS: Cholestyramine/Sucrose 4 GM/PACKET GT (10:19)
[2023-07-16] MEDS: Lansoprazole 15 MG Capsule.DR 30 MG GT (10:20)
[2023-07-16] MEDS: Senna/Docusate Sodium 1 Tablet 2 TABLET GT ×2 (10:20→21:51)
[2023-07-16] MEDS: Furosemide 20 MG Tablet GT (10:20)
[2023-07-16] MEDS: Menthol/Lanolin/Calamine/Znox 113 GM Tube 1 APPLIC TOPICAL ×2 (10:29→21:55)
[2023-07-16 15:30] VITALS: BP 113/60; PULSE 99; RESP 17; TEMP 36.6; O2SAT 100
[2023-07-16] MEDS: Potassium Chloride Oral Soln 20 MEQ/15 ML UDC 10 MEQ GT (16:51)
[2023-07-16] MEDS: Acetaminophen 650 MG/20 ML UDC 1000 MG GT (16:52)
[2023-07-16] MEDS: Sertraline 50 MG Tablet 75 MG GT (16:53)
[2023-07-16] MEDS: Doxazosin 4 MG Tablet GT (16:53)
--- NOTE | 2023-07-16 17:19 | CASEMGMT ---
Social Work Insurance issued LCD 07/17, DC 07/18. SW spoke with pt and pt agreeable to DC. SW provided printed list of skilled HHC agenices in preferred area with quality and resource data via [email or web address]. Pt to review with dtr and notify this worker. Pt is also going to see if she has a BSC at home from . Otherwise, SW to refer to [facility] for [facility]. Family to transport at DC. Plan: DC home with 07/18, HHC PT/OT/ST/SN Laverne Cox, ELECTRICIAN SECOND ORTHODONTIC TECHNICIAN
--- NOTE | 2023-07-16 20:03 | DS.PCM_ITS ---
Providers Date of Admission: 06/29/23 Primary Care Physician: Dr. Kwabena Marques MD Consultations 07/10/23 16:51 Consult: Gastroenterology Routine Consulting Provider: Kristy Gastroenter[facility] Reason for Consult: Anemia, blood in stool. EMERGENT Consult: No MD Notified: Yes Date Notified: 07/10/23 Time Notified: 16:51 Method of Notification: Text Reason For Visit: AORTIC MASS REMOVAL, NV/AV/MAZEL Diagnosis Discharge Diagnosis (1) Debility: Status: Acute Code(s): R53.81 - Other malaise (2) Mitral valve regurgitation: Status: Acute Code(s): I34.0 - Nonrheumatic mitral (valve) insufficiency (3) Tricuspid valve regurgitation: Status: Acute Code(s): I07.1 - Rheumatic tricuspid insufficiency (4) Aortic insufficiency: Status: Acute Code(s): I35.1 - Nonrheumatic aortic (valve) insufficiency (5) Aortic valve mass: Status: Acute Code(s): I35.8 - Other nonrheumatic aortic valve disorders (6) Afib: Status: Chronic Code(s): I48.91 - Unspecified atrial fibrillation (7) HIT (heparin-induced thrombocytopenia): Status: Acute Code(s): D75.829 - Heparin-induced thrombocytopenia, unspecified (8) Acute encephalopathy: Status: Acute Code(s): G93.40 - Encephalopathy, unspecified (9) Urinary retention: Status: Acute Code(s): R33.9 - Retention of urine, unspecified (10) Asthma: Status: Chronic Code(s): J45.909 - Unspecified asthma, uncomplicated (11) IBS (irritable bowel syndrome): Status: Chronic (12) GERD (gastroesophageal reflux disease): Status: Acute Code(s): K21.9 - Gastro-esophageal reflux disease without esophagitis (13) Hypothyroidism: Status: Chronic Code(s): E03.9 - Hypothyroidism, unspecified (14) Depression: Status: Acute Code(s): F32.A - Depression, unspecified (15) Anxiety: Status: Acute Code(s): F41.9 - Anxiety disorder, unspecified (16) Cataract: Status: Acute Code(s): H26.9 - Unspecified cataract (17) Dysphagia: Status: Acute Code(s): R13.10 - Dysphagia, unspecified (18) S/P percutaneous endoscopic gastrostomy (PEG) tube placement: Status: Acute Code(s): Z93.1 - Gastrostomy status Plan 83 year old female with below past medical history hospitalized for MVR, TVR, Aortic mass removal, MAZE, complicated by encephalopathy, coagulopathy, urinary retention, dysphagia requiring PEG, admitted to TCU with debility, here for rehabilitation, strengthening, prior to discharge home with . * Debility - PT/OT. * Dysphagia - ST. * Pain - Tylenol 325mg q4 prn, Tramadol 50mg q6 prn, Lidoderm patch 1 patch td daily. * Bowel - Miralax 17gm bid prn, Senna/colace 1 tablet bid prn, Ducolax 10mg pr prn, MOM 15ml q6 prn. * Adult immunization - Administer pneumonia vaccine, covid vaccine, flu vaccine as appropriate. * DVT prophylaxis - on coumadin. * Sore throat - Cepacol 1 lozenge q2h prn. * Indigestion - TUMS 1250mg tid prn. * IBS - Cholestyramine 4gm daily, Bentyl 20mg daily, Loperamide 2mg q2 prn. * Urinary retention - Cardura 4mg daily. * Asthma - Flovent 110mcg 2 puff daily. * Edema - Furosemide 20mg daily. * Cough - Robitussin 10ml q4h prn. * s/p peg/nutrition - Jevity 1.5 55cc/hour. * GI prophylaxis - Lactobacillus 1 tablet daily. * GERD - Lansoprazole 30mg daily * Hypothyroidism - Levothyroxine 50mcg daily. * Insomnia - Melatonin 3mg qhs. * Skin irritation - Calmoseptine topical bid, Zinic oxide topical daily prn. * Atrial fibrillation s/p MAZE - Metoprolol 25mg bid, coumadin 3mg daily, monitor INR. * Dry eyes - Lacrilube ou qhs. * Hypokalemia - KCL 10meq daily. * Depression - Sertraline 100mg daily, stable chronic prison use, GDR not recommended. Medications at Discharge Home Medications acetaminophen 650 mg/20.3 mL oral solution 1,000 mg (31.2308 mL) G-tube Q6H PRN PRN Pain Score 1-3 30 days #1,000 mL 03/04/24 acidophilus 25 million cell-pectin, citrus 100 mg tablet 1 tab G-tube 0600 #0 tabs 07/16/23 calcium carbonate 500 mg/5 mL calcium (1,250 mg/5 mL) oral suspension 1,250 mg (12.5 mL) G-tube TID PRN PRN Indigestion 30 days #1,000 mL 07/16/23 cholestyramine (with sugar) 4 gram powder for susp in a packet 4 g G-tube DAILY #0 ea 07/16/23 citalopram 10 mg tablet 10 mg G-tube 1700 30 days #30 tabs 07/16/23 dicyclomine 10 mg capsule 10 mg G-tube 0600 #0 caps 07/16/23 doxazosin 4 mg tablet 4 mg G-tube 1700 30 days #30 tabs 07/16/23 fluticasone propionate 110 mcg/actuation HFA aerosol inhaler 2 puff inhalation DAILY #0 grams 07/16/23 furosemide 20 mg tablet 20 mg G-tube DAILY 30 days #30 tabs 07/16/23 lansoprazole 15 mg capsule,delayed release 30 mg (2 x 15 mg) G-tube DAILY 30 days #60 caps 07/16/23 levothyroxine 50 mcg tablet 50 mcg G-tube DAILY@0600 #0 tabs 07/16/23 metoprolol tartrate 25 mg tablet 50 mg (2 x 25 mg) G-tube BID 30 days #120 tabs 07/16/23 potassium chloride 20 mEq/15 mL oral liquid 10 meq (7.5 mL) G-tube 1700 30 days #225 mL 07/16/23 warfarin 3 mg tablet (Jantoven) 3 mg PO DINNER 30 days #30 tabs 07/16/23 Hospital Course Operations - (See below.) Procedures Peg tube placement Summary of Care Provided Minutes Spent on Discharge: 35 Hospital Course: 83 year old female with below past medical history hospitalized for MVR, TVR, Aortic mass removal, MAZE, complicated by encephalopathy, coagulopathy, urinary retention, dysphagia requiring PEG, admitted to TCU with debility, here for rehabilitation, strengthening, prior to discharge home with . Discharge home with 07/19/2023, [facility] PT/OT/ST/SN. Physical Exam Const alert General Appearance: cooperative HEENT normocephalic Eyes PERRL and EOMs intact bilaterally Neck supple, no JVD and no carotid bruits Resp normal respiratory effort, normal air movement and clear to auscultation bilaterally Cardio regular rate and regular rhythm GI normal to inspection, nondistended, normoactive bowel sounds, non-tender and non-distended GI Narrative: Peg. Extremity normal capillary refill General Extremity: Negative for edema Skin no rashes or lesions noted General Skin Exam: no breakdown Psych affect normal Appearance: appropriate Weight / BMI Weight Weight: 52.345 kg Body Mass Index (BMI) 19.2 ABG / Lab / Microbiology Data 07/14/23 06:40 07/14/23 06:40 Laboratory: Laboratory Results - last 24 hr 07/16/23 05:37: PT 19.7 H, INR 1.7 Microbiology: Microbiology 07/08/23 16:16 Stool Stool Occult Blood (TYREE) - Final Occult Blood Positive 07/02/23 08:30 Urine, Catheterized Urine Culture - Final Escherichia coli D/C Instructions Discharge Diet: No restrictions Discharge Activity: Return to Normal Activity, May Shower and Use Walker Weight Bearing Status: Weight bearing as tolerated Call your doctor if you observe: Fever of 101 or Higher, Inability to urinate, Inability to have a bowel movement, Shortness of breath, Dizziness, Fainting spells, Swelling in the ankles, Chest pain and Uncontrolled pain Additional Instructions: Discharge home with 07/19/2023, [facility] PT/OT/ST/SN. Please Follow Up With: Dr. Jagdish Cueva When: As scheduled. Meaningful Use Info Meaningful Use Diagnoses (Choose all that apply): None applicable Discharge Plan Admission Admit Date/Time: 06/29/23 19:45 Primary Reason for Your Visit: Debility. Attending Provider: Javad Mccarthy Chi Primary Care Provider: Kwabena Marques Instructions Additional Instructions / Restrictions: Discharge home with 07/19/2023, [facility] PT/OT/ST/SN. Discharge Orders/Prescriptions Prescriptions: New calcium carbonate 500 mg/5 mL (1,250 mg/5 mL) Suspension 1,250 mg G-tube TID PRN PRN (Reason: Indigestion) 30 Days Qty: 1000 0RF acetaminophen 650 mg/20.3 mL Solution 1,000 mg G-tube Q6H PRN PRN (Reason: Pain Score 1-3) 30 Days Qty: 1000 0RF dicyclomine 10 mg Capsule 10 mg G-tube 0600 Qty: 0 0RF fluticasone propionate 110 mcg/actuation Hfa Aerosol Inhaler 2 puff inhalation DAILY Qty: 0 0RF cholestyramine (with sugar) 4 gram Powder In Packet 4 g G-tube DAILY Qty: 0 0RF doxazosin 4 mg Tablet 4 mg G-tube 1700 30 Days Qty: 30 0RF furosemide 20 mg Tablet 20 mg G-tube DAILY 30 Days Qty: 30 0RF acidophilus-pectin, citrus 25 million cell -100 mg Tablet 1 tab G-tube 0600 Qty: 0 0RF citalopram 10 mg Tablet 10 mg G-tube 1700 30 Days Qty: 30 0RF potassium chloride 20 mEq/15 mL Liquid 10 meq G-tube 1700 30 Days Qty: 225 0RF warfarin [Jantoven] 3 mg Tablet 3 mg PO DINNER 30 Days Qty: 30 0RF levothyroxine 50 mcg Tablet 50 mcg G-tube DAILY@0600 Qty: 0 0RF lansoprazole 15 mg Capsule,Delayed Release(Dr/Ec) 30 mg G-tube DAILY 30 Days Qty: 60 0RF metoprolol tartrate 25 mg Tablet 50 mg G-tube BID 30 Days Qty: 120 0RF Discontinued digoxin 0.125 MG/2.5 ML solution 0.125 mg PO DAILY Patient Comments: HEART levothyroxine 50 MCG tablet 75 mcg PO DAILY Patient Comments: hypothyroid cholestyramine (with sugar) 378 GM powder 4 g PO DAILY 30 Days 0RF Patient Comments: DIVERTICULOSIS X 30 DAYS sertraline 100 MG tablet 100 mg PO DAILY Qty: 30 0RF alprazolam 0.5 MG tablet 0.25 mg PO QHS warfarin [Jantoven] 2 MG tablet 2.5 mg PO DAILY Hold Instructions: Resume on 05/09/21. Patient Comments: BLOOD THINNER START 04/27/16 dicyclomine 20 mg tablet 20 mg PO BID fluticasone propionate [Flovent HFA] 220 mcg/actuation HFA aerosol inhaler 2 puff INHALATION BID Rx Instructions: rinse mouth after use metoprolol tartrate 25 mg tablet 25 mg PO BID rabeprazole 20 mg tablet,delayed release (DR/EC) 20 mg PO DAILY nitrofurantoin monohyd/m-cryst 100 mg capsule 100 mg PO Q12H Patient Comments: TAKE 1 CAPSULE BY MOUTH EVERY 12 HOURS DAILY levofloxacin 750 mg tablet 750 mg PO Q48H Qty: 3 0RF Rx Instructions: Start 05/04/2021 Referrals / Follow Up: Kwabena Marques MD [Primary Care Provider] - Disposition Disposition (needs filled in before D/C Order can be placed): Home Health Service
[2023-07-16 21:51] VITALS: BP 103/54; PULSE 100
[2023-07-16] MEDS: MELATONIN 3 MG TABLET GT (21:52)
[2023-07-17 06:27] LABS: International Normalized Ratio 1.9; Prothrombin Time (Protime)PT. 22.1 SECONDS (11.7-14.9)
[2023-07-17] MEDS: Levothyroxine 50 MCG Tablet GT (06:48)
[2023-07-17] MEDS: Dicyclomine 10 MG Capsule GT (06:48)
[2023-07-17] MEDS: Fluticasone Propionate 110 MCG AER.W.ADAP 2 PUFF INHALATION (08:30)
[2023-07-17] MEDS: Furosemide 20 MG Tablet GT (08:31)
[2023-07-17] MEDS: Lansoprazole 15 MG Capsule.DR 30 MG GT (08:31)
[2023-07-17] MEDS: Lidocaine 5% Patch 1 PATCH TOPICAL (08:32)
[2023-07-17] MEDS: Senna/Docusate Sodium 1 Tablet 2 TABLET GT ×2 (08:32→20:21)
[2023-07-17 08:35] VITALS: BP 102/54; PULSE 107
[2023-07-17] MEDS: Metoprolol Tartrate 25 MG Tablet 50 MG GT ×2 (08:35→20:21)
[2023-07-17] MEDS: Cholestyramine/Sucrose 4 GM/PACKET GT (11:35)
[2023-07-17] MEDS: Menthol/Lanolin/Calamine/Znox 113 GM Tube 1 APPLIC TOPICAL ×2 (11:37→20:25)
--- NOTE | 2023-07-17 12:39 | NURSING ---
General surgery calls back to state they will need an order for PEG removal either placed in [facility] or faxed as well as orders regarding when to hold Coumadin for procedure before able to schedule PEG removal. Dr. Mccarthy made aware.
--- NOTE | 2023-07-17 15:22 | NURSING ---
Patient demonstrated how to clean around PEG with no difficulty and how to flush PEG via gravity method. Patient denies any questions and reports she feels comfortable with this process.
[2023-07-17] MEDS: Ondansetron 8 MG Tablet GT (15:27)
--- NOTE | 2023-07-17 16:39 | CASEMGMT ---
Addendum entered by Lavrene Cox 07/18/23 16:23: [facility] can accept with SOC 07/19. Pt updated. Addendum entered by Laverne Cox 07/18/23 12:53: [facility] cannot provide ST. SW phoned referral to [facility]. Addendum entered by Laverne Cox 07/18/23 08:41: SW sent referral to [facility] via [facility] for PT/OT/ST/SN. Original Note: Social Work SW spoke with pt to follow up on DC plans. SW answered pt's questions. Pt's preferences for [facility] are [facility] and [facility]. Pt inquiring if [facility] can complete PT/INR checks. SW to follow up with Drs order and inquire to the [facility] agencies. Pt denied needing a BSC. -- is ordering 3x/wk for PT/INR checks. LAVERNE JonesW
[2023-07-17] MEDS: Potassium Chloride Oral Soln 20 MEQ/15 ML UDC 10 MEQ GT (17:06)
[2023-07-17] MEDS: Sertraline 50 MG Tablet 75 MG GT (17:07)
[2023-07-17] MEDS: Doxazosin 4 MG Tablet GT (17:07)
[2023-07-17 20:21] VITALS: BP 109/50; PULSE 92
[2023-07-17] MEDS: MELATONIN 3 MG TABLET GT (20:21)
[2023-07-17 20:29] VITALS: BP 109/50; PULSE 92
[2023-07-17 22:28] VITALS: PULSE 95; RESP 16
[2023-07-18] MEDS: Levothyroxine 50 MCG Tablet GT (05:35)
[2023-07-18] MEDS: Dicyclomine 10 MG Capsule GT (05:35)
[2023-07-18 06:00] VITALS: BMI 18.8
[2023-07-18 06:48] VITALS: RESP 16
[2023-07-18] MEDS: Lidocaine 5% Patch 1 PATCH TOPICAL (10:55)
[2023-07-18] MEDS: Fluticasone Propionate 110 MCG AER.W.ADAP 2 PUFF INHALATION (10:55)
[2023-07-18] MEDS: Furosemide 20 MG Tablet GT (10:55)
[2023-07-18] MEDS: Lansoprazole 15 MG Capsule.DR 30 MG GT (10:55)
[2023-07-18 10:56] VITALS: BP 109/63; PULSE 104
[2023-07-18] MEDS: Cholestyramine/Sucrose 4 GM/PACKET GT (10:56)
[2023-07-18] MEDS: Metoprolol Tartrate 25 MG Tablet 50 MG GT ×2 (10:56→20:40)
[2023-07-18] MEDS: Senna/Docusate Sodium 1 Tablet 2 TABLET GT ×2 (10:56→20:40)
[2023-07-18] MEDS: Menthol/Lanolin/Calamine/Znox 113 GM Tube 1 APPLIC TOPICAL ×2 (10:57→20:42)
--- NOTE | 2023-07-18 13:59 | NURSING ---
Addendum entered by Lilia Lei 07/18/23 14:58: Request faxed back for the operative report. Op report faxed. Original Note: Order for PEG removal with stop date for Coumadin faxed to [facility] surgical associates at #[phone].
[2023-07-18 16:00] VITALS: BP 118/57; PULSE 100; RESP 18; TEMP 36.3; O2SAT 100
[2023-07-18] MEDS: Doxazosin 4 MG Tablet GT (17:02)
[2023-07-18] MEDS: Potassium Chloride Oral Soln 20 MEQ/15 ML UDC 10 MEQ GT (17:02)
[2023-07-18] MEDS: Sertraline 50 MG Tablet 75 MG GT (17:02)
[2023-07-18 20:40] VITALS: BP 104/64; PULSE 94
[2023-07-18] MEDS: MELATONIN 3 MG TABLET GT (20:40)
[2023-07-18 20:51] VITALS: BP 106/64; PULSE 94
[2023-07-19] MEDS: Dicyclomine 10 MG Capsule GT (04:46)
[2023-07-19] MEDS: Levothyroxine 50 MCG Tablet GT (04:46)
[2023-07-19 05:36] VITALS: RESP 16
[2023-07-19 06:15] LABS: International Normalized Ratio 2.5; Prothrombin Time (Protime)PT. 26.6 SECONDS (11.7-14.9)
[2023-07-19] MEDS: Menthol/Lanolin/Calamine/Znox 113 GM Tube 1 APPLIC TOPICAL (08:55)
[2023-07-19 08:59] VITALS: PULSE 79
[2023-07-19] MEDS: Metoprolol Tartrate 25 MG Tablet 50 MG GT (08:59)
[2023-07-19] MEDS: Lidocaine 5% Patch 1 PATCH TOPICAL (08:59)
[2023-07-19] MEDS: Fluticasone Propionate 110 MCG AER.W.ADAP 2 PUFF INHALATION (09:00)
[2023-07-19] MEDS: Furosemide 20 MG Tablet GT (09:00)
[2023-07-19] MEDS: Ondansetron 8 MG Tablet GT (09:03)
[2023-07-19 09:30] VITALS: BP 108/63; PULSE 94; RESP 16; TEMP 36.2; O2SAT 96
--- NOTE | 2023-07-19 10:15 | NURSING ---
Flushed PEG tube with 50cc water to keep patent w/out difficulty. printed DC paperwork for pt to review and this nurse will review d/c instructions when family arrives. pt agreeable. pt resting in bed call light in reach.
[2023-07-19] MEDS: Lansoprazole 15 MG Capsule.DR 30 MG GT (10:24)
--- NOTE | 2023-07-19 12:18 | CASEMGMT ---
Social Work BIMS () and PHQ-2 () completed for MDS assessment. Laverne Cox MSW [employer]
== END 2023-07-19 13:30 | disposition home health service (06) | DRG 949 ==
PROVIDERS: Admitting Provider Family Medicine Geriatric Medicine; PCP Family Medicine; Referring Provider Family Medicine Geriatric Medicine; Visit Provider Family Medicine Geriatric Medicine
DX: Z48.812 Encounter for surgical aftercare following surgery on the circulatory system (principal); N39.0 Urinary tract infection, site not specified; E44.1 Mild protein-calorie malnutrition; D68.9 Coagulation defect, unspecified; J90 Pleural effusion, not elsewhere classified; I48.20 Chronic atrial fibrillation, unspecified; Z68.1 Body mass index [BMI] 19.9 or less, adult; D75.829 Heparin-induced thrombocytopenia, unspecified; I77.9 Disorder of arteries and arterioles, unspecified; Z93.1 Gastrostomy status; E03.9 Hypothyroidism, unspecified; J45.909 Unspecified asthma, uncomplicated; I10 Essential (primary) hypertension; F32.A Depression, unspecified; I08.3 Combined rheumatic disorders of mitral, aortic and tricuspid valves; F41.9 Anxiety disorder, unspecified; K58.9 Irritable bowel syndrome, unspecified; K21.9 Gastro-esophageal reflux disease without esophagitis; E87.6 Hypokalemia; Z95.2 Presence of prosthetic heart valve; R33.9 Retention of urine, unspecified; R13.10 Dysphagia, unspecified; Z79.82 Long term (current) use of aspirin; Z87.891 Personal history of nicotine dependence; Z79.899 Other long term (current) drug therapy; Z79.890 Hormone replacement therapy; T45.515D Adverse effect of anticoagulants, subsequent encounter
CPT/HCPCS: 36415; 71046; 74018; 74230; 80048; 81001; 82274; 84439; 84443; 85014; 85018; 85025; 85610; 87077; 87086; 87088; 87186; 92526; 92610; 92611; 94667; 94668; 97110; 97116; 97162; 97166; 97530; 97535; 97802; 97803

== ENCOUNTER 2023-09-17 17:01 | Emergency (ER) | payer MEDICARE, SELFPAY ==
[2023-09-17 17:03] VITALS: BP 113/69; PULSE 91; RESP 16; TEMP 36.3; O2SAT 100; BMI 19.1
--- NOTE | 2023-09-17 17:38 | EX.ED.DYSGE1 ---
HPI History of Present Illness Chief Complaint: Cough [facility] Medical History (Updated 08/03/23 @ 13:25 by Nathalie Espino) Acute encephalopathy Anxiety Aortic insufficiency Aortic valve mass Cataract Debility Depression Dysphagia GERD (gastroesophageal reflux disease) HIT (heparin-induced thrombocytopenia) Mitral valve regurgitation Tricuspid valve regurgitation Urinary retention Home Medications acetaminophen 650 mg/20.3 mL oral solution 1,000 mg (31.2308 mL) G-tube Q6H PRN PRN Pain Score 1-3 30 days #1,000 mL 07/16/23 [Rx Last Taken Unknown] acidophilus 25 million cell-pectin, citrus 100 mg tablet 1 tab G-tube 0600 #0 tabs 07/16/23 [Rx Last Taken Unknown] calcium carbonate 500 mg/5 mL (as calcium carb 1,250 mg/5 mL) oral suspension 1,250 mg (12.5 mL) G-tube TID PRN PRN Indigestion 30 days #1,000 mL 07/16/23 [Rx Last Taken Unknown] cholestyramine (with sugar) 4 gram powder for susp in a packet 4 g G-tube DAILY #0 ea 07/16/23 [Rx Last Taken Unknown] citalopram 10 mg tablet 10 mg G-tube 1700 30 days #30 tabs 07/16/23 [Rx Last Taken Unknown] dicyclomine 10 mg capsule 10 mg G-tube 0600 #0 caps 07/16/23 [Rx Last Taken Unknown] doxazosin 4 mg tablet 4 mg G-tube 1700 30 days #30 tabs 07/16/23 [Rx Last Taken Unknown] fluticasone propionate 110 mcg/actuation HFA aerosol inhaler 2 puff inhalation DAILY #0 grams 07/16/23 [Rx Last Taken Unknown] furosemide 20 mg tablet 20 mg G-tube DAILY 30 days #30 tabs 07/16/23 [Rx Last Taken Unknown] lansoprazole 15 mg capsule,delayed release 30 mg (2 x 15 mg) G-tube DAILY 30 days #60 caps 07/16/23 [Rx Last Taken Unknown] levothyroxine 50 mcg tablet 50 mcg G-tube DAILY@0600 #0 tabs 07/16/23 [Rx Last Taken Unknown] metoprolol tartrate 25 mg tablet 50 mg (2 x 25 mg) G-tube BID 30 days #120 tabs 07/16/23 [Rx Last Taken Unknown] warfarin 3 mg tablet (Jantoven) 3 mg PO DINNER 30 days #30 tabs 07/16/23 [Rx Last Taken Unknown] potassium chloride 10 mEq capsule,extended release 10 meq PO DAILY #30 caps 07/17/23 [Rx Last Taken Unknown] levothyroxine 50 mcg capsule 50 mcg PO DAILY #30 caps 07/20/23 [Rx Last Taken Unknown] Allergy/AdvReac Type Severity Reaction Status Date / Time morphine Allergy Intermediate Other Verified 09/17/23 17:05 aspirin Allergy Unknown Rash, hives Verified 09/17/23 17:05 Iodinated Contrast Media Allergy Hives Verified 09/17/23 17:05 [DYEE] Tetanus Vaccines and Toxoid Allergy Rash Verified 09/17/23 17:05 azithromycin AdvReac Severe Other Verified 09/17/23 17:05 [From Zithromax Z-Landen] codeine AdvReac Severe Itching Verified 09/17/23 17:05 heparin AdvReac Severe Bleeding Verified 09/17/23 17:05 cefaclor [From Ceclor] AdvReac Vomiting Verified 09/17/23 17:05 metronidazole [From Flagyl] AdvReac Nausea/Vom/ Verified 09/17/23 17:05 Diarrhea Sulfa (Sulfonamide AdvReac double Verified 09/17/23 17:05 Antibiotics) vision Family History Mother Diabetes Father Prostate cancer Sister CVA (cerebral vascular accident) Sister COPD (chronic obstructive pulmonary disease) Surgical History History of bladder suspension procedure History of cholecystectomy History of maze procedure History of mitral valve replacement History of tricuspid valve replacement S/P percutaneous endoscopic gastrostomy (PEG) tube placement Social History household members: spouse Smoking Status: Former smoker alcohol intake: never substance use type: does not use EXAM Physical Exam Const Vital Signs: 09/17/23 17:03 09/17/23 18:30 09/17/23 17:40 Temperature 97.4 F L Temperature Source Temporal Pulse Rate 91 Respiratory Rate 16 Respiratory Effort Normal Respiratory Depth Normal Respiratory Pattern Normal Blood Pressure 113/69 Blood Pressure Mean 83 Pulse Ox 100 Oxygen Delivery Method Room Air Room Air MDM MDM MDM Narrative Medical decision making narrative: HISTORY OF PRESENT ILLNESS: 83-year-old female presents with cough. Notes she was diagnosed: 1 week ago notes today she coughed up green sputum. Was concerned that her COVID was becoming worse. So she presented to the ED REVIEW OF SYSTEMS: Pertinent positives: Cough Pertinent negatives: Shortness of breath, chest pain, bleeding diathesis, syncope PHYSICAL EXAM: Nursing triage notes reviewed, Vital signs reviewed Constitutional: please see mdm HENT: MMM Eyes: Pupils equal round and reactive to light, Extraocular muscles intact Neck: No stridor, no JVD, full neck ROM Lungs: Clear to auscultation, No wheezing or rales. No increased work of breathing, no conversational dyspnea, no accessory muscle use, no nasal flaring. No respiratory distress noted Heart: Regular rate and rhythm, No murmurs, No rubs and No gallops, 2+ distal pulses (radial, femoral, posterior tibial) in all extremities Abdomen: Soft, there is no tenderness, rigidity, rebound or guarding, no obvious peritoneal signs, no palpable pulsatile abdominal masses, no auscultated abdominal bruit : No CVAT Extremities: No edema Neuro: No focal neurological deficits, cranial nerves II through XII intact, 5/5 strength in all extremities. Intact sensation to light touch in all extremities, 2+ reflexes bilateral patella tendons. Normal gait. No ataxia. Skin: No rash or lesions noted MEDICAL DECISION MAKING: Chief Complaint: Cough External records reviewed:Imaging reviewed: Chest x-ray from June 2023 shows small left pleural effusion Factors affecting care: Check is regurgitation, anxiety, aortic insufficiency, aortic valve mass Social determinants of health: Elderly History obtained from others: the patient's daughter Consults: none [facility] Narrative: The patient was hemodynamically stable, afebrile and nontoxic-appearing. Exam without focal cardiopulmonary normality I considered the following differential diagnosis: Pneumonia, COVID, anemia, electrolyte disturbance ALL IMAGES (IF OBTAINED) HAVE BEEN PERSONALLY REVIEWED AND INTERPRETED BY MYSELF. Chest x-ray was reviewed myself shows no evidence of obvious abnormality. The patient was ambulate without significant hypoxia Patient symptoms likely secondary to recently diagnosed COVID. She denies any bleeding diathesis suggest anemia denies any volume such as vomiting or diarrhea to suggest electrolyte abnormalities. Strict return precautions were discussed The patient and/or family, caregivers express understanding. The patient and/or family, caregivers agrees with the plan. Shared decision making: I will have a discussion with the patient and or visitors regarding risk/benefits of further testing or admission. They will be made aware of of the risk/benefits inherent in this decision they will be given the opportunity to voice understanding. Total critical care time today provided was at least 0 minutes. This excludes separately billable procedures. Critical care time (if documented) is secondary to the patient having high probability of clinically significant/life threatening deterioration in the patient's condition which required my urgent intervention. Impression: 1. Cough 2. COVID-19 Dispo: Discharge home This note was generated with [employer] dictation software. It may contain incorrect words, spelling, and punctuation that were not noted in review of the chart prior to signing. Radiography Diagnostic Testing: Clinical Impression(s) from Imaging Studies Chest X-Ray 09/17/23 17:55 IMPRESSION: No acute findings in the chest. Electronically Signed: Kwasi Barboza MD at 19:04 EDT , Discharge Plan Triage Chief Complaint: Cough ED Provider: Alban Callejas Dx/Rx/DC Orders Prescriptions: No Action calcium carbonate 500 mg/5 mL (1,250 mg/5 mL) Suspension 1,250 mg G-tube TID PRN PRN (Reason: Indigestion) 30 Days Qty: 1000 0RF acetaminophen 650 mg/20.3 mL Solution 1,000 mg G-tube Q6H PRN PRN (Reason: Pain Score 1-3) 30 Days Qty: 1000 0RF dicyclomine 10 mg Capsule 10 mg G-tube 0600 Qty: 0 0RF fluticasone propionate 110 mcg/actuation Hfa Aerosol Inhaler 2 puff inhalation DAILY Qty: 0 0RF cholestyramine (with sugar) 4 gram Powder In Packet 4 g G-tube DAILY Qty: 0 0RF doxazosin 4 mg Tablet 4 mg G-tube 1700 30 Days Qty: 30 0RF furosemide 20 mg Tablet 20 mg G-tube DAILY 30 Days Qty: 30 0RF acidophilus-pectin, citrus 25 million cell -100 mg Tablet 1 tab G-tube 0600 Qty: 0 0RF citalopram 10 mg Tablet 10 mg G-tube 1700 30 Days Qty: 30 0RF warfarin [Jantoven] 3 mg Tablet 3 mg PO DINNER 30 Days Qty: 30 0RF levothyroxine 50 mcg Tablet 50 mcg G-tube DAILY@0600 Qty: 0 0RF lansoprazole 15 mg Capsule,Delayed Release(Dr/Ec) 30 mg G-tube DAILY 30 Days Qty: 60 0RF metoprolol tartrate 25 mg Tablet 50 mg G-tube BID 30 Days Qty: 120 0RF potassium chloride 10 mEq capsule, extended release 10 meq PO DAILY Qty: 30 0RF levothyroxine 50 mcg capsule 50 mcg PO DAILY Qty: 30 0RF Primary Care Provider: Kwabena Marques Referrals: Kwabena Marques MD [Primary Care Provider] -
[2023-09-17 17:39] VITALS: O2SAT 100
--- NOTE | 2023-09-17 17:40 | EKG12_ITS ---
Test Reason : SOB Blood Pressure : / mmHG Vent. Rate : 086 BPM Atrial Rate : 000 BPM P-R Int : 000 ms QRS Dur : 078 ms QT Int : 376 ms P-R-T Axes : 000 003 072 degrees QTc Int : 449 ms Atrial fibrillation Cannot rule out Inferior infarct , age undetermined Abnormal ECG Confirmed by Kwabena Ricks ([id number]), editor map CHASITY FARIA ([id number]) on 09/18/2023 10:02:01 AM Referred By: Confirmed By:Kwabena Ricks
--- NOTE | 2023-09-17 17:55 | RAD_ITS ---
EXAM: XR CHEST, 2 VIEWS CLINICAL INDICATION: cough TECHNIQUE: Frontal and lateral views of the chest. COMPARISON: No relevant prior studies available. FINDINGS: LUNGS AND PLEURAL SPACES: Unremarkable. No consolidation or edema. No pneumothorax. No effusion. HEART: There is an atrial appendage clip. There are prosthetic valves in place. MEDIASTINUM: Central airways and mediastinal contour are unremarkable. BONES/JOINTS: Unremarkable. No acute fracture. SOFT TISSUES: Unremarkable. RAD/Chest PA and Lateral IMPRESSION: No acute findings in the chest. Electronically Signed: Kwasi Barboza MD at 19:04 EDT ,
[2023-09-17 21:02] VITALS: PULSE 82; RESP 19; O2SAT 96
[2023-09-17 21:11] VITALS: BP 141/70; PULSE 64; RESP 16; TEMP 36.6; O2SAT 97
== END 2023-09-17 21:22 | disposition home or self-care (01) ==
PROVIDERS: Emergency Provider Emergency Medicine; PCP Family Medicine; Visit Provider Emergency Medicine
DX: U07.1 COVID-19 (principal); Z93.1 Gastrostomy status; Z87.891 Personal history of nicotine dependence; R05.9 Cough, unspecified; F32.A Depression, unspecified; Z79.899 Other long term (current) drug therapy; K21.9 Gastro-esophageal reflux disease without esophagitis; Z90.49 Acquired absence of other specified parts of digestive tract; Z95.2 Presence of prosthetic heart valve
CPT/HCPCS: 71046; 93005; 99282